=== PATIENT | female | born 1965 | race Caucasian/White ===

== ENCOUNTER 2017-11-29 07:30 | Outpatient (RCR) | payer OTHER, SELFPAY | END 2017-12-20 10:57 | disposition home or self-care (01) | LOC: OT 07:30 | PROVIDERS: Family Provider Family Medicine; Visit Provider Orthopaedic Surgery Adult Reconstructive Orthopaedic Surgery | DX: S43.421A Sprain of right rotator cuff capsule, initial encounter (principal) | CPT/HCPCS: 97110; 97140; 97165 ==

== ENCOUNTER → 2020-09-28 09:56 | Outpatient (POV) | payer OTHER, SELFPAY ==
[2020-09-28 10:31] VITALS: BP 124/64; PULSE 76; RESP 18; O2SAT 100; BMI 20.7
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
== END ==
PROVIDERS: PCP Nurse Practitioner Family; Visit Provider Clinical Nurse Specialist Family Health
DX: M25.551 Pain in right hip (principal); M54.5 Low back pain; M46.1 Sacroiliitis, not elsewhere classified
CPT/HCPCS: 99202; G0463

== ENCOUNTER 2020-10-09 09:59 | Day surgery (SDC) | payer OTHER, SELFPAY ==
[2020-10-09 10:02] VITALS: BP 154/75; PULSE 84; RESP 18; TEMP 36.4; O2SAT 98; BMI 21.0
[2020-10-09 10:24] VITALS: BP 138/54; PULSE 80; RESP 18; O2SAT 98
[2020-10-09 10:27] VITALS: BP 156/70; PULSE 84; RESP 18; O2SAT 100
--- NOTE | 2020-10-09 10:46 | HMH.PMPROC ---
- Procedure Date: 10/09/20 Time: 10:46 Anesthesiologist:: Val Jimenez MD Complications:: None Pre-procedure Diagnosis:: Right-sided sacroiliitis, right-sided greater trochanteric bursitis, right-sided low back pain, right-sided hip pain Post-procedure Diagnosis:: Same Indications for Procedure:: Is a very pleasant 55-year-old white female who presents today with chronic low back pain and chronic hip pain worse on the right related to the above diagnosis. He has tried and failed conservative treatment including oral pain medication and home stretching program. The plan for today is for the patient to undergo right-sided SI joint and right-sided greater trochanteric bursa injection. Procedure Details:: Informed consent was obtained and the risks and benefits of the procedure was going to the patient. Patient was taken to the procedure room. Patient was placed prone on the procedure table. The right hip was prepped using ChloraPrep. The skin and subcutaneous tissues were anesthetized using lidocaine. I placed a 22-gauge spinal needle into the inferior aspect of the right SI joint. Needle placement was confirmed with dye. After this we injected 5 mL bupivacaine 0.25% and Depo-Medrol 40 mg into the right SI joint. The patient tolerated the procedure well with no complications. Next, the skin and subcutaneous tissues overlying the right greater trochanteric bursa was anesthetized using lidocaine. I placed a 22-gauge spinal needle and advanced under fluoroscopic guidance until it contacted the right greater trochanter. Needle placement was confirmed with dye. After this I injected bupivacaine 0.25% 5 mL and Depo-Medrol 40 mg into the right trochanteric bursa. Patient tolerated the procedure well with no complications. Plan and Disposition:: We will follow-up with this patient in 2 weeks. Will reevaluate pain symptoms at that time.
[2020-10-09 10:50] VITALS: BP 135/79; PULSE 70; RESP 18; O2SAT 96
== END 2020-10-09 10:51 | disposition home or self-care (01) ==
LOC: SC.PAINP 10:01
PROVIDERS: PCP Nurse Practitioner Family; Visit Provider Anesthesiology Pain Medicine
DX: M46.1 Sacroiliitis, not elsewhere classified (principal); M70.61 Trochanteric bursitis, right hip; M54.5 Low back pain
CPT/HCPCS: 20610; 27096; 77002; G0260; J1030; Q9966

== ENCOUNTER → 2020-10-26 18:57 | Outpatient (CLI) | payer OTHER, SELFPAY | PROVIDERS: Visit Provider Internal Medicine Adolescent Medicine | DX: R39.15 Urgency of urination (principal) | CPT/HCPCS: 87086 ==

== ENCOUNTER → 2020-10-29 11:42 | Outpatient (POV) | payer OTHER, SELFPAY ==
[2020-10-29 11:55] VITALS: BP 119/75; PULSE 72; RESP 18; O2SAT 100; BMI 21.7
--- NOTE | 2020-10-29 15:32 | HMH.PAINSOAP ---
[facility] Pain Management SOAP Note Subjective:: Patient is a 55-year-old white female who presents today for follow-up after a right SI injection, right trochanteric bursa injection. She is being treated for sacroiliitis and trochanteric bursitis. She is having low back pain right side. And right hip pain. She rates her pain a 10 out of 10. Patient reports she got no relief after the injection. She rates her pain a 10 out of 10 today. She says the pain is primarily in the right low back area with radicular pain into the right lower extremity and into the right foot. The pain is severe. She says it is also going right great toe. She has tried gabapentin along with anti-inflammatories with no relief. She is also tried physical therapy for greater than 6 weeks with no relief. She continues with home stretching. She says she is no longer able to do home stretching due to the pain. She is also using heat which is given her about 20% relief Patient has not had any recent imaging of her lumbar spine. Review of Systems General: No recent weight changes, no fever, no sleep disturbances Respiratory: No cough, no shortness of air, no recurring pulmonary infections Cardiovascular/peripheral vascular: No chest pain, no palpitations, no edema, no shortness of breath Gastrointestinal: No new onset incontinence, normal bowel movements reported Genitourinary: No new onset incontinence Musculoskeletal: Right low back pain with radiation into right leg, right foot and right great toe Psychiatric: Normal mood/affect Neurological: [Denies weakness in extremities], [denies balance issues] Objective:: Physical exam General: Alert and oriented x3, no acute distress, pleasant and cooperative, [on room air] Lungs: Respirations even and unlabored, symmetrical chest expansion Eyes: PERRL Musculoskeletal: Flexion and extension of [] lumbar spine somewhat guarded secondary to pain, deep tendon reflexes normal, strength in upper and lower extremities [5/5], [abnormal gait noted] Neurological: Speech clear, account development representative equal, no gross sensory deficit Assessment:: Low back pain with lumbar radiculopathy symptoms Plan:: Not able to undergo an MRI due to pacemaker. We will order her Lyrica 75 mg 1 tablet p.o. twice daily for her radicular pain. She will also get Flexeril 5 mg 1 tablet p.o. 3 times daily to see if this helps with her pain at bedtime and as needed. Also order the patient prednisone 20 mg 1 tablet p.o. twice daily for 5 days. Patient plans to see Dr. Marie today to discuss her symptoms. I have advised the patient she will still need to undergo a CT scan before we can proceed with any further injective therapy. She is in agreement to this. We will see her back after the scan to reevaluate her symptoms. Patient and I did discuss tramadol, however, she has an allergy to tramadol as well as hydrocodone. We will not be able to prescribe the patient anything stronger than what we have prescribed today. Risks and benefits of the medication have been explained in detail to the patient. The patient has been advised to consult with his/her primary care provider and pharmacist regarding drug-drug interaction of medications currently prescribed. Patient has been instructed to contact the clinic with any concerns before the next appointment. Dr. Guerra has reviewed this note and agrees with this plan of care. This note was dictated using voice recognition software and make contain errors or omissions. [facility] History I have reviewed the patient's past medical history: Yes Medical History: Reports:: Hypertension, Internal Pacemaker Denies:: Cancer, Diabetes Mellitus Type 1, Diabetes Mellitus Type 2, MRSA, Seizures *Have you ever received a pneumonia vaccine?: No *Have you received a flu vaccine this season?: Yes Other Medical History: Denies: Blood Transfusion Reaction Laterality Cases: Right: Arthroscopy Hip Other Surgeries: Yes: Pacemaker Amputation: No
== END ==
PROVIDERS: PCP Nurse Practitioner Family; Visit Provider Clinical Nurse Specialist Family Health
DX: M54.5 Low back pain (principal); M54.16 Radiculopathy, lumbar region
CPT/HCPCS: 99212; G0463

== ENCOUNTER → 2020-11-06 13:15 | Outpatient (CLI) | payer OTHER, SELFPAY ==
--- NOTE | 2020-11-06 13:19 | CT_ITS ---
PROCEDURE: CT LUMBAR SPINE WO CON CLINICAL HISTORY: BACK PAIN Low back pain Rt hip pain COMPARISON: CR [id number] LUMBAR SPINE-2 TO 3 VIEWS from 11/15/2015 TECHNIQUE: Axial images obtained with sagittal and coronal reformats. All CT scans at the facility use one or more dose reduction, viz: automated exposure control, ma/kV adjustment per patient size (including targeted exams where dose is matched to indication, i.e. head), or iterative reconstruction technique. FINDINGS: There is normal alignment. No acute fracture or dislocation. No lytic or blastic change. There is minimal mid lumbar curvature convex right. T11-T12: T11 vertebral body has a corrugated appearance consistent with a hemangioma. T12-L1: Unremarkable. L1-L2: Small area of decreased attenuation is present in the left aspect of the L1 vertebral body with stippled sclerotic foci consistent with a small hemangioma at approximately 12 mm. Degenerative disc disease is present. L2-L3: Unremarkable. L3-L4: Minimal anterior lipping of vertebral bodies. L4-5: Minimal bulging disc with minimal anterior lipping of the vertebral bodies. There is a small left foraminal disc protrusion causing mild left-sided foraminal narrowing abutting the exiting L4 nerve root. L5-S1: Bulging disc which is eccentric toward the right along with endplate hypertrophic change and facet hypertrophy with resultant bilateral foraminal narrowing greater on the right with some impingement upon the exiting right L5 nerve root. A small osteophyte or area of ligamentous calcification noted posterior to the right facet joint. There is partial lumbarization of S1. There are bilateral large saturnino at the SI joints posteriorly. Lucency is noted within the ilium on both sides superior to the staple insertion. There is cortical disruption of the ileitis at the areas of lucency. The symmetric distribution leads 1 to suspect that this is iatrogenic in nature possibly from previous bone marrow biopsy. Please correlate with patient's surgical history. There is a moderate amount of retained colonic feces. Numerous surgical clips are present in the peritoneal area. Gallstones are noted. Nonobstructing punctate right renal calculi are present. There is a small area of fat density within the left kidney suggesting an angio myelolipoma or cortical scar with fat invagination. This measures approximately 6 mm. IMPRESSION: 1. Abnormal CT of the lumbar spine showing degenerative changes with bulging and protruding discs and facet and ligamentum hypertrophy. Please see above for detailed description at each level. 2. Postsurgical changes of the SI joint with lucencies of the ilium on both sides as described above possibly due to prior biopsy. Please correlate with clinical findings. 3. Constipation 4. Gallstones 5. Right nephrolithiasis Dictated by: Hector Christensen MD 11/07/2020 07:38 Hector Christensen MD in [place] 11/07/2020 07:38
== END ==
PROVIDERS: PCP Internal Medicine Adolescent Medicine; Visit Provider Clinical Nurse Specialist Family Health
DX: M54.5 Low back pain (principal)
CPT/HCPCS: 72131

== ENCOUNTER → 2021-02-04 13:51 | Outpatient (CLI) | payer OTHER, SELFPAY ==
[2021-02-04 14:18] LABS: Basophils # 0.1 K/mm3 (0-0.2); Basophils % 1.6 % (0.1-2.0); Eosinophils % 0.4 % (0.1-12.0); Hematocrit 47.2 % (37.0-47.0); Hemoglobin 14.6 g/dL (12.2-16.2); Lymphocytes # 1.4 K/mm3 (0.7-4.5); Lymphocytes % 23.7 % (10-50); Mean Corpuscular HGB Conc 30.8 g/dL (31.8-35.4); Mean Corpuscular Hemoglobin 30.5 pg (27.0-31.2); Mean Corpuscular Volume 98.9 fl (81-99); Mean Platelet Volume 7.6 fl (7.4-10.4); Monocytes # 0.3 K/mm3 (0.1-1.0); Monocytes % 5.2 % (1.7-9.3); Neutrophils % 69.2 % (37.0-80.0); Platelet Count 332 K/mm3 (142-424); Red Blood Count 4.77 M/mm3 (4.20-5.40); Red Cell Distribution Width 14.7 % (11.5-17.5); White Blood Count 5.8 K/mm3 (4.8-10.8)
[2021-02-04 15:01] LABS: Alanine Aminotransferase 15 U/L (12-78); Albumin Level 4.9 g/dl (3.5-5.0); Albumin/Globulin Ratio 1.7 (1.1-1.8); Alkaline Phosphatase 143 U/L (38-126); Anion Gap 16.4 mEq/L (5-15); Aspartate Amino Transferase 25 U/L (14-36); Bilirubin,Total 0.6 mg/dl (0.2-1.3); Blood Urea Nitrogen 20 mg/dl (7-17); Calcium 11.1 mg/dl (8.4-10.2); Carbon Dioxide 22 mmol/L (22.0-30.0); Chloride 108 mmol/L (98-107); Chol/HDL Ratio 1.9 (1-3.5); Cholesterol 205 mg/dl (140-200); Estimated Glomerular Filt Rate 74 ml/min (>60); GFR (African American) 90 ML/MIN (>60); Globulin 2.9 g/dL (1.3-3.2); Glucose 89 mg/dl (74-100); HDL Cholesterol 110 mg/dl (40-60); Potassium 4.4 mmoL/L (3.5-5.1); Sodium 142 mmol/L (136-145); Total Protein,Serum 7.8 g/dl (6.3-8.2); Triglycerides 104 mg/dl (30-150); VLDL Cholesterol 21 mg/dL (0-40)
[2021-02-04 15:12] LABS: Direct LDL Cholesterol 63.37 mg/dL (100-129)
== END ==
PROVIDERS: Visit Provider Internal Medicine Adolescent Medicine
DX: R30.0 Dysuria (principal); I95.0 Idiopathic hypotension
CPT/HCPCS: 36415; 80053; 80061; 85025; 87086; 87088; 87186

== ENCOUNTER → 2021-03-30 08:42 | Outpatient (CLI) | payer OTHER, SELFPAY ==
--- NOTE | 2021-03-30 08:45 | NM_ITS ---
PROCEDURE: NM BONE SCAN WHOLE BODY CLINICAL INDICATION: ABN FINDINGS ON LUMBER CT, EVAL FOR METASTIC DISEASE COMPARISON: CT CT LUMBAR SPINE WO CON from 11/06/2020 FINDINGS: Dose: 25.5 mCi technetium MDP Whole body images are obtained showing no abnormal increased activity. No evidence of increased activity within the ilium. There is slight decreased activity within the medial aspect of the right ilium as seen on the posterior views which may correspond to the defect noted on the CT scan. Has the patient had prior surgical procedure to this region? IMPRESSION: No evidence of increased activity that would indicate metastatic disease. Small area of decreased activity in the medial aspect of the right ilium corresponding to the defect noted on the CT scan. Has the patient had prior intervention at this region? Dictated by: Hector Christensen MD 03/31/2021 09:03 Hector Christensen MD in [place] 03/31/2021 09:03
--- NOTE | 2021-03-30 09:17 | HMH.ITSHM ---
Current Home Medications as stated by this patient Bre Gray or rental representative. []BUPROPION LYRICA MIDODRINE CYCLOBENAZAPRINE ASA
== END ==
PROVIDERS: PCP Internal Medicine Adolescent Medicine; Visit Provider Orthopaedic Surgery
DX: M54.50 Low back pain, unspecified (principal); R93.89 Abnormal findings on diagnostic imaging of other specified body structures
CPT/HCPCS: 78306; A9503

== ENCOUNTER → 2021-03-31 16:02 | Outpatient (CLI) | payer OTHER, SELFPAY | PROVIDERS: Visit Provider Nurse Practitioner Family | DX: N39.0 Urinary tract infection, site not specified (principal); B96.20 Unspecified Escherichia coli [E. coli] as the cause of diseases classified elsewhere | CPT/HCPCS: 87086; 87088; 87186 ==

== ENCOUNTER → 2021-06-28 09:24 | Outpatient (POV) | payer OTHER, SELFPAY ==
[2021-06-28 10:04] VITALS: BP 113/67; PULSE 68; RESP 18; TEMP 36.5; O2SAT 98; BMI 21.7
--- NOTE | 2021-06-28 11:07 | HMH.PAINSOAP ---
[facility] Pain Management SOAP Note Subjective:: Patient is a pleasant 56-year-old female who presents today for follow-up. Patient has a surgical history of bilateral SI fusion in 1996. She presents today with low back pain and right SI/Hip pain. We have previously done an SI injection with her last year but she was not able to follow-up. She says that she had minimal relief after the injection. Even with all the interventions on her right SI, she is still complaining of consistent right SI/hip pain. She is also complaining of low back pain that radiates to her right hip, leg, and foot. She denies any recent falls or traumas. She takes tylenol and ibuprofen for pain which provides minimal relief. She's also had two rounds of medial branch block at L3-L4, L4-L5 by Dr. Euceda/Dr. Peterson, ortho. She also had minimal relief from these injections. She rates her pain today as 8/10. Kana [id number], MEQ 0. ORT score is low risk. General: No recent weight changes, no fever, no sleep disturbances Respiratory: No cough, no shortness of air, no recurring pulmonary infections Cardiovascular/peripheral vascular: No chest pain, no palpitations, no edema, no shortness of breath Gastrointestinal: No new onset incontinence, normal bowel movements reported Genitourinary: No new onset incontinence Musculoskeletal: Low back pain, right hip pain Psychiatric: [Normal mood/affect] Neurological: [Denies weakness in extremities], [denies balance issues] Objective:: General: Alert and oriented x3, no acute distress, pleasant and cooperative, [on room air] Lungs: Respirations even and unlabored, symmetrical chest expansion Eyes: PERRL Musculoskeletal: Flexion and extension of lumbar [spine] somewhat guarded secondary to pain, [antalgic gait noted]; right hip is positive for LYNNE, Quentin's, compression, and distraction. Neurological: Speech clear, no gross sensory deficit Assessment:: Lumbar facet arthropathy Lumbar spondylosis Sacroiliitis Degenerative disease of the lumbar spine with lumbar radiculopathy symptoms Plan:: PROCEDURE: CT LUMBAR SPINE WO CON CLINICAL HISTORY: BACK PAIN Low back pain Rt hip pain COMPARISON: CR [id number] LUMBAR SPINE-2 TO 3 VIEWS from 11/15/2015 TECHNIQUE: Axial images obtained with sagittal and coronal reformats. All CT scans at the facility use one or more dose reduction, viz: automated exposure control, ma/kV adjustment per patient size (including targeted exams where dose is matched to indication, i.e. head), or iterative reconstruction technique. FINDINGS: There is normal alignment. No acute fracture or dislocation. No lytic or blastic change. There is minimal mid lumbar curvature convex right. T11-T12: T11 vertebral body has a corrugated appearance consistent with a hemangioma. T12-L1: Unremarkable. L1-L2: Small area of decreased attenuation is present in the left aspect of the L1 vertebral body with stippled sclerotic foci consistent with a small hemangioma at approximately 12 mm. Degenerative disc disease is present. L2-L3: Unremarkable. L3-L4: Minimal anterior lipping of vertebral bodies. L4-5: Minimal bulging disc with minimal anterior lipping of the vertebral bodies. There is a small left foraminal disc protrusion causing mild left-sided foraminal narrowing abutting the exiting L4 nerve root. L5-S1: Bulging disc which is eccentric toward the right along with endplate hypertrophic change and facet hypertrophy with resultant bilateral foraminal narrowing greater on the right with some impingement upon the exiting right L5 nerve root. A small osteophyte or area of ligamentous calcification noted posterior to the right facet joint. There is partial lumbarization of S1. There are bilateral large saturnino at the SI joints posteriorly. Lucency is noted within the ilium on both sides superior to the staple insertion. There is cortical disruption of the ileitis at the
== END ==
PROVIDERS: Visit Provider Student in an Organized Health Care Education/Training Program
DX: M54.06 Panniculitis affecting regions of neck and back, lumbar region (principal); M47.896 Other spondylosis, lumbar region; M46.1 Sacroiliitis, not elsewhere classified; M51.16 Intervertebral disc disorders with radiculopathy, lumbar region
CPT/HCPCS: 99212; G0463

== ENCOUNTER → 2021-07-08 07:01 | Outpatient (CLI) | payer OTHER, SELFPAY ==
[2021-07-08 14:36] LABS: Basophils # 0.1 K/mm3 (0-0.2); Basophils % 1.8 % (0.1-2.0); Eosinophils # 0.1 K/mm3 (0.0-0.4); Eosinophils % 2.7 % (0.1-12.0); Hematocrit 39.8 % (37.0-47.0); Hemoglobin 12.4 g/dL (12.2-16.2); Lymphocytes # 1.7 K/mm3 (0.7-4.5); Lymphocytes % 37.2 % (10-50); Mean Corpuscular HGB Conc 31.2 g/dL (31.8-35.4); Mean Corpuscular Hemoglobin 30.7 pg (27.0-31.2); Mean Corpuscular Volume 98.2 fl (81-99); Mean Platelet Volume 9.8 fl (7.4-10.4); Monocytes # 0.3 K/mm3 (0.1-1.0); Monocytes % 6.9 % (1.7-9.3); Neutrophils # 2.4 K/mm3 (1.8-7.8); Neutrophils % 51.4 % (37.0-80.0); Platelet Count 296 K/mm3 (142-424); Red Blood Count 4.05 M/mm3 (4.20-5.40); White Blood Count 4.6 K/mm3 (4.8-10.8)
[2021-07-08 14:40] LABS: Alanine Aminotransferase 22 U/L (12-78); Albumin Level 4.5 g/dl (3.5-5.0); Albumin/Globulin Ratio 1.9 (1.1-1.8); Alkaline Phosphatase 114 U/L (38-126); Anion Gap 14.3 mEq/L (5-15); Aspartate Amino Transferase 25 U/L (14-36); Bilirubin,Total 0.6 mg/dl (0.2-1.3); Blood Urea Nitrogen 35 mg/dl (7-17); Calcium 10.4 mg/dl (8.4-10.2); Carbon Dioxide 25 mmol/L (22.0-30.0); Chloride 105 mmol/L (98-107); Estimated Glomerular Filt Rate 51 ml/min (>60); GFR (African American) 62 ML/MIN (>60); Globulin 2.4 g/dL (1.3-3.2); Glucose 91 mg/dl (74-100); Potassium 4.3 mmoL/L (3.5-5.1); Sodium 140 mmol/L (136-145); Total Protein,Serum 6.9 g/dl (6.3-8.2)
== END ==
PROVIDERS: Visit Provider Nurse Practitioner Family
DX: N39.0 Urinary tract infection, site not specified (principal); E83.52 Hypercalcemia
CPT/HCPCS: 36415; 80053; 83970; 85025

== ENCOUNTER 2021-07-23 09:41 | Day surgery (SDC) | payer OTHER, SELFPAY ==
[2021-07-23 10:08] VITALS: BP 115/91; PULSE 86; RESP 16; TEMP 36.4; O2SAT 100; BMI 21.7
[2021-07-23 10:23] VITALS: BP 119/70; BP 139/76; PULSE 55; PULSE 67; RESP 18; RESP 20; O2SAT 100; O2SAT 97
[2021-07-23 10:25] VITALS: BP 119/72; PULSE 77; RESP 20; O2SAT 100
[2021-07-23 10:31] VITALS: BP 127/70; PULSE 63; RESP 20; O2SAT 90
--- NOTE | 2021-07-23 10:39 | HMH.PMPROC ---
- Procedure Date: 07/23/21 Time: 10:39 Anesthesiologist:: Daryn Eller CRNA Complications:: None Pre-procedure Diagnosis:: Generative disc disease lumbar spine multiple levels. Post-procedure Diagnosis:: Same Indications for Procedure:: Patient is a very pleasant 56-year-old white female who is responded well in the past in our clinic with bilateral SI joint injections. Trochanteric bursa injections. However, she is having this dull achy pain in the low back midline accompanied with some bilateral leg radicular symptoms. She presents today for lumbar epidural steroid injection at the L4-5 level. Procedure Details:: Procedure: Lumbar epidural steroid injection under fluoroscopy Informed consent was obtained and the risks and benefits of the procedure were explained to the patient. The patient was taken to the procedure room and noninvasive monitors placed, including noninvasive blood pressure cuff and pulse oximeter. The back was viewed using C-arm Fluoroscopy and prepped using Betadine as a cleansing solution and the L4-L5 interspace was palpated. Skin and subcutaneous tissues were anesthetized using lidocaine 1.5% and a 25-gauge needle. After this, an 18-gauge Touhy epidural needle was placed into the L4-L5 interspace and advanced using fluoroscopic guidance and loss of resistance to air until the epidural space was encountered. After confirmation of needle placement in the epidural space, with dye, a solution containing lidocaine 1.5%, 4 mL and Depo-Medrol 80 mg were incrementally injected into the lumbar epidural space. The patient tolerated the procedure well with no complications. The patient was observed in the Pain Clinic and then discharged home neurologically intact. Plan and Disposition:: Patient was discharged without incident. She will follow up in the clinic.
== END 2021-07-23 10:40 | disposition home or self-care (01) ==
LOC: SC.PAINP 09:42
PROVIDERS: PCP Internal Medicine Adolescent Medicine; Visit Provider Nurse Anesthetist, Certified Registered
DX: M46.1 Sacroiliitis, not elsewhere classified; M47.896 Other spondylosis, lumbar region; M51.16 Intervertebral disc disorders with radiculopathy, lumbar region; I10 Essential (primary) hypertension; Z95.0 Presence of cardiac pacemaker; J45.909 Unspecified asthma, uncomplicated; F41.9 Anxiety disorder, unspecified; F32.A Depression, unspecified
CPT/HCPCS: 62323; J1040

== ENCOUNTER → 2021-09-10 08:10 | Outpatient (CLI) | payer OTHER, SELFPAY ==
[2021-09-10 08:19] LABS: Microscopic, Urine URINE MICROSCOPIC (MICROSCOPIC)
[2021-09-10 08:38] LABS: Basophils # 0.1 K/mm3 (0-0.2); Basophils % 1.8 % (0.1-2.0); Eosinophils # 0.1 K/mm3 (0.0-0.4); Eosinophils % 1.5 % (0.1-12.0); Hematocrit 40.1 % (37.0-47.0); Hemoglobin 12.6 g/dL (12.2-16.2); Lymphocytes # 1.5 K/mm3 (0.7-4.5); Mean Corpuscular HGB Conc 31.4 g/dL (31.8-35.4); Mean Corpuscular Hemoglobin 30.6 pg (27.0-31.2); Mean Corpuscular Volume 97.4 fl (81-99); Mean Platelet Volume 7.3 fl (7.4-10.4); Monocytes # 0.3 K/mm3 (0.1-1.0); Monocytes % 6.2 % (1.7-9.3); Neutrophils # 3.3 K/mm3 (1.8-7.8); Neutrophils % 62.4 % (37.0-80.0); Platelet Count 355 K/mm3 (142-424); Red Blood Count 4.11 M/mm3 (4.20-5.40); Red Cell Distribution Width 14.6 % (11.5-17.5); White Blood Count 5.2 K/mm3 (4.8-10.8)
[2021-09-10 08:44] LABS: Bilirubin,Urine Negative (Negative); Blood, Urine 2+ (Negative); Color,Urine YELLOW (Yellow); Glucose,Urine (UA) Negative (Negative); Ketones,Urine Negative (Negative); Leukocyte Esterase,Urine 1+ (Negative); Nitrate,Urine Negative (Negative); Protein,Urine 2+ (Negative); Specific Gravity, Urine 1.025 (1.005-1.030); Urobilinogen,Urine 0.2 EU/dl (0.2)
[2021-09-10 09:17] LABS: Albumin Level 4.7 g/dl (3.5-5.0); Anion Gap 13.1 mEq/L (5-15); Blood Urea Nitrogen 22 mg/dl (7-17); Calcium 10.9 mg/dl (8.4-10.2); Carbon Dioxide 23 mmol/L (22.0-30.0); Chloride 107 mmol/L (98-107); Estimated Glomerular Filt Rate 65 ml/min (>60); GFR (African American) 78 ML/MIN (>60); Glucose 96 mg/dl (74-100); Intact Parathyroid Hormone 103.1 pg/mL (7.5-53.5); Phosphorous 3.3 mg/dl (2.5-4.5); Potassium 4.1 mmoL/L (3.5-5.1); Sodium 139 mmol/L (136-145)
[2021-09-10 09:18] LABS: Appearance,Urine Turbid (Clear)
[2021-09-10 09:19] LABS: Bacteria,Urine 1+ /lpf; Creatinine,Urine Random 54 mg/dL (Not Estab.); RBC,Urine Occasional #/hpf (0-3); Squamous Epithelial Cell,Urine Occasional #/hpf (0-5)
== END ==
PROVIDERS: PCP Internal Medicine Adolescent Medicine; Visit Provider Internal Medicine Nephrology
DX: N28.9 Disorder of kidney and ureter, unspecified (principal); E21.3 Hyperparathyroidism, unspecified; E55.9 Vitamin D deficiency, unspecified
CPT/HCPCS: 36415; 80069; 81001; 82306; 82570; 83970; 84155; 85025; 87086; 87088; 87186

== ENCOUNTER → 2021-09-13 13:18 | Outpatient (POV) | payer OTHER, SELFPAY | PROVIDERS: Visit Provider Internal Medicine Nephrology | DX: Z00.00 Encounter for general adult medical examination without abnormal findings (principal) ==

== ENCOUNTER → 2021-10-20 08:24 | Outpatient (CLI) | payer OTHER, SELFPAY ==
--- NOTE | 2021-10-20 08:29 | US_ITS ---
FINAL REPORT CLINICAL HISTORY: ELEVATED SERUM CALCIUM,ELEVATED PARATHYROID HORMONE,HYPERTHY FINDINGS: Limited sonographic images of the neck soft tissue were obtained. There is no evidence of adenopathy. Small bilateral thyroid nodules are seen. Individual nodules measure up to 7 mm. IMPRESSION: Small bilateral thyroid nodules. Dedicated thyroid ultrasound could better evaluate. Reviewed, Interpreted and Dictated by Wander Watts MD Transcribed by Telma Reed Authenticated and [facility]
--- NOTE | 2021-10-20 08:31 | NM_ITS ---
FINAL REPORT CLINICAL HISTORY: HYPERTHYROIDISM,ELEVATED SERUM CALCIUM,ELEVATED PARATHYROID HORMONE COMPARISON: 19.0 mCi technetium 99 M sestamibi was injected into the right hand. FINDINGS: On the immediate images, there is diffuse activity throughout both lobes of the thyroid. On the delayed 2 hour images, there is no discrete focus of residual activity. There is no definite evidence of parathyroid adenoma. IMPRESSION: No definite evidence of parathyroid adenoma. Reviewed, Interpreted and Dictated by Wander Watts MD Transcribed by Telma Reed Authenticated and . [facility]
== END ==
PROVIDERS: PCP Internal Medicine Adolescent Medicine; Visit Provider Internal Medicine Nephrology
DX: E83.52 Hypercalcemia (principal); E34.9 Endocrine disorder, unspecified
CPT/HCPCS: 76536; 78071; A9500

== ENCOUNTER → 2021-11-29 13:02 | Outpatient (CLI) | payer OTHER, SELFPAY ==
[2021-11-29 17:23] LABS: Basophils # 0.1 K/mm3 (0-0.2); Basophils % 1.5 % (0.1-2.0); Eosinophils # 0.1 K/mm3 (0.0-0.4); Eosinophils % 2.5 % (0.1-12.0); Hematocrit 38.5 % (37.0-47.0); Hemoglobin 11.4 g/dL (12.2-16.2); Lymphocytes # 1.5 K/mm3 (0.7-4.5); Lymphocytes % 31.8 % (10-50); Mean Corpuscular HGB Conc 29.6 g/dL (31.8-35.4); Mean Corpuscular Hemoglobin 29.7 pg (27.0-31.2); Mean Corpuscular Volume 100.4 fl (81-99); Mean Platelet Volume 9.8 fl (7.4-10.4); Monocytes # 0.4 K/mm3 (0.1-1.0); Monocytes % 7.6 % (1.7-9.3); Neutrophils # 2.8 K/mm3 (1.8-7.8); Neutrophils % 56.6 % (37.0-80.0); Platelet Count 309 K/mm3 (142-424); Red Blood Count 3.84 M/mm3 (4.20-5.40); White Blood Count 4.9 K/mm3 (4.8-10.8)
[2021-11-29 19:00] LABS: Alanine Aminotransferase 12 U/L (12-78); Albumin Level 3.8 g/dl (3.5-5.0); Albumin/Globulin Ratio 1.7 (1.1-1.8); Alkaline Phosphatase 117 U/L (38-126); Anion Gap 10.5 mEq/L (5-15); Aspartate Amino Transferase 19 U/L (14-36); Blood Urea Nitrogen 22 mg/dl (7-17); Calcium 9.4 mg/dl (8.4-10.2); Carbon Dioxide 25 mmol/L (22.0-30.0); Chloride 110 mmol/L (98-107); Chol/HDL Ratio 2.3 (1-3.5); Cholesterol 160 mg/dl (140-200); Estimated Glomerular Filt Rate 57 ml/min (>60); GFR (African American) 69 ML/MIN (>60); Globulin 2.2 g/dL (1.3-3.2); HDL Cholesterol 71 mg/dl (40-60); Potassium 4.5 mmoL/L (3.5-5.1); Sodium 141 mmol/L (136-145); Triglycerides 188 mg/dl (30-150); VLDL Cholesterol 38 mg/dL (0-40)
[2021-11-29 19:11] LABS: Intact Parathyroid Hormone 91.2 pg/mL (7.5-53.5)
[2021-11-29 19:15] LABS: Bilirubin,Total < 0.1 mg/dl (0.2-1.3)
[2021-11-29 19:20] LABS: Glucose 44 mg/dl (74-100)
[2021-12-01 13:47] LABS: Direct LDL Cholesterol 52 mg/dL (100-129)
[2021-12-04 21:07] LABS: C-Telopeptide Serum 836 pg/mL (.)
== END ==
PROVIDERS: PCP Internal Medicine; Visit Provider Internal Medicine
DX: I95.9 Hypotension, unspecified (principal); E78.5 Hyperlipidemia, unspecified; E21.3 Hyperparathyroidism, unspecified; E83.52 Hypercalcemia; N19 Unspecified kidney failure; N39.0 Urinary tract infection, site not specified; B96.89 Other specified bacterial agents as the cause of diseases classified elsewhere; Z87.442 Personal history of urinary calculi
CPT/HCPCS: 80053; 80061; 82523; 83970; 85025; 87086; 87088; 87186

== ENCOUNTER → 2022-01-10 12:48 | Outpatient (CLI) | payer OTHER, SELFPAY | PROVIDERS: PCP Internal Medicine; Visit Provider Internal Medicine | DX: N39.0 Urinary tract infection, site not specified (principal); B96.29 Other Escherichia coli [E. coli] as the cause of diseases classified elsewhere | CPT/HCPCS: 87086; 87088; 87186 ==

== ENCOUNTER → 2022-02-21 15:00 | Outpatient (CLI) | payer OTHER, SELFPAY ==
[2022-02-21 16:16] LABS: Basophils # 0.1 K/mm3 (0-0.2); Basophils % 1.6 % (0.1-2.0); Eosinophils # 0.2 K/mm3 (0.0-0.4); Eosinophils % 2.7 % (0.1-12.0); Hematocrit 39.3 % (37.0-47.0); Hemoglobin 12.5 g/dL (12.2-16.2); Lymphocytes # 1.9 K/mm3 (0.7-4.5); Lymphocytes % 33.5 % (10-50); Mean Corpuscular HGB Conc 31.9 g/dL (31.8-35.4); Mean Corpuscular Hemoglobin 29.8 pg (27.0-31.2); Mean Corpuscular Volume 93.5 fl (81-99); Mean Platelet Volume 8.8 fl (7.4-10.4); Monocytes # 0.4 K/mm3 (0.1-1.0); Monocytes % 6.7 % (1.7-9.3); Neutrophils # 3.2 K/mm3 (1.8-7.8); Neutrophils % 55.4 % (37.0-80.0); Platelet Count 364 K/mm3 (142-424); Red Blood Count 4.21 M/mm3 (4.20-5.40); Red Cell Distribution Width 14.4 % (11.5-17.5); Total Iron Binding Capacity 494 ug/dL (265-497); White Blood Count 5.7 K/mm3 (4.8-10.8)
[2022-02-21 17:14] LABS: Vitamin B12 216 pg/mL (239-931)
[2022-02-21 17:46] LABS: Iron 57 ug/dL (37-170)
== END ==
PROVIDERS: PCP Internal Medicine; Visit Provider Internal Medicine
DX: I95.9 Hypotension, unspecified (principal); E83.52 Hypercalcemia; D64.9 Anemia, unspecified
CPT/HCPCS: 36415; 82607; 82746; 83540; 83550; 85025

== ENCOUNTER → 2022-04-15 16:49 | Outpatient (CLI) | payer OTHER, SELFPAY | PROVIDERS: PCP Internal Medicine; Visit Provider Internal Medicine | DX: N39.0 Urinary tract infection, site not specified (principal); B96.89 Other specified bacterial agents as the cause of diseases classified elsewhere | CPT/HCPCS: 87086; 87088; 87186 ==

== ENCOUNTER → 2022-05-06 16:43 | Outpatient (CLI) | payer OTHER, SELFPAY | PROVIDERS: PCP Internal Medicine; Visit Provider Internal Medicine | DX: N39.0 Urinary tract infection, site not specified (principal); B96.29 Other Escherichia coli [E. coli] as the cause of diseases classified elsewhere | CPT/HCPCS: 87086; 87088; 87186 ==

== ENCOUNTER 2022-05-08 04:19 | Emergency (ER) | payer OTHER, SELFPAY ==
[2022-05-08 04:36] LABS: Microscopic, Urine URINE MICROSCOPIC (MICROSCOPIC)
[2022-05-08 04:39] VITALS: BP 126/66; PULSE 69; RESP 18; TEMP 36.7; O2SAT 97; BMI 22.6
[2022-05-08 04:42] LABS: Appearance,Urine CLEAR (Clear); Blood, Urine TRACE-I (Negative); Color,Urine YELLOW (Yellow); Glucose,Urine (UA) TRACE (Negative); Ketones,Urine 1+ (Negative); Leukocyte Esterase,Urine 1+ (Negative); Nitrate,Urine POSITIVE (Negative); PH,Urine 6.5 (5.0-8.5); Protein,Urine 1+ (Negative); Specific Gravity, Urine 1.025 (1.005-1.030)
--- NOTE | 2022-05-08 04:46 | CT_ITS ---
PROCEDURE INFORMATION: Exam: CT Abdomen And Pelvis Without Contrast Exam date and time: 05/08/2022 5:01 AM Age: 57 years old Clinical indication: Abdominal pain; Additional info: Right flank pain TECHNIQUE: Imaging protocol: Computed tomography of the abdomen and pelvis without contrast. Radiation optimization: All CT scans at this facility use at least one of these dose optimization techniques: automated exposure control; mA and/or kV adjustment per patient size (includes targeted exams where dose is matched to clinical indication); or iterative reconstruction. Other protocol: This patient has received 0 known CTs and 0 known cardiac nuclear medicine studies in the 12 months prior to the current study. COMPARISON: NM BONE SCAN WHOLE BODY 03/30/2021 1:28 PM FINDINGS: Liver: Normal. No mass. Gallbladder and bile ducts: Multiple gallstones. No evidence of acute cholecystitis. Pancreas: Normal. No ductal dilation. Spleen: Benign calcifications of the spleen. Adrenal glands: Normal. No mass. Kidneys and ureters: No hydronephrosis, hydroureter, nephrolithiasis, or urolithiasis is present. Stomach and bowel: Prior small bowel resection. Right lower quadrant ostomy. Appendix: No evidence of appendicitis. Intraperitoneal space: Unremarkable. No free air. No significant fluid collection. Vasculature: Unremarkable. No abdominal aortic aneurysm. Lymph nodes: Unremarkable. No enlarged lymph nodes. Urinary bladder: Unremarkable as visualized. Reproductive: Prior hysterectomy. 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 Soft tissues: Unremarkable. IMPRESSION: 1. No acute process to explain the patient's abdominal pain. 2. Cholelithiasis without acute cholecystitis. 3. No evidence of renal stone or obstruction. 4. Prior small bowel resections. COMMENTS: Consistent with the [employer]'s Incidental Findings Committee white paper (J Am Ken Radiol 2018): Any incidental renal lesion less than 1 cm or classified as too small to characterize, or any incidental cystic renal lesion characterized as simple-appearing, is likely benign. No follow-up imaging is recommended for these lesions per consensus recommendations based on imaging criteria.
--- NOTE | 2022-05-08 04:47 | HMH.EDGENADL ---
Discharge Plan Disposition Patient Disposition: Home, Self-Care Condition: Good Chief Complaint: Urogenital-Female Prescriptions Prescriptions: New cephalexin 500 mg capsule 500 mg PO BID 7 Days Qty: 14 0RF No Action midodrine 5 MG tablet 5 mg PO DAILY aspirin 81 MG tablet,chewable 81 mg PO DAILY bupropion HCl 100 MG tablet sustained-release 12 hr 100 mg PO BID cetirizine 10 MG tablet 10 mg PO DAILY omeprazole 20 MG capsule,delayed release(DR/EC) 20 mg PO DAILY meloxicam 7.5 MG tablet 7.5 mg PO DAILY Referrals Follow up/Referrals: Honorio Mackey MD [Primary Care Provider] - See instructions Clinical Impressions Clinical Impression: Urinary tract infection Instructions Patient Instructions: DI for Urinary Tract Infection (UTI), Cephalexin Discharge ED Provider: Hoang Diaz Adult HPI General Chief complaint: Urogenital-Female Stated complaint: Hurts with voiding Time Seen by Provider: 05/08/22 04:29 Mode of Arrival: Ambulatory Source of Information: Patient Limitations: No Limitations Description of Symptoms (Recalled from ER Triage Doc. by RN): Pt arrives to er private vehicle. 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 States that she cath's herself 10x a day. Was seen by pcp on Monday and diagnosed with a uti and prescribed macrobid and pyridium. States that she was seen a few weeks ago for the same issue and was prescribed the same medication. States that there was a urine culture completed at that time to diagnose cause of uti. Pt states that she continues to have lower back and groin pain that continues to get worse. History of Present Illness HPI narrative: 57-year-old female with history of low back pain, arrives via private vehicle, states she frequently self catheterizes since 2016 urinary diversion, approximately 10 times a day. She was seen by PCP on 04/15, for dysuria and burning and hematuria and was diagnosed with UTI, placed on Macrobid and Pyridium. She states over the last week she had noticed recurrence of symptoms again, has not been on any other subsequently antibiotics. She presents tonight with complaint of persistent dysuria, groin pain, lower back pain. She states she has had bladder stones in the past, denies any nephrolithiasis. She denies fevers, nausea or vomiting. Related Data Home Medications Medication Instructions Recorded Confirmed aspirin 81 mg chewable tablet 81 mg PO DAILY preventative 09/28/20 07/23/21 bupropion HCl 100 mg tablet,12 hr 100 mg PO BID mood 09/28/20 07/23/21 sustained-release midodrine 5 mg tablet 5 mg PO DAILY BP 09/28/20 07/23/21 cetirizine 10 mg tablet 10 mg PO DAILY Allergy symptoms 06/28/21 07/23/21 omeprazole 20 mg capsule,delayed 20 mg PO DAILY GERD 06/28/21 07/23/21 release meloxicam 7.5 mg tablet 7.5 mg PO DAILY Pain 07/23/21 07/23/21 Previous Rx's Medication Instructions Recorded cephalexin 500 mg capsule 500 mg PO BID 7 days #14 caps 05/08/22 Allergies Allergy/AdvReac Type Severity Reaction Status Date / Time amitriptyline [From Elavil] Allergy Intermediate PASS OUT Verified 07/23/21 10:09 acetaminophen [From Percocet] Allergy Mild I-ITCHING Verified 07/23/21 10:09 hydrocodone [From Lortab] Allergy Mild I-ITCHING Verified 07/23/21 10:09 ketorolac [From Toradol] Allergy Mild I-ITCHING Verified 07/23/21 10:09 sulfamethoxazole Allergy Mild I-ITCHING Verified 07/23/21 10:09 [From Bactrim] trimethoprim [From Bactrim] Allergy Mild I-ITCHING Verified 07/23/21 10:09 butorphanol [From STADOL] Allergy Unknown Verified 07/23/21 10:09 ciprofloxacin [CIPROFLOXACIN] Allergy Unknown Verified 07/23/21 10:09 methadone [METHADONE] Allergy Unknown Verified 07/23/21 10:09 morphine [MORPHINE] Allergy Unknown Verified 07/23/21 10:09 oxycodone [OXYCODONE] Allergy Unknown BLISTERS Verified 07/23/21 10:09 IN MOUTH sumatriptan [From IMITREX] Allergy Unknow
[2022-05-08 04:58] LABS: Bacteria,Urine 1+ /lpf; Bilirubin,Urine 1+ (Negative); RBC,Urine Occasional #/hpf (0-3); Squamous Epithelial Cell,Urine Occasional #/hpf (0-5); WBC,Urine 20-50 #/hpf (0-3)
[2022-05-08 07:15] LABS: Alanine Aminotransferase 13 U/L (12-78); Albumin Level 4.6 g/dl (3.5-5.0); Albumin/Globulin Ratio 1.9 (1.1-1.8); Alkaline Phosphatase 128 U/L (38-126); Aspartate Amino Transferase 19 U/L (14-36); Bilirubin,Total 0.6 mg/dl (0.2-1.3); Blood Urea Nitrogen 21 mg/dl (7-17); Carbon Dioxide 23 mmol/L (22.0-30.0); Chloride 111 mmol/L (98-107); Creatinine Clearance Estimated 53 mL/min (50-200); Estimated Glomerular Filt Rate 57 ml/min (>60); GFR (African American) 69 ML/MIN (>60); Globulin 2.4 g/dL (1.3-3.2); Glucose 105 mg/dl (74-100); Sodium 141 mmol/L (136-145)
[2022-05-08 07:33] LABS: Basophils # 0.1 K/mm3 (0-0.2); Basophils % 1.5 % (0.1-2.0); Eosinophils # 0.1 K/mm3 (0.0-0.4); Hematocrit 35.1 % (37.0-47.0); Hemoglobin 11.2 g/dL (12.2-16.2); Lymphocytes # 1.6 K/mm3 (0.7-4.5); Lymphocytes % 27.4 % (10-50); Mean Corpuscular HGB Conc 31.9 g/dL (31.8-35.4); Mean Corpuscular Hemoglobin 30.4 pg (27.0-31.2); Mean Corpuscular Volume 95.2 fl (81-99); Mean Platelet Volume 8.4 fl (7.4-10.4); Monocytes # 0.3 K/mm3 (0.1-1.0); Monocytes % 5.8 % (1.7-9.3); Neutrophils # 3.8 K/mm3 (1.8-7.8); Neutrophils % 64.3 % (37.0-80.0); Platelet Count 308 K/mm3 (142-424); Red Blood Count 3.69 M/mm3 (4.20-5.40); Red Cell Distribution Width 14.9 % (11.5-17.5); White Blood Count 5.9 K/mm3 (4.8-10.8)
[2022-05-08 08:00] VITALS: BP 123/73; PULSE 71; RESP 18; TEMP 36.7; O2SAT 98
== END 2022-05-08 08:00 | disposition home or self-care (01) ==
PROVIDERS: Emergency Provider Emergency Medicine; PCP Internal Medicine
DX: N39.0 Urinary tract infection, site not specified (principal)
CPT/HCPCS: 74176; 80053; 81001; 85025; 87086; 99285

== ENCOUNTER → 2022-08-15 12:36 | Outpatient (CLI) | payer OTHER, SELFPAY ==
[2022-08-15 15:14] LABS: Basophils % 0.4 % (0.1-2.0); Eosinophils # 0.1 K/mm3 (0.0-0.4); Eosinophils % 1.9 % (0.1-12.0); Hematocrit 39.6 % (37.0-47.0); Hemoglobin 12.5 g/dL (12.2-16.2); Lymphocytes # 1.9 K/mm3 (0.7-4.5); Lymphocytes % 28.5 % (10-50); Mean Corpuscular HGB Conc 31.6 g/dL (31.8-35.4); Mean Corpuscular Hemoglobin 28.7 pg (27.0-31.2); Mean Corpuscular Volume 90.7 fl (81-99); Mean Platelet Volume 9.4 fl (7.4-10.4); Monocytes # 0.4 K/mm3 (0.1-1.0); Monocytes % 6.3 % (1.7-9.3); Neutrophils # 4.1 K/mm3 (1.8-7.8); Neutrophils % 62.9 % (37.0-80.0); Platelet Count 310 K/mm3 (142-424); Red Blood Count 4.36 M/mm3 (4.20-5.40); Red Cell Distribution Width 13.8 % (11.5-17.5); White Blood Count 6.5 K/mm3 (4.8-10.8)
[2022-08-15 15:49] LABS: Alanine Aminotransferase 17 U/L (12-78); Albumin Level 4.8 g/dl (3.5-5.0); Albumin/Globulin Ratio 1.9 (1.1-1.8); Alkaline Phosphatase 138 U/L (38-126); Anion Gap 18.8 mEq/L (5-15); Aspartate Amino Transferase 25 U/L (14-36); Bilirubin,Total 0.6 mg/dl (0.2-1.3); Blood Urea Nitrogen 25 mg/dl (7-17); Calcium 10.5 mg/dl (8.4-10.2); Carbon Dioxide 22 mmol/L (22.0-30.0); Chloride 103 mmol/L (98-107); Cholesterol 196 mg/dl (140-200); Estimated Glomerular Filt Rate 57 ml/min (>60); GFR (African American) 69 ML/MIN (>60); Globulin 2.5 g/dL (1.3-3.2); Glucose 73 mg/dl (74-100); Phosphorous 2.8 mg/dl (2.5-4.5); Potassium 4.8 mmoL/L (3.5-5.1); Sodium 139 mmol/L (136-145); Total Protein,Serum 7.3 g/dl (6.3-8.2); Triglycerides 168 mg/dl (30-150); VLDL Cholesterol 34 mg/dL (0-40)
[2022-08-15 15:58] LABS: Intact Parathyroid Hormone 106.3 pg/mL (7.5-53.5)
[2022-08-15 15:59] LABS: Direct LDL Cholesterol 56.47 mg/dL (100-129)
[2022-08-15 16:00] LABS: Chol/HDL Ratio 1.8 (1-3.5); HDL Cholesterol 112 mg/dl (40-60)
== END ==
PROVIDERS: PCP Internal Medicine; Visit Provider Internal Medicine
DX: I95.9 Hypotension, unspecified (principal); D64.9 Anemia, unspecified; E21.0 Primary hyperparathyroidism; E78.5 Hyperlipidemia, unspecified; N39.0 Urinary tract infection, site not specified; Z87.442 Personal history of urinary calculi
CPT/HCPCS: 80053; 80061; 83970; 84100; 85025

== ENCOUNTER → 2022-09-08 09:27 | Outpatient (CLI) | payer OTHER, SELFPAY ==
--- NOTE | 2022-09-08 09:31 | XR_ITS ---
FINAL REPORT CLINICAL HISTORY: shoulder pain per patient fluid on top of shoulder going into neck feels a pop sometimes when moving shoulder FINDINGS: RIGHT SHOULDER Three views demonstrate no acute fracture or dislocation. The visualized joint spaces are normally aligned. The soft tissues are unremarkable. IMPRESSION: No acute process. Reviewed, Interpreted and Dictated by Wander Watts MD Transcribed by Marisol Mota Authenticated and . [facility]
== END ==
PROVIDERS: PCP Internal Medicine; Visit Provider Orthopaedic Surgery
DX: M25.511 Pain in right shoulder (principal)
CPT/HCPCS: 73030

== ENCOUNTER 2022-12-26 10:00 | Outpatient (RCR) | payer OTHER, SELFPAY | END 2023-01-26 16:50 | disposition home or self-care (01) | LOC: PT 10:00 | PROVIDERS: Visit Provider Orthopaedic Surgery Adult Reconstructive Orthopaedic Surgery | DX: M25.511 Pain in right shoulder (principal) | CPT/HCPCS: 97110; 97163 ==

== ENCOUNTER → 2023-02-08 13:25 | Outpatient (CLI) | payer OTHER, SELFPAY ==
[2023-02-08 15:52] LABS: Alanine Aminotransferase 20 U/L (12-78); Albumin Level 4.7 g/dl (3.5-5.0); Albumin/Globulin Ratio 1.8 (1.1-1.8); Alkaline Phosphatase 92 U/L (38-126); Anion Gap 17.2 mEq/L (5-15); Aspartate Amino Transferase 26 U/L (14-36); Bilirubin,Total 0.3 mg/dl (0.2-1.3); Blood Urea Nitrogen 21 mg/dl (7-17); Calcium 10.6 mg/dl (8.4-10.2); Carbon Dioxide 21 mmol/L (22.0-30.0); Chloride 106 mmol/L (98-107); Cholesterol 200 mg/dl (140-200); Estimated Glomerular Filt Rate 64 ml/min (>60); GFR (African American) 78 ML/MIN (>60); Globulin 2.6 g/dL (1.3-3.2); Glucose 80 mg/dl (74-100); Potassium 4.2 mmoL/L (3.5-5.1); Sodium 140 mmol/L (136-145); Total Protein,Serum 7.3 g/dl (6.3-8.2); Triglycerides 148 mg/dl (30-150); VLDL Cholesterol 30 mg/dL (0-40)
[2023-02-08 16:01] LABS: HDL Cholesterol 94 mg/dl (40-60)
[2023-02-08 16:03] LABS: Direct LDL Cholesterol 72.52 mg/dL (100-129); Intact Parathyroid Hormone 103.7 pg/mL (7.5-53.5)
== END ==
PROVIDERS: PCP Internal Medicine; Visit Provider Internal Medicine
DX: E21.3 Hyperparathyroidism, unspecified (principal); E78.5 Hyperlipidemia, unspecified; E16.2 Hypoglycemia, unspecified; E53.8 Deficiency of other specified B group vitamins; N19 Unspecified kidney failure
CPT/HCPCS: 80053; 80061; 83970

== ENCOUNTER → 2023-03-15 15:16 | Outpatient (CLI) | payer OTHER, SELFPAY ==
--- NOTE | 2023-03-15 15:24 | MM_ITS ---
PROCEDURE INFORMATION: Exam: MG Bilateral Screening 3D Mammography Exam date and time: 03/15/2023 3:20 PM Age: 58 years old Clinical indication: Screening examination TECHNIQUE: Imaging protocol: Bilateral Screening tomosynthesis and 2D mammography including computer-aided detection (CAD) when performed. COMPARISON: None FINDINGS: MAMMOGRAPHY: Breast composition: There are scattered areas of fibroglandular density. Mass: None. Architectural distortion: None. Calcifications: No suspicious calcifications. Asymmetric density: None. Skin thickening: None. Axillary adenopathy: None. IMPRESSION: No mammographic evidence of malignancy. Annual screening is recommended unless otherwise clinically indicated. ASSESSMENT: BI-RADS Category 1: Negative
== END ==
PROVIDERS: PCP Internal Medicine; Visit Provider Internal Medicine
DX: Z12.31 Encounter for screening mammogram for malignant neoplasm of breast (principal)
CPT/HCPCS: 77063; 77067

== ENCOUNTER → 2023-03-20 19:24 | Outpatient (CLI) | payer OTHER, SELFPAY ==
[2023-03-20 20:06] LABS: Microscopic, Urine URINE MICROSCOPIC (MICROSCOPIC)
[2023-03-20 22:09] LABS: Appearance,Urine CLEAR (Clear); Bilirubin,Urine Negative (Negative); Blood, Urine Negative (Negative); Color,Urine YELLOW (Yellow); Glucose,Urine (UA) Negative (Negative); Ketones,Urine Negative (Negative); Leukocyte Esterase,Urine 2+ (Negative); Nitrate,Urine Negative (Negative); PH,Urine 6.5 (5.0-8.5); Protein,Urine Negative (Negative); Specific Gravity, Urine 1.015 (1.005-1.030); Urobilinogen,Urine 0.2 EU/dl (0.2)
[2023-03-20 22:36] LABS: Squamous Epithelial Cell,Urine Occasional #/hpf (0-5)
== END ==
PROVIDERS: PCP Internal Medicine; Visit Provider Internal Medicine
DX: N39.0 Urinary tract infection, site not specified (principal); B96.29 Other Escherichia coli [E. coli] as the cause of diseases classified elsewhere
CPT/HCPCS: 81001; 87086

== ENCOUNTER 2023-04-26 16:33 | Outpatient (CLI) | payer OTHER, SELFPAY | END 2023-04-26 23:59 | LOC: LAB.DROPOF 16:33 | PROVIDERS: PCP Internal Medicine; Visit Provider Internal Medicine | DX: N39.0 Urinary tract infection, site not specified (principal); B96.29 Other Escherichia coli [E. coli] as the cause of diseases classified elsewhere | CPT/HCPCS: 87086 ==

== ENCOUNTER 2023-07-10 15:33 | Outpatient (CLI) | payer OTHER, SELFPAY ==
[2023-07-19 16:14] LABS: Candida glabrata Negative (Negative); HSV 1 NAA Negative (Negative); HSV 2 NAA Negative (Negative)
== END 2023-07-10 23:59 ==
LOC: LAB.DROPOF 15:33
PROVIDERS: PCP Urology; Visit Provider Urology
DX: N12 Tubulo-interstitial nephritis, not specified as acute or chronic (principal)
CPT/HCPCS: 87491; 87529; 87563; 87591; 87661; 87798; 87801

== ENCOUNTER 2023-08-11 14:00 | Outpatient (RCR) | payer OTHER, SELFPAY | END 2023-08-11 15:30 | disposition home or self-care (01) | LOC: PT 14:00 | PROVIDERS: Visit Provider Orthopaedic Surgery | DX: M54.2 Cervicalgia (principal) | CPT/HCPCS: 97010; 97014; 97035; 97110; 97140; 97163; 97530; G0283 ==

== ENCOUNTER 2023-08-21 17:47 | Outpatient (CLI) | payer OTHER, SELFPAY ==
[2023-08-21 19:05] LABS: Basophils # 0.1 K/mm3 (0-0.2); Basophils % 1.8 % (0.1-2.0); Eosinophils # 0.1 K/mm3 (0.0-0.4); Eosinophils % 1.8 % (0.1-12.0); Hematocrit 43.2 % (37.0-47.0); Hemoglobin 13.6 g/dL (12.2-16.2); Lymphocytes % 35.8 % (10-50); Mean Corpuscular HGB Conc 31.5 g/dL (31.8-35.4); Mean Corpuscular Hemoglobin 30.1 pg (27.0-31.2); Mean Corpuscular Volume 95.7 fl (81-99); Mean Platelet Volume 8.9 fl (7.4-10.4); Monocytes # 0.4 K/mm3 (0.1-1.0); Monocytes % 6.8 % (1.7-9.3); Neutrophils % 53.8 % (37.0-80.0); Platelet Count 331 K/mm3 (142-424); Red Blood Count 4.51 M/mm3 (4.20-5.40); Red Cell Distribution Width 14.9 % (11.5-17.5); White Blood Count 5.6 K/mm3 (4.8-10.8)
[2023-08-21 19:41] LABS: Alanine Aminotransferase 12 U/L (12-78); Albumin Level 4.5 g/dl (3.5-5.0); Albumin/Globulin Ratio 1.8 (1.1-1.8); Alkaline Phosphatase 119 U/L (38-126); Anion Gap 13.9 mEq/L (5-15); Aspartate Amino Transferase 22 U/L (14-36); Bilirubin,Total 0.5 mg/dl (0.2-1.3); Blood Urea Nitrogen 22 mg/dl (7-17); Calcium 10.9 mg/dl (8.4-10.2); Carbon Dioxide 25 mmol/L (22.0-30.0); Chloride 105 mmol/L (98-107); Chol/HDL Ratio 1.9 (1-3.5); Cholesterol 198 mg/dl (140-200); Estimated Glomerular Filt Rate 64 ml/min (>60); GFR (African American) 78 ML/MIN (>60); Globulin 2.5 g/dL (1.3-3.2); Glucose 73 mg/dl (74-100); HDL Cholesterol 103 mg/dl (40-60); Potassium 4.9 mmoL/L (3.5-5.1); Sodium 139 mmol/L (136-145); Triglycerides 109 mg/dl (30-150); VLDL Cholesterol 22 mg/dL (0-40)
[2023-08-21 19:52] LABS: Direct LDL Cholesterol 75.62 mg/dL (100-129); Intact Parathyroid Hormone 70.2 pg/mL (7.5-53.5)
== END 2023-08-21 23:59 | disposition home or self-care (01) ==
PROVIDERS: PCP Internal Medicine; Visit Provider Internal Medicine
DX: I95.9 Hypotension, unspecified (principal); E78.5 Hyperlipidemia, unspecified; E53.8 Deficiency of other specified B group vitamins; E21.3 Hyperparathyroidism, unspecified; N39.0 Urinary tract infection, site not specified; Z87.442 Personal history of urinary calculi
CPT/HCPCS: 80053; 80061; 83970; 85025

== ENCOUNTER 2023-09-18 16:44 | Outpatient (CLI) | payer OTHER, SELFPAY ==
[2023-09-18 13:33] LABS: Basophils # 0.1 K/mm3 (0-0.2); Basophils % 1.3 % (0.1-2.0); Eosinophils # 0.1 K/mm3 (0.0-0.4); Eosinophils % 1.7 % (0.1-12.0); Hematocrit 44.1 % (37.0-47.0); Lymphocytes # 1.8 K/mm3 (0.7-4.5); Lymphocytes % 33.4 % (10-50); Mean Corpuscular HGB Conc 31.7 g/dL (31.8-35.4); Mean Corpuscular Hemoglobin 30.4 pg (27.0-31.2); Mean Corpuscular Volume 95.8 fl (81-99); Mean Platelet Volume 8.2 fl (7.4-10.4); Monocytes # 0.4 K/mm3 (0.1-1.0); Monocytes % 7.5 % (1.7-9.3); Neutrophils % 56.1 % (37.0-80.0); Platelet Count 327 K/mm3 (142-424); Red Blood Count 4.61 M/mm3 (4.20-5.40); Red Cell Distribution Width 14.7 % (11.5-17.5); White Blood Count 5.3 K/mm3 (4.8-10.8)
[2023-09-18 13:53] LABS: Alanine Aminotransferase 16 U/L (12-78); Albumin Level 4.8 g/dl (3.5-5.0); Albumin/Globulin Ratio 1.8 (1.1-1.8); Alkaline Phosphatase 119 U/L (38-126); Anion Gap 15.4 mEq/L (5-15); Aspartate Amino Transferase 26 U/L (14-36); Bilirubin,Total 0.6 mg/dl (0.2-1.3); Blood Urea Nitrogen 24 mg/dl (7-17); Calcium 11.3 mg/dl (8.4-10.2); Carbon Dioxide 25 mmol/L (22.0-30.0); Chloride 105 mmol/L (98-107); Estimated Glomerular Filt Rate 64 ml/min (>60); GFR (African American) 78 ML/MIN (>60); Globulin 2.7 g/dL (1.3-3.2); Glucose 77 mg/dl (74-100); Potassium 4.4 mmoL/L (3.5-5.1); Sodium 141 mmol/L (136-145); Total Protein,Serum 7.5 g/dl (6.3-8.2)
[2023-09-18 14:11] LABS: Free T4 (Free Thyroxine) 1.31 ng/dl (0.78-2.19)
[2023-09-18 14:24] LABS: Thyroid Stimulating Hormone 0.48 uIU/mL (0.465-4.68)
== END 2023-09-18 23:59 | disposition home or self-care (01) ==
LOC: LAB.DROPOF 16:44
PROVIDERS: PCP Internal Medicine; Visit Provider Internal Medicine
DX: R55 Syncope and collapse (principal)
CPT/HCPCS: 36415; 80050; 80053; 84439; 84443; 85025

== ENCOUNTER 2023-10-11 14:46 | Outpatient (CLI) | payer OTHER, SELFPAY ==
[2023-10-11 14:49] LABS: Adenovirus F 40/41, stool Not Detected (NotDetected); Astrovirus Not Detected (NotDetected); Campylobacter Not Detected (NotDetected); Cryptosporidium Not Detected (NotDetected); Cyclospora Cayetanesis Not Detected (NotDetected); Entamoeba histolytica Not Detected (NotDetected); Enteroaggregative E coli Not Detected (NotDetected); Enteropathogenic E coli Not Detected (NotDetected); Enterotoxigenic E coli Not Detected (NotDetected); Giardia lamblia Not Detected (NotDetected); Norovirus Not Detected (NotDetected); Plesimonas Shigalloides, PCR Not Detected (NotDetected); Rotavirus A Not Detected (NotDetected); Salmonella, PCR Not Detected (NotDetected); Sapovirus Not Detected (NotDetected); Shiga-like toxin E coli Not Detected (NotDetected); Shigella Enterovasive E coli Not Detected (NotDetected); Vibrio Cholerae Not Detected (NotDetected); Vibrio, PCR Not Detected (NotDetected); Yersinia Entercolitica, PCR Not Detected (NotDetected)
[2023-10-11 19:46] LABS: Anion Gap 17.4 mEq/L (5-15); Blood Urea Nitrogen 20 mg/dl (7-17); Calcium 10.4 mg/dl (8.4-10.2); Carbon Dioxide 20 mmol/L (22.0-30.0); Chloride 108 mmol/L (98-107); Estimated Glomerular Filt Rate 64 ml/min (>60); GFR (African American) 78 ML/MIN (>60); Glucose 74 mg/dl (74-100); Potassium 4.4 mmoL/L (3.5-5.1); Sodium 141 mmol/L (136-145)
[2023-10-13 18:01] LABS: Clostridium Difficile A/B, PCR Detected (NotDetected)
== END 2023-10-11 23:59 | disposition home or self-care (01) ==
LOC: LAB.DROPOF 14:47
PROVIDERS: PCP Internal Medicine; Visit Provider Internal Medicine
DX: K52.9 Noninfective gastroenteritis and colitis, unspecified (principal); E83.52 Hypercalcemia; E86.0 Dehydration
CPT/HCPCS: 80048; 87506

== ENCOUNTER 2024-01-01 15:54 | Outpatient (CLI) | payer OTHER, SELFPAY | END 2024-01-01 23:59 | disposition home or self-care (01) | LOC: LAB.DROPOF 15:54 | PROVIDERS: PCP Internal Medicine; Visit Provider Internal Medicine | DX: N39.0 Urinary tract infection, site not specified (principal) | CPT/HCPCS: 87086; 87088; 87186 ==

== ENCOUNTER 2024-01-09 11:25 | Outpatient (CLI) | payer OTHER, SELFPAY ==
[2024-01-09 17:23] LABS: Alanine Aminotransferase 17 U/L (12-78); Albumin Level 4.6 g/dl (3.5-5.0); Albumin/Globulin Ratio 1.9 (1.1-1.8); Alkaline Phosphatase 105 U/L (38-126); Anion Gap 10.5 mEq/L (5-15); Aspartate Amino Transferase 23 U/L (14-36); Bilirubin,Total 0.5 mg/dl (0.2-1.3); Blood Urea Nitrogen 24 mg/dl (7-17); Calcium 10.8 mg/dl (8.4-10.2); Carbon Dioxide 24 mmol/L (22.0-30.0); Chloride 110 mmol/L (98-107); Estimated Glomerular Filt Rate 64 ml/min (>60); GFR (African American) 78 ML/MIN (>60); Globulin 2.4 g/dL (1.3-3.2); Glucose 61 mg/dl (74-100); Potassium 4.5 mmoL/L (3.5-5.1); Sodium 140 mmol/L (136-145)
[2024-01-09 17:34] LABS: Intact Parathyroid Hormone 103.8 pg/mL (7.5-53.5)
[2024-01-29 02:09] LABS: 1,25 Dihydroxy Vitamin D 61 pg/mL (.); 1,25-Dihydroxy, Vitamin D-2 <10 pg/mL (.); 1,25-Dihydroxy, Vitamin D-3 61 pg/mL (.)
== END 2024-01-09 23:59 | disposition home or self-care (01) ==
LOC: LAB.DROPOF 01-10 10:14
PROVIDERS: PCP Internal Medicine; Visit Provider Internal Medicine
DX: E83.52 Hypercalcemia (principal); E86.0 Dehydration; N39.0 Urinary tract infection, site not specified
CPT/HCPCS: 80053; 82652; 83970; 87086; 87088; 87186

== ENCOUNTER 2024-01-17 09:00 | Outpatient (RCR) | payer OTHER, SELFPAY | END 2024-01-23 16:54 | disposition home or self-care (01) | LOC: PT 09:00 | PROVIDERS: Visit Provider Orthopaedic Surgery | DX: M50.30 Other cervical disc degeneration, unspecified cervical region (principal) | CPT/HCPCS: 20560; 97110; 97140; 97163; 97530 ==

== ENCOUNTER 2024-03-11 11:20 | Outpatient (CLI) | payer OTHER, SELFPAY ==
[2024-03-11 18:13] LABS: Albumin Level 4.1 g/dl (3.5-5.0); Chloride 112 mmol/L (98-107); Potassium 4.3 mmoL/L (3.5-5.1); Sodium 140 mmol/L (136-145)
[2024-03-11 18:16] LABS: Alanine Aminotransferase 15 U/L (12-78); Alkaline Phosphatase 108 U/L (38-126); Anion Gap 14.3 mEq/L (5-15); Aspartate Amino Transferase 24 U/L (14-36); Bilirubin,Total 0.5 mg/dl (0.2-1.3); Blood Urea Nitrogen 21 mg/dl (7-17); Calcium 9.8 mg/dl (8.4-10.2); Carbon Dioxide 18 mmol/L (22.0-30.0); Estimated Glomerular Filt Rate 64 ml/min (>60); GFR (African American) 77 ML/MIN (>60); Globulin 2.1 g/dL (1.3-3.2); Glucose 77 mg/dl (74-100); Total Protein,Serum 6.2 g/dl (6.3-8.2)
[2024-03-11 19:26] LABS: Intact Parathyroid Hormone 183.3 pg/mL (7.5-53.5)
== END 2024-03-11 23:59 | disposition home or self-care (01) ==
LOC: LAB.DROPOF 03-12 11:54
PROVIDERS: PCP Internal Medicine; Visit Provider Internal Medicine
DX: G90.01 Carotid sinus syncope (principal); E83.52 Hypercalcemia; M81.0 Age-related osteoporosis without current pathological fracture
CPT/HCPCS: 80053; 83970

== ENCOUNTER 2024-03-22 07:25 | Outpatient (CLI) | payer OTHER, SELFPAY ==
--- NOTE | 2024-03-22 07:26 | MM_ITS ---
PROCEDURE INFORMATION: Exam: MG Bilateral Screening 3D Mammography Exam date and time: 03/22/2024 7:54 AM Age: 59 years old Clinical indication: Screening examination TECHNIQUE: Imaging protocol: Bilateral Screening tomosynthesis and 2D mammography including computer-aided detection (CAD) when performed. COMPARISON: 1. MG MM DIG SCREENING MAMM BI W/CAD 03/15/2023 3:20 PM 2. MG SCREEN MAMMO W CAD BILAT 07/08/2021 6:41 AM FINDINGS: MAMMOGRAPHY: Breast composition: There are scattered areas of fibroglandular density. Mass: 0.6 cm questioned mass left breast roughly 12 o'clock 2 cm from nipple anterior depth. Architectural distortion: None. Calcifications: No suspicious calcifications. Asymmetric density: None. Skin thickening: None. Axillary adenopathy: None. IMPRESSION: Questioned left breast mass.Recommend left breast diagnostic mammogram including spot compression views of the left breast in the CC and MLO projections, a full 90 degree lateral view, and left breast ultrasound for further evaluation. ASSESSMENT: BI-RADS Category 0: Incomplete- Need Additional Imaging Evaluation.
--- NOTE | 2024-03-22 07:28 | CT_ITS ---
FINAL REPORT CLINICAL HISTORY: RADICULOPATHY COMPARISON: None FINDINGS: Axial CT images of the cervical spine were obtained without contrast. Sagittal and coronal reformatted images were also obtained. This study was performed with techniques to keep radiation doses as low as reasonably achievable (ALARA). Individualized dose reduction techniques using automated exposure control or adjustment of mA and/or kV according to the patient's size were employed. There is no evidence of fracture or dislocation. The bony alignment is normal. Mild and moderate degenerative change is present. No paraspinous soft tissue abnormality is seen. Limited images of the upper thorax are unremarkable. C 2-3: Facet osteoarthropathy is present without evidence of canal stenosis or significant neural foraminal narrowing. C3-4: Disc osteophyte complexes present with mild right neural foraminal narrowing. C4-5: Disc osteophyte complexes present with mild right neural foraminal narrowing and mild canal stenosis, with an AP canal diameter of 9 mm. C5-6: Disc osteophyte complexes present with mild bilateral neural foraminal narrowing and mild canal stenosis with an AP canal diameter of 9 mm. C6-7: Mild right and moderate left neural foraminal narrowing. C7-T1: No evidence of significant canal stenosis or neural foraminal narrowing. IMPRESSION: Multilevel degenerative change as described above, without acute bony abnormality. Reviewed, Interpreted and Dictated by Marcelino Self III, MD Transcribed by Vaishali Pizano Authenticated and [facility]
== END 2024-03-22 23:59 | disposition home or self-care (01) ==
LOC: RAD 07:26
PROVIDERS: PCP Internal Medicine; Visit Provider Orthopaedic Surgery
DX: Z12.31 Encounter for screening mammogram for malignant neoplasm of breast (principal); M54.12 Radiculopathy, cervical region
CPT/HCPCS: 72125; 77063; 77067

== ENCOUNTER 2024-05-14 09:48 | Outpatient (CLI) | payer OTHER, SELFPAY ==
--- NOTE | 2024-05-14 09:48 | MM_ITS ---
PROCEDURE INFORMATION: Exam: US Left Breast, Complete MG Left Diagnostic Breast Tomosynthesis Exam date and time: 05/14/2024 10:23 AM Age: 59 years old Clinical indication: Recall on the basis of screening mammogram 03/22/2024 for further evaluation of 0.6 cm questioned mass left breast roughly 12 o'clock 2 cm from nipple anterior depth. TECHNIQUE: Imaging protocol: Complete ultrasound of all four quadrants of the left breast and the retroareolar regions, including ultrasound of the axilla when performed. Left Diagnostic tomosynthesis and 2D mammography including computer-aided detection (CAD) when performed. Unilateral or bilateral exam. COMPARISON: MG MM DIG MAMM DX UNILAT LT CAD 05/14/2024 9:56 AM FINDINGS: MAMMOGRAPHY: Breast composition: There are scattered areas of fibroglandular density based on the most recent screening mammogram report. Breast mammogram findings: Persistent oval 0.6 cm mass in the right breast at about 12 o'clock 2 cm from the nipple anterior depth. ULTRASOUND: Breast ultrasound findings: Left sonography, all 4 quadrants, retroareolar and the axilla demonstrates at 12 o'clock 2 cm from the nipple a lobulated almost anechoic mass with thin avascular septations, measuring 0.6 x 0.3 x 0.6 cm, likely a complicated cluster of cysts, corresponding with mammographic mass. There is a minimal adjacent dilated duct with no related debris. Sonographically unremarkable axillary lymph node. IMPRESSION: Screening detected mass corresponds to a probably benign avascular complicated cluster of cysts at 12 o'clock, suggest six-month follow-up right diagnostic mammogram and ultrasound unless otherwise clinically indicated. ASSESSMENT: BI-RADS Category 3: Probably benign.
== END 2024-05-14 23:59 | disposition home or self-care (01) ==
LOC: RAD 09:48
PROVIDERS: PCP Internal Medicine; Visit Provider Internal Medicine
DX: R92.8 Other abnormal and inconclusive findings on diagnostic imaging of breast (principal); N39.0 Urinary tract infection, site not specified; B96.20 Unspecified Escherichia coli [E. coli] as the cause of diseases classified elsewhere
CPT/HCPCS: 76641; 77061; 77065; 87086; 87088; 87186; G0279

== ENCOUNTER 2024-06-19 12:44 | Emergency (ER) | payer OTHER, SELFPAY ==
[2024-06-19 12:49] VITALS: BP 123/80; PULSE 68; RESP 18; TEMP 36.7; O2SAT 100; BMI 21.0
--- NOTE | 2024-06-19 12:53 | XR_ITS ---
FINAL REPORT CLINICAL HISTORY: FALL FINDINGS: LEFT HAND Two views were obtained. There is no fracture or dislocation. The joint spaces appear normal. No soft tissue abnormality is identified. IMPRESSION: No acute process. Reviewed, Interpreted and Dictated by Wander Watts MD Transcribed by Telma Reed Authenticated and [facility]
--- NOTE | 2024-06-19 12:53 | XR_ITS ---
FINAL REPORT CLINICAL HISTORY: FALL FINDINGS: LEFT FOREARM Two views were obtained. There is no fracture or dislocation. The joint spaces appear normal. No soft tissue abnormality is identified. IMPRESSION: No acute process. Reviewed, Interpreted and Dictated by Wander Watts MD Transcribed by Telma Reed Authenticated and . [facility]
--- NOTE | 2024-06-19 12:53 | XR_ITS ---
FINAL REPORT CLINICAL HISTORY: FALL FINDINGS: LEFT HUMERUS Two views were obtained. There is no fracture or dislocation. The joint spaces appear normal. No soft tissue abnormality is identified. IMPRESSION: No acute process. Reviewed, Interpreted and Dictated by Wander Watts MD Transcribed by Telma Reed Authenticated and [facility]
--- NOTE | 2024-06-19 12:53 | XR_ITS ---
FINAL REPORT CLINICAL HISTORY: FALL FINDINGS: LEFT SHOULDER Three views were obtained. There is no fracture or dislocation. The joint spaces appear normal. No soft tissue abnormality is identified. Left-sided pacemaker is identified. IMPRESSION: No acute process. Reviewed, Interpreted and Dictated by Wander Watts MD Transcribed by Telma Reed Authenticated and [facility]
--- NOTE | 2024-06-19 12:53 | XR_ITS ---
FINAL REPORT CLINICAL HISTORY: FALL FINDINGS: LEFT ELBOW Three views were obtained. No true lateral view was obtained. There is no fracture or dislocation. The joint spaces appear normal. No soft tissue abnormality is identified. IMPRESSION: No acute process. Reviewed, Interpreted and Dictated by Wander Watts MD Transcribed by Telma Reed Authenticated and [facility]
--- NOTE | 2024-06-19 13:01 | PC.NURSE ---
xray at bedside
--- NOTE | 2024-06-19 13:32 | ED_ITS ---
Discharge Plan Disposition Patient Disposition: Home, Self-Care Condition: Good Prescriptions Prescriptions: No Action nitrofurantoin monohyd/m-cryst [Macrobid] 100 mg capsule 100 mg PO BID Qty: 20 0RF Rx Instructions: must administer with a meal/food ondansetron 4 mg tablet,disintegrating 4 mg PO Q8H PRN (Reason: nausea and vomiting) Qty: 30 0RF midodrine 5 mg tablet 5 mg PO .Every 4 to 6 hours PRN (Reason: BP) Qty: 100 1RF albuterol sulfate 90 mcg/actuation HFA aerosol inhaler 1 inh inhalation Q6H Qty: 8.5 3RF alendronate 70 mg tablet 70 mg PO WEEKLY Qty: 12 1RF aspirin 81 mg tablet,chewable 81 mg PO DAILY Qty: 90 1RF azelastine 137 mcg (0.1 %) spray,non-aerosol 1 spray intranasal BID PRN (Reason: nasal congestion) Qty: 30 5RF bupropion HCl 100 mg tablet sustained-release 12 hr 100 mg PO BID Qty: 180 1RF cetirizine 10 mg tablet 10 mg PO DAILY Qty: 90 1RF omeprazole 40 mg capsule,delayed release(DR/EC) 40 mg PO DAILY Qty: 90 1RF meloxicam 7.5 mg tablet 7.5 mg PO DAILY PRN (Reason: Pain/arthritis) Qty: 90 1RF loperamide 2 mg capsule See Rx Instructions .ROUTE .COMPLEX Qty: 30 1RF Dose Instruction: TAKE 1 CAPSULE BY MOUTH EVERY 4 HOURS NEEDED FOR LOOSE STOOL. ADMINISTER AFTER EACH LOOSE STOOL UNTIL SYMPTOMS CONTROLLED; DO NOT EXCEED 4 CAPS PER 24 HOURS Rx Instructions: TAKE 1 CAPSULE BY MOUTH EVERY 4 HOURS NEEDED FOR LOOSE STOOL. ADMINISTER AFTER EACH LOOSE STOOL UNTIL SYMPTOMS CONTROLLED; DO NOT EXCEED 4 CAPS PER 24 HOURS Referrals Follow up/Referrals: Honorio Mackey MD [Primary Care Provider] - See instructions Jay Roth DO [Staff Physician] - See instructions Activity Restrictions/Add. Instructions Additional Instructions/Restrictions: Follow-up with orthopedic provider and family doctor in the upcoming days. Return to the emergency department with any worsening signs or symptoms, utilize ice ibuprofen Tylenol and other anti-inflammatory medications for pain. Utilize splint/brace as needed. Clinical Impressions Clinical Impression: Left wrist sprain Instructions Patient Instructions: DI for Wrist Strain Print Language Print Language: Ukrainian Discharge ED Provider: Bryant Correa General Adult HPI <NELE Swain - Last Filed: 06/19/24 14:43> General Chief complaint: Extremity Injury, Upper Stated complaint: AO-06/19/24 1200- Pain in L Arm Time Seen by Provider: 06/19/24 12:56 Mode of Arrival: Ambulatory Source of Information: Patient Description of Symptoms (Recalled from ER Triage Doc. by RN): FALL ON TO LEFT SIDE FROM LAST STEP, REPORTS LEFT ARM PAIN FROM ELBOW TO HAND. History of Present Illness HPI narrative: 59-year-old female presents to the emergency department accompanied by her spouse for what sounds like a mechanical fall, and a fall on an outstretched hand complaining of left upper extremity/arm pain. Patient states this morning approximately 11:30 AM she was going outside to take out the trash . When she describes a slip and fall at the bottom step . She fell on outstretched arm injuring her left wrist/arm, complains of maximal pain around the left wrist/hand, she denies any fever chills chest pain shortness of breath denies any LOC, denies striking the head, she not on any anticoagulation therapy. Denies any presyncopal or syncopal event, no lightheadedness no dizziness no chest pain no shortness of breath, no abdominal pain nausea vomiting constipation diarrhea no urinary type symptomatology's, no lower extremity or right upper extremity pain, denies any neck pain mid thoracic back pain or lower back pain, denies any real upper or lower extremity weakness, denies any numbness or tingling, does have some pain limiting range of motion of the left upper extremity most localized to the wrist/hand. Other past medical history consistent with prior bilateral hip surgeries, right rotator cuff repair, current cardiac pacemaker implantation, osteoporosis, hyperparathyroidism, B12 deficiency. Denies any history of substance use/abuse, initial triage vitals grossly unremarkable. Onset (ago): hour(s) Related Data Previous Rx's ?Medication ?Instructions ?Recorded midodrine 5 mg tablet 5 mg PO .Every 4 to 6 hours PRN BP 01/09/24 #100 tabs albuterol sulfate 90 mcg/actuation 1 inh inhalation Q6H #8.5 grams 04/24/24 aerosol inhaler alendronate 70 mg tablet 70 mg PO WEEKLY For bones #12 tabs 04/24/24 aspirin 81 mg chewable tablet 81 mg PO DAILY preventative #90 04/24/24 tabs azelastine 137 mcg (0.1 %) nasal 1 spray intranasal BID PRN nasal 04/24/24 spray congestion #30 mL bupropion HCl 100 mg tablet,12 hr 100 mg PO BID mood #180 ea 04/24/24 sustained-release cetirizine 10 mg tablet 10 mg PO DAILY Allergy symptoms 04/24/24 #90 tabs loperamide 2 mg capsule See Rx Instructions .Route 04/24/24 .COMPLEX #30 caps meloxicam 7.5 mg tablet 7.5 mg PO DAILY PRN Pain/arthritis 04/24/24 #90 tabs omeprazole 40 mg capsule,delayed 40 mg PO DAILY #90 caps 04/24/24 release nitrofurantoin 100 mg PO BID #20 caps 05/14/24 monohydrate/macrocrystals 100 mg capsule (Macrobid) ondansetron 4 mg disintegrating 4 mg PO Q8H PRN nausea and 05/22/24 tablet vomiting #30 tabs Allergies Allergy/AdvReac Type Severity Reaction Status Date / Time amitriptyline (From Elavil) Allergy Intermediate PASS OUT Verified 05/14/24 11:14 acetaminophen (From Percocet) Allergy Mild I-ITCHING Verified 05/14/24 11:14 hydrocodone (From Lortab) Allergy Mild I-ITCHING Verified 05/14/24 11:14 ketorolac (From Toradol) Allergy Mild I-ITCHING Verified 05/14/24 11:14 sulfamethoxazole (From Allergy Mild I-ITCHING Verified 05/14/24 11:14 Bactrim) trimethoprim (From Bactrim) Allergy Mild I-ITCHING Verified 05/14/24 11:14 butorphanol (From STADOL) Allergy Unknown Verified 05/14/24 11:14 ciprofloxacin (CIPROFLOXACIN) Allergy Unknown Verified 05/14/24 11:14 methadone (METHADONE) Allergy Unknown Verified 05/14/24 11:14 morphine (MORPHINE) Allergy Unknown Verified 05/14/24 11:14 oxycodone (OXYCODONE) Allergy Unknown BLISTERS Verified 05/14/24 11:14 IN MOUTH sumatriptan (From IMITREX) Allergy Unknown MAKES ME Verified 05/14/24 11:14 PASS OUT tramadol (From ULTRAM) Allergy Unknown Verified 05/14/24 11:14 Amitriptyline Allergy Unknown Other Uncoded 03/11/24 11:50 AMPICILLIN Allergy Unknown BLISTERS Uncoded 03/11/24 11:50 ON TONGUE TAKES KEFLEX OK SULFA (SULFONAMIDE) Allergy Unknown BLISTERS Uncoded 03/11/24 11:50 ON TONGUE PFSH <NEEL Swain - Last Filed: 06/19/24 14:43> PFS Disclaimer: The information contained in this section may have been updated after the patient was seen, as this information can be updated by other users. Medical History Hyperparathyroidism Social History Smoking Status: Never smoker alcohol intake: never current occupational status: unemployed Travel in the last 8 weeks: None housing: house current occupational exposures/hazards: No caffeine: Yes Have you lived/traveled outside [place] in past 30 days?: No Contact w/someone who lives/traveled outside US past 30 days?: No Exposure to someone with infectious disease in past 14 days?: No Do you have a fever (greater than 100.4 F or 38 C)?: No Have you tested positive for COVID-19: No Exposed to someone with COVID-19 in past 14 days?: No Do you have a sore throat?: No Do you have a cough?: No Do you have any weakness?: No Do you have any diarrhea?: No Are you experiencing any unusual bleeding?: No Do you have any muscle aches/pain?: No Do you have any abdominal pain?: No Are you experiencing loss of taste or smell?: No Other Medical History Have you received the Flu Vaccine for this season: No Have you received the Pneumonia Vaccine: Yes <NEEL Swain - Last Filed: 06/19/24 14:43> ROS Obtained: Yes All systems reviewed & no additional complaints except as documented Physical Exam <NEEL Swain - Last Filed: 06/19/24 14:43> General General appearance: alert and in no apparent distress Head Head exam: atraumatic and normocephalic Eye Eye exam: Present PERRL and EOMI ENT ENT exam: Present mucous membranes moist Neck Neck exam: Present normal inspection Chest Chest inspection: Present normal inspection and symmetric chest wall rise Respiratory Respiratory exam: Present normal lung sounds bilaterally; Absent respiratory distress Cardiovascular Cardiovascular exam: Present regular rate and normal rhythm Abdominal Exam Abdominal exam: Present soft; Absent tenderness Extremities Exam Extremities exam: Present normal inspection, tenderness, normal capillary refill and other (Some pain to palpation to the left dorsal wrist, patient has good finger opposition, some decreased range of motion in the left upper extremity, otherwise neurovascular intact, some mild pain to the forearm, negative pain to palpation to the elbow, or shoulder joint on the left.); Absent full ROM, edema or joint swelling Back Exam Back exam: Present normal inspection and full ROM; Absent tenderness, paraspinal tenderness or vertebral tenderness Neurological Exam Neurological exam: Present alert and oriented X3 Psychiatric Psychiatric exam: Present normal affect Skin Skin exam: Present warm and dry Medical Decision Making <NEEL Swain - Last Filed: 06/19/24 14:43> Medical Records Medical records reviewed: Yes I reviewed the patient's medical records. Screening: Per USPSTF and CDC recommendations, given the prevalence of disease in our region, it is our hospital?s policy to screen for HIV and viral Hepatitis for all patients aged 18 and over and those with ongoing risk factors. Kana Inquiry Pt receiving controlled substance: No Kana was queried for this patient: No Vital Signs: 06/19/24 12:49 06/19/24 15:00 Temperature 98.0 F 98.2 F Temperature Source Oral Pulse Rate 66 Pulse Rate [Radial] 68 Respiratory Rate 18 20 Blood Pressure 137/73 Blood Pressure [Right Arm] 123/80 Blood Pressure Mean [Right Arm] 94 Blood Pressure Source [Right Arm] Automatic Cuff Blood Pressure Position [Right Arm] Sitting 02 Sat by Pulse Oximetry 100 Oxygen Delivery Method Room Air Room Air Orders (Tests/Meds): ED MEDICATIONS Discontinued Medications Generic Name Dose Route Start Last Admin Trade Name Freq PRN Reason Stop Dose Admin Ibuprofen 400 mg 06/19/24 13:50 06/19/24 13:55 Ibuprofen 400 Mg Tablet PO 06/19/24 13:51 400 mg ONCE ONE Administration ORDERS Category Date Time Status XR elbow LT min 3V Stat Exams 06/19/24 12:53 Completed XR forearm LT 2V Stat Exams 06/19/24 12:53 Completed XR hand LT 2V Stat Exams 06/19/24 12:53 Completed XR humerus LT Stat Exams 06/19/24 12:53 Completed XR shoulder LT min 2V Stat Exams 06/19/24 12:53 Completed Medical Decision Narrative: 59-year-old female presents to the emergency department with a mechanical fall and left upper extremity pain, differential diagnose include but not limited to left wrist sprain/strain, left wrist fracture, metacarpal fracture, hand sprain/strain, acute shoulder impingement, shoulder fracture, shoulder sprain/strain, shoulder ligamentous injury, humeral head fracture, humeral shaft fracture. Discussed patient case with attending physician Dr. Correa Will obtain x-rays of the hand, forearm, elbow region, shoulder, and forearm region for further evaluation/characterization, will give 400 mg ibuprofen p.o. for pain I reviewed the patient's left forearm x-ray along the corresponding radiologic report no acute process. Reviewed the patient's left shoulder x-ray along the corresponding radiologic report, no acute process. I reviewed the patient's left elbow x-ray, along with corresponding radiologic report there is no acute process. I reviewed the patient's left hand, and left humerus x-rays along the corresponding radiologic report, no acute process. Examination of the patient at 2:30 PM, patient still having some pain palpation to the dorsal area of her wrist, x-rays were negative, for any acute osseous abnormality. I offered advanced imaging to include CT of the left upper extremity, denied at this time would like to pursue outpatient treatment with orthopedic provider shared decision making was utilized, patient would like to pursue bracing/splinting, will supply this for her and she will follow-up with Ortho provider in 7 to 10 days for repeat x-ray/evaluation. She will return emerged part any worsening signs or symptoms. Patient and family voiced understand agree with current treatment plan/discharge plan, offered her adequate p.o. analgesia here in the emergency department to include narcotic medication such as low-dose [place], patient denied at this time and tells me that she has medications at home for which she can take for pain. Once again strict ED return precaution were given. Patient and family voiced understanding will follow-up with providers as directed. <Bryant Correa MD - Last Filed: 06/19/24 17:01> Vital Signs: 06/19/24 12:49 06/19/24 15:00 Temperature 98.0 F 98.2 F Temperature Source Oral Pulse Rate 66 Pulse Rate [Radial] 68 Respiratory Rate 18 20 Blood Pressure 137/73 Blood Pressure [Right Arm] 123/80 Blood Pressure Mean [Right Arm] 94 Blood Pressure Source [Right Arm] Automatic Cuff Blood Pressure Position [Right Arm] Sitting 02 Sat by Pulse Oximetry 100 Oxygen Delivery Method Room Air Room Air Orders (Tests/Meds): ED MEDICATIONS Discontinued Medications Generic Name Dose Route Start Last Admin Trade Name Stanton PRN Reason Stop Dose Admin Ibuprofen 400 mg 06/19/24 13:50 06/19/24 13:55 Ibuprofen 400 Mg Tablet PO 06/19/24 13:51 400 mg ONCE ONE Administration ORDERS Category Date Time Status XR elbow LT min 3V Stat Exams 06/19/24 12:53 Completed XR forearm LT 2V Stat Exams 06/19/24 12:53 Completed XR hand LT 2V Stat Exams 06/19/24 12:53 Completed XR humerus LT Stat Exams 06/19/24 12:53 Completed XR shoulder LT min 2V Stat Exams 06/19/24 12:53 Completed Medical Decision Narrative: 59-year-old female presents to the emergency department with a mechanical fall and left upper extremity pain, differential diagnose include but not limited to left wrist sprain/strain, left wrist fracture, metacarpal fracture, hand sprai n/strain, acute shoulder impingement, shoulder fracture, shoulder sprain/strain, shoulder ligamentous injury, humeral head fracture, humeral shaft fracture. Discussed patient case with attending physician Dr. Correa Will obtain x-rays of the hand, forearm, elbow region, shoulder, and forearm region for further evaluation/characterization, will give 400 mg ibuprofen p.o. for pain I reviewed the patient's left forearm x-ray along the corresponding radiologic report no acute process. Reviewed the patient's left shoulder x-ray along the corresponding radiologic report, no acute process. I reviewed the patient's left elbow x-ray, along with corresponding radiologic report there is no acute process. I reviewed the patient's left hand, and left humerus x-rays along the corresponding radiologic report, no acute process. Examination of the patient at 2:30 PM, patient still having some pain palpation to the dorsal area of her wrist, x-rays were negative, for any acute osseous abnormality. I offered advanced imaging to include CT of the left upper extremity, denied at this time would like to pursue outpatient treatment with orthopedic provider shared decision making was utilized, patient would like to pursue bracing/splinting, will supply this for her and she will follow-up with Ortho provider in 7 to 10 days for repeat x-ray/evaluation. She will return emerged part any worsening signs or symptoms. Patient and family voiced understand agree with current treatment plan/discharge plan, offered her adequate p.o. analgesia here in the emergency department to include narcotic me dication such as low-dose [place], patient denied at this time and tells me that she has medications at home for which she can take for pain. Once again strict ED return precaution were given. Patient and family voiced understanding will follow-up with providers as directed. I was consulted by the KAELA, and we discussed the complexity of the problems being addressed. I approve the treatment and management plan for this patient's care in the emergency department, thus performing a substantive portion of the medical decision making. Bryant Correa MD Critical Care <NEEL Swain - Last Filed: 06/19/24 14:43> Critical Care Time Critical Care Time: No
[2024-06-19] MEDS: IBUPROFEN 400 MG TABLET PO (13:55)
--- NOTE | 2024-06-19 14:46 | PC.NURSE ---
Rounded on pt, no needs at this time.
[2024-06-19 15:00] VITALS: BP 137/73; PULSE 66; RESP 20; TEMP 36.8; O2SAT 98
--- NOTE | 2024-06-19 15:02 | PC.NURSE ---
left wrist velcro splint applied pms intact post application
== END 2024-06-19 15:02 | disposition home or self-care (01) ==
PROVIDERS: Emergency Provider Student in an Organized Health Care Education/Training Program; PCP Internal Medicine
DX: S63.502A Unspecified sprain of left wrist, initial encounter (principal); M79.602 Pain in left arm; W01.0XXA Fall on same level from slipping, tripping and stumbling without subsequent striking against object, initial encounter; Y93.89 Activity, other specified; Y92.008 Other place in unspecified non-institutional (private) residence as the place of occurrence of the external cause
CPT/HCPCS: 73030; 73060; 73080; 73090; 73120; 99283

== ENCOUNTER 2024-06-24 14:27 | Outpatient (CLI) | payer OTHER, SELFPAY ==
--- NOTE | 2024-06-24 14:33 | XR_ITS ---
FINAL REPORT CLINICAL HISTORY: Left Wrist Pain FINDINGS: LEFT WRIST THREE VIEW FINDINGS: Three views show no evidence of an acute, displaced fracture or dislocation of the visualized bony architecture. Bones are osteopenic. The joint spaces appear normal. IMPRESSION: Unremarkable exam. Reviewed, Interpreted and Dictated by Nitin Becerril MD Transcribed by Marisol Mota Authenticated and [facility]
== END 2024-06-24 23:59 | disposition home or self-care (01) ==
LOC: RAD 14:29
PROVIDERS: PCP Internal Medicine; Visit Provider Orthopaedic Surgery
DX: M25.532 Pain in left wrist (principal); S63.502A Unspecified sprain of left wrist, initial encounter
CPT/HCPCS: 73110

== ENCOUNTER 2024-07-01 10:50 | Outpatient (CLI) | payer OTHER, SELFPAY ==
--- NOTE | 2024-07-01 10:52 | XR_ITS ---
FINAL REPORT CLINICAL HISTORY: Left Elbow Pain COMPARISON: None FINDINGS: AP, oblique, and lateral views of the right elbow were obtained. There is no prior exam for comparison. There is no acute fracture or dislocation. Joint space is preserved. There is no joint effusion or other soft tissue abnormality. IMPRESSION: No acute osseous abnormality of the right elbow. Reviewed, Interpreted and Dictated by Christin Salas MD Transcribed by Vaishali Pizano Authenticated and [facility]
--- NOTE | 2024-07-01 11:02 | XR_ITS ---
FINAL REPORT CLINICAL HISTORY: Lt Wrist Pain COMPARISON: None FINDINGS: AP, oblique, and lateral views of the left wrist were obtained. There is no prior exam for comparison. There is no acute fracture or dislocation. The joint spaces are preserved. The soft tissues are normal. IMPRESSION: No acute osseous abnormality of the left wrist. If pain persists, MR is recommended. Reviewed, Interpreted and Dictated by Christin Salas MD Transcribed by Vaishali Pizano Authenticated and [facility]
== END 2024-07-01 23:59 | disposition home or self-care (01) ==
LOC: RAD 10:50
PROVIDERS: PCP Internal Medicine; Visit Provider Physician Assistant
DX: M25.522 Pain in left elbow (principal); S63.502A Unspecified sprain of left wrist, initial encounter
CPT/HCPCS: 73080; 73110

== ENCOUNTER 2024-07-13 11:09 | Outpatient (CLI) | payer OTHER, SELFPAY ==
[2024-07-13 13:18] LABS: Collection Time,Urine 24 hours
[2024-07-13 13:25] LABS: Creatinine,Urine Random 64 mg/dL (Not Estab.)
[2024-07-13 14:24] LABS: Creatinine 24 Hour,Urine 832 mg/24hr (630-2500); Total Volume,Urine 1300 mL (600-1600)
[2024-07-14 09:52] LABS: Calcium, Urine 4.4 mg/dL (Not Estab.); Calcium, Urine 24hr 57 mg/24 hr (0-320)
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
--- OUTSIDE RECORDS SUMMARY | 2024-07-18 19:46 | XMS_ITS | Clinical Summary ---
Author Organization [facility] , [facility] Address [address] [place] [address] Phone Care Team Providers Care Guitar Maker Name Role Phone Gonzalez HOWARD, Arturo Camargo Unavailable [phone] ABY HOWARD, ELODIA Ramirez Primary Care Provider [phone] Reason for Visit and Chief Complaint [Patient Encounter] Problems Includes: Problems addressed during this encounter and other active Problems All Visits Onset Date Resolved Date Provider Condition S tatus Neck Pain 08/14/2023 TAWANA SEGUNDO PA-C Activ e Last Documented On 4 2:51PM ; [facility] Joint Pain, Localized in the Right Shoulder 07/17/2023 Devyn Bedolla MD Active Last Documented On 4 1:31PM ; [facility] Plan of Treatment Pending Tests Order Diagnosis Results Due Ordering P rovider Procedure/Tests BGO EMG Cervicalgia 08/28/23 TAWANA SEGUNDO PA-C Last Documented On 4 11:20AM ; [facility] Radiology - CT Scan Cervical Cervicalgia 08/28/23 ARAM SEGUNDO PA-C Last Documented On 4 11:20AM ; [facility] Radiology - CT Scan Cervical Cervicalgia 08/28/23 ARAM SEGUNDO PA-C Last Documented On 4 11:19AM ; [facility] Procedure/Tests BGO EMG Cervicalgia 08/28/23 TAWANA SEGUNDO PA-C Last Documented On 4 11:20AM ; [facility] Radiology - CT Scan Cervical Cervicalgia 03/05/24 ARAM SEGUNDO PA-C Last Documented On 4 11:41AM ; [facility] Assessments Includes: Assessments from this encounter No Assessments Recorded Medical Equipment - Implanted Devices Includes: Current Devices No Medical Equipment Recorded Medications Includes: Medications discussed during this encounter and other current Medications Current Medications (continue as prescribed) Midodrine HCl 2.5 MG Oral Tablet 07/18/2023 Provider : Diagnosis: Last Documented On 4 11:16AM By Liz Zamora ; [facility] PriLOSEC 10 MG Oral Packet 07/18/2023 Provider: Diagnosis: Last Documented On 4 11:17AM By Liz Zamora ; [facility] Wellbutrin SR 150 MG Oral Tablet Extended Release 12 H our 07/18/2023 Provider: Diagnosis: Last Documented On 4 11:17AM By Liz Zamora ; [facility] Felrdlyo-Bdannuujf-EM 1% Otic Solution 07/10/2023 Pr ovider: ELODIA BADILLO MD Diagnosis: Last Documented On 4 11:16AM By Liz Zamora ; [facility] tiZANidine HCl 4 MG Oral Tablet 07/10/2023 Provider: ELODIA BADILLO MD Diagnosis: Last Documented On 4 11:16AM By Liz Zamora ; [facility] HM Aspirin EC Low Dose 81 MG Oral Tablet Delayed Release 06/07/2023 Provider: ELODIA BADILLO MD Diagnosis: Last Documented On 4 11:16AM By Liz Zamora ; [facility] Gentamicin Sulfate 40 MG/ML Injection Solution 024 Provider: Diagnosis: Last Documented On 4 11:16AM By Liz Zamora ; [facility] Fluconazole 150 MG Oral Tablet 05/12/2023 Provider: ELODIA BADILLO MD Diagnosis: Last Documented On 4 11:16AM By Liz Zamora ; [facility] Nitrofurantoin Monohyd Macro 100 MG Oral Capsule 05/12/2023 Provider: ELODIA BADILLO MD Diagnosis: Last Documented On 4 11:16AM By Liz Zamora ; [facility], [facility] Medications Administered Includes: Administered Medications from this encounter No Administered Medications Recorded Results Includes: Results discussed during this encounter No Results Recorded For Specified Dates History of Present Illness Includes: History of Present Illness from this encounter No History of Present Illness Recorded Social History No Social History Recorded - Smoking Status Unknown Medical History Includes: Medical History addressed during this encounter No Medical History Recorded Family History Includes: Family History addressed during this encounter No Family History Recorded Review of Systems Includes: Review of Systems from this encounter No Review of Systems Recorded Mental Status Includes: Mental Status from this encounter No Mental Status Recorded Functional Status Includes: Functional Status from this encounter No Functional Status Recorded Physical Exam Includes: Physical Exam from this encounter No Physical Exam Recorded Allergies Includes: Active Allergies No Known Allergies Encounters Encounter Provider Location Date Check-In Time Check-Out Time Diagnosis [Patient Encounter] TAWANA SEGUNDO PA-C 11/27/2023 12:46PM 11:59PM Insurance Includes: Active Insurance Policies Plan Name Member ID Group # Subscriber Relationship Effect yvette Dates 1 - [employer]etna [facility] [id number] Bre Gray Self 3 - Unknown Clinical Notes Includes: Clinical Notes from this encounter No Clinical Notes Recorded
--- OUTSIDE RECORDS SUMMARY | 2024-07-18 19:47 | XMS_ITS | Clinical Summary ---
Author Organization [facility] , [facility] Address [address] [place] [address] Phone Care Team Providers Care Post Framer Name Role Phone Gonzalez HOWARD, Arturo Camargo Unavailable [phone] ABY HOWARD, ELODIA Ramirez Primary Care Provider [phone] Reason for Visit and Chief Complaint [Patient Encounter] Problems Includes: Problems addressed during this encounter and other active Problems All Visits Onset Date Resolved Date Provider Condition S tatus Neck Pain 08/14/2023 TAWANA SEGUNDO PA-C Activ e Last Documented On 4 2:51PM ; [facility], [facility] Joint Pain, Localized in the Right Shoulder 07/17/2023 Devyn Bedolla MD Active Last Documented On 4 1:31PM ; [facility], [facility] Plan of Treatment Pending Tests Order Diagnosis Results Due Ordering P rovider Procedure/Tests BGO EMG Cervicalgia 08/28/23 TAWANA SEGUNDO PA-C Last Documented On 4 11:20AM ; [facility] Radiology - CT Scan Cervical Cervicalgia 08/28/23 ARAM SEGUNDO PA-C Last Documented On 4 11:20AM ; [facility] Radiology - CT Scan Cervical Cervicalgia 08/28/23 ARAM SEGUNDO PA-C Last Documented On 4 11:19AM ; [facility] Procedure/Tests BGO EMG Cervicalgia 08/28/23 TAWANA SEGUNDO PA-C Last Documented On 4 11:20AM ; [facility] Radiology - CT Scan Cervical Cervicalgia 03/05/24 ARAM SEGUNDO PA-C Last Documented On 4 11:41AM ; [facility] Assessments Includes: Assessments from this encounter No Assessments Recorded Medical Equipment - Implanted Devices Includes: Current Devices No Medical Equipment Recorded Medications Includes: Medications discussed during this encounter and other current Medications Current Medications (continue as prescribed) Midodrine HCl 2.5 MG Oral Tablet 07/18/2023 Provider : Diagnosis: Last Documented On 4 11:16AM By Liz Zamora ; [facility], [facility] PriLOSEC 10 MG Oral Packet 07/18/2023 Provider: Diagnosis: Last Documented On 4 11:17AM By Liz Zamora ; [facility], [facility] Wellbutrin SR 150 MG Oral Tablet Extended Release 12 H our 07/18/2023 Provider: Diagnosis: Last Documented On 4 11:17AM By Liz Zamora ; [facility], [facility] Ilwuayxt-Hpcaphbkj-EZ 1% Otic Solution 07/10/2023 Pr ovider: ELODIA BADILLO MD Diagnosis: Last Documented On 4 11:16AM By Liz Zamora ; [facility], [facility] tiZANidine HCl 4 MG Oral Tablet 07/10/2023 Provider: ELODIA BADILLO MD Diagnosis: Last Documented On 4 11:16AM By Liz Zamora ; [facility], [facility] HM Aspirin EC Low Dose 81 MG Oral Tablet Delayed Release 06/07/2023 Provider: ELODIA BADILLO MD Diagnosis: Last Documented On 4 11:16AM By Liz Zamora ; [facility], [facility] Gentamicin Sulfate 40 MG/ML Injection Solution 024 Provider: Diagnosis: Last Documented On 4 11:16AM By Liz Zamora ; [facility], [facility] Fluconazole 150 MG Oral Tablet 05/12/2023 Provider: ELODIA BADILLO MD Diagnosis: Last Documented On 4 11:16AM By Liz Zamora ; [facility], [facility] Nitrofurantoin Monohyd Macro 100 MG Oral Capsule 05/12/2023 Provider: ELODIA BADILLO MD Diagnosis: Last Documented On 4 11:16AM By Liz Zamora ; [facility], [facility] Medications Administered Includes: Administered Medications from [...] Time Diagnosis [Patient Encounter] TAWANA SEGUNDO PA-C 10/19/2023 4:22PM 11:59PM Insurance Includes: Active Insurance Policies Plan Name Member ID Group # Subscriber Relationship Effect yvette Dates 1 - [employer] [facility] [id number] Bre Gray Self 3 - Unknown Clinical Notes Includes: Clinical Notes from this encounter No Clinical Notes Recorded
--- OUTSIDE RECORDS SUMMARY | 2024-07-18 19:47 | XMS_ITS | Clinical Summary ---
Author Organization [facility] , [facility] Address [address] [place] [address] Phone Care Team Providers Care Chassis Inspector Name Role Phone Gonzalez HOWARD, Arturo Camargo Unavailable [phone] ELODIA BADILLO MD Primary Care Provider [phone] Reason for Visit and Chief Complaint EMG Problems Includes: Problems addressed during this encounter and other active Problems All Visits Onset Date Resolved Date Provider Condition S tatus Neck Pain 08/14/2023 TAWANA SEGUNDO PA-C Activ e Last Documented On 4 2:51PM ; [facility] Joint Pain, Localized in the Right Shoulder 07/17/2023 Devyn Bedolla MD Active Last Documented On 4 1:31PM ; [facility] Plan of Treatment No Plan of Treatment Recorded Assessments Includes: Assessments from this encounter No Assessments Recorded Medical Equipment - Implanted Devices Includes: Current Devices No Medical Equipment Recorded Medications Includes: Medications discussed during this encounter and other current Medications Current Medications (continue as prescribed) Midodrine HCl 2.5 MG Oral Tablet 07/18/2023 Provider : Diagnosis: Last Documented On 4 11:16AM By [facility], [facility] PriLOSEC 10 MG Oral Packet 07/18/2023 Provider: Diagnosis: Last Documented On 4 11:17AM By Liz Zamora ; [facility] Wellbutrin SR 150 MG Oral Tablet Extended Release 12 H our 07/18/2023 Provider: Diagnosis: Last Documented On 4 11:17AM By Liz Zamora ; [facility] Rbiuabod-Evgzmyrjv-BN 1% Otic Solution 07/10/2023 Pr ovider: ELODIA BADILLO MD Diagnosis: Last Documented On 4 11:16AM By Liz Zamora ; [facility] tiZANidine HCl 4 MG Oral Tablet 07/10/2023 Provider: ELODIA BADILLO MD Diagnosis: Last Documented On 4 11:16AM By Liz Zamora ; [facility] HM Aspirin EC Low Dose 81 MG Oral Tablet Delayed Release 06/07/2023 Provider: ELODIA BADILLO MD Diagnosis: Last Documented On 4 11:16AM By Liz Zamora ; [facility] Gentamicin Sulfate 40 MG/ML Injection Solution 024 Provider: Diagnosis: Last Documented On 4 11:16AM By Liz Zamora ; [facility] Fluconazole 150 MG Oral Tablet 05/12/2023 Provider: ELODIA BADILLO MD Diagnosis: Last Documented On 4 11:16AM By Liz Zamora ; [facility] Nitrofurantoin Monohyd Macro 100 MG Oral Capsule 05/12/2023 Provider: ELODIA BADILLO MD Diagnosis: Last Documented On 4 11:16AM By Liz Zamora ; [facility] Medications Administered Includes: Administered Medications from this encounter No Administered Medications Recorded Results Includes: Results discussed during this encounter No Results Recorded For Specified Dates History of Present Illness Includes: History of Present Illness from this encounter No History of Present Illness Recorded Social History No Social History Recorded - Smoking Status Unknown Procedures and Surgical History Includes: Procedures from this encounter Procedures Code Diagnosis Performing Provider Service Location Service Date Nerve Conduction Studies; 7-8 studies 62063 Radiculopathy, cervical region Rufina Velasquez MD [facility] 09/07/2023 Last Documented On 4 9:10AM ; [facility] Needle EMG, complete, five or more muscles 78744 Radiculopathy, cervical region Rufina Velasquez MD [facility] 09/07/2023 Last Documented On 4 9:08AM ; [facility], [facility] Medical History Includes: Medical History addressed during [...] Location Date Check-In Time Check-Out Time Diagnosis EMG [facility] 09/07/2023 11:06AM 11:59PM Insurance Includes: Active Insurance Policies Plan Name Member ID Group # Subscriber Relationship Effect yvette Dates 1 - [employer] [facility] [id number] Bre Gray Self 3 - Unknown Clinical Notes Includes: Clinical Notes from this encounter No Clinical Notes Recorded
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
--- OUTSIDE RECORDS SUMMARY | 2024-07-18 19:47 | XMS_ITS ---
Care Plan - [facility] Created on: July 18, 2024 Bre Gray : 1965 Sex: Female Author Organization [facility] Address [address] [place] [address] Phone Care Team Providers Care Solar Panel Technician Name Role Phone Gonzalez HOWARD, Arturo Camargo Unavailable [phone] ABY HOWARD, ELODIA Ramirez Primary Care Provider [phone]
== END 2024-07-13 23:59 | disposition home or self-care (01) ==
LOC: LAB.DROPOF 11:12
PROVIDERS: PCP Internal Medicine; Visit Provider Nurse Practitioner
DX: E21.0 Primary hyperparathyroidism (principal)
CPT/HCPCS: 82340; 82570

== ENCOUNTER 2024-08-05 13:00 | Outpatient (RCR) | payer OTHER, SELFPAY ==
--- NOTE | 2024-07-23 14:27 | HMH.PTOPEV ---
PT Outpatient Evaluation Rehab PT Outpatient Evaluation Start: 07/23/24 13:00 Freq: Status: Active Protocol: Document 07/23/24 13:03 PDESEROUX (Rec: 07/23/24 14:27 PDESEROUX [id number]) E-signed By Daryn Zhang, PT Outpatient Therapy Subjective History Subjective History Pt. is a 59 year old female who presents to [facility] in [place] for the outpatient initial evaluation this date( 07/23/24) w/ c/o acute and constant LUE wrist P!, edema, and instability of traumatic onset secondary to a fall on 06/19/24. Pt. reports she was descending her front porch steps to take out the trash when her last step crumbled rolling her ankle and described a fall on an outstretched hand injury. Pt. also described her LUE 5th digit dislocated laterally at the MCP jt. where she then re- located it herself after fall. Pt. reports having multiple rounds of radiographs over several days secondary to increased edema from injury. Radiographs negative for a fracture per pt. report. Pt. reports RTMD 08/01/24 where they may take additional imaging per pt. report. Pt. reports she was instructed to don wrist brace. Pt. reports having symptom relief w/ brace , states she is able to move her fingers better w/ the brace compared to w/o the brace. Pt. also reports having some symptom relief w/ ice. Pt. reports having P! w/ everything. Pt. reports she is unable to dry herself w/ a towel after taking a shower, pump the soap in the shower, putting dishes away, and putting on her t-shirt. Current medications include Bupropion, Ibuprofen, Baby Aspirin, Prilosec, Vit. D. PMH includes pacemaker, osteoporosis, GERD, headaches, and S/P BLE hip pinning. New diagnosis of cancer in past 12 No months? Chief Complaint Pain,Stiff,Clicks,Swelling, Catches/Locks,Gives out/ Unstable,Weakness,Decreased Jumpbasting Canvas Baster Strength Symptom Type Ache,Throb,Sharp,Dull,Stabbing ,Shooting Symptoms Relieved By Rest/Positioning,Ice,Brace/ Support,OTC Meds,Elevation Symptoms Aggravated By Physical Activity,Twisting, Lifting Prior Functional Limitations None Current Functional Limitations Reaching,Lifting,Housework, Dressing,Desk Work/Reading, Driving,Sleeping,Recreation Activity Symptom Description Constant but Variable,Activity Dependent Level of pain today (0-10) 4 Pain scale - at its best (0-10) 3 Pain scale - at its worst (0-10) 9 Wrist/Hand Eval Palpation Tenderness/Visual Exam Wrist pain left tenderness wrist exam standard left Wrist swelling left Wrist/Hand Palpation Findings Tenderness,Muscle Guarding erythema wrist exam standard left erythema hand/finger exam standard left thenar eminence atrophy hand/finger exam left standard Wrist/Hand Palpation Overall Comment grade 4 +TTP Flexibility Deficits Wrist Extensors Muscle Length (L) Severe Tightness Wrist Flexors Muscle Length (L) Severe Tightness Supinator Muscle Length (L) Severe Tightness Pronator Muscle Length (L) Severe Tightness Hand Intrinsics Muscle Length (L) Severe Tightness Thumb Extensors Muscle Length (L) Severe Tightness Thumb Abductors Muscle Length (L) Severe Tightness Wrist Range of Motion Left Wrist Limitations of Range of Motion Soft Tissue Tightness,Muscle Weakness,Muscle Tone,Pain Wrist Extension Active Range of Motion ( 27 degrees) Wrist Extension Passive Range of Motion 37 (degrees) Wrist Flexion Active Range of Motion ( 31 degrees) Wrist Flexion Passive Range of Motion ( 44 degrees) Wrist Radial Deviation Active Range of 8 Motion (degrees) Wrist Radial Deviation Passive Range of 12 Motion (degrees) Wrist Ulnar Deviation Active Range of 27 Motion (degrees) Wrist Ulnar Deviation Passive Range of 37 Motion (degrees) Forearm Supination Active Range of 43 Motion (degrees) Forearm Supination Passive Range of 55 Motion (degrees) Forearm Pronation Active Range of Motion 69 (degrees) Forearm Pronation Passive Range of 73 Motion (degrees) Wrist Manual Muscle Testing Left Wrist Extension Strength Grade 3 Fair Wrist Flexion Strength Grade 3 Fair Wrist Radial Deviation Strength Grade 3 Fair Wrist Ulnar Deviation Strength Grade 3 Fair Extensor Carpi Radialis Brevis Strength 3 Fair Grade Extensor Carpi Radialis Longus Strength 3 Fair Grade Extensor Carpi Ulnaris Strength Grade 3 Fair Flexor Carpi Radialis Strength Grade 3 Fair Flexor Carpi Ulnaris Strength Grade 3 Fair Forearm Supination Strength Grade 3 Fair Forearm Pronation Strength Grade 3 Fair Jumpbasting Canvas Baster/Pinch Strength Jumpbasting Canvas Baster Strength Measurement (lbs) 3 Special Tests Wrist Tinel Test Negative Left Wrist Finklestein Test Positive Left Wrist Accessory Movement left Wrist Accessory Movements that Elicit Carpal Row 1 Dorsal [place], Symptoms Carpal Row 1 Volar [place], Carpal Row 1 Ulnar [place], Carpal Row 1 Radial [place] Distal Radioulnar Dorsal [place] (elbow Severely Decreased JAM) Distal Radioulnar Ventral [place] (elbow Severely Decreased JAM) Radiocarpal/Ulnocarpal Radial [place] Severely Decreased Radiocarpal/Ulnocarpal Ulnar [place] Severely Decreased Radiocarpal/Ulnocarpal Dorsal [place] Severely Decreased Radiocarpal/Ulnocarpal Volar [place] Severely Decreased Hand/Finger Accessory Movements Left Little Finger Metacarpal Phalangeal Radial [place] Severely Decreased Movement (finger JAM) Metacarpal Phalangeal Ulnar [place] Severely Decreased Movement (finger JAM) Metacarpal Phalangeal Dorsal [place] ( Severely Decreased finger JAM) Metacarpal Phalangeal Volar [place] ( Severely Decreased finger JAM) Wrist/Hand Muscle Tone Finger Extensors Muscle Tone Description Severe Hypertonicity Finger Flexors Muscle Tone Description Severe Hypertonicity Wrist Extensors Muscle Tone Description Severe Hypertonicity Wrist Flexors Muscle Tone Description Severe Hypertonicity Outpatient Therapy Assessment Impairments Problems/Impairmments Palpation Tenderness,Impaired Range of Motion,Impaired Strength,Impaired Endurance, Impaired Driving,Impaired Lifting,Impaired Dressing, Impaired Shower/Bathing, Impaired Household Care, Impaired Recreational Activities,Impaired Work Activities,Impaired Desk/ Computer Activities,Increased Edema,Subjective C/O Pain, Impaired Self Care/Self Management Prognosis Rehab Potential Good Comment w/ HEP compliancy Clinical Impression Consistent with Diagnosis Yes Consistent with LUE wrist sprain Short Term Goals Number of Weeks 2 Decreased Palpation Tenderness Yes: grade 2 +TTP Decrease Subjective C/O Pain Yes: worse:/10 Patient to be Ind w/ HEP Yes Nursing Home Goals Number of Weeks 4 Decreased Palpation Tenderness Yes: grade 1 +TTP Increase Range of Motion Yes: LUE wrist and 5th digit MCP A/PROM WFL grossly Increase Strength Yes: 4+ to 5/5 MMT scores grossly LUE wrist Improve Transfers Yes: Pt. will be able to bear weight through the LUE to assist w/ transfers Increase Ability to Drive/Ride in Car Yes Restore Ability to Lift Objects Overhead Yes: Pt. will be able to store away clean dishes Improve Ability to Dress Self Yes: Pt. will be able to don shirt IND. w/o difficulty Improve Ability to Shower/Bathe Self Yes: Pt. will be able to dry self IND. w/ towel w/o difficulty Improve Ability For Household Care Yes: Pt. will be able to wash dishes IND. 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 w/o difficulty Improve Quick Dash Score Yes Decrease Subjective C/O Pain Yes: worse:-06/17 Patient to be Ind w/ Advanced HEP Yes Outpatient Therapy Plan of Care Treatment Plan May Include Therapeutic Exercise Including Home Yes Exercise Program Manual Therapy Techniques Yes Neuromuscular Re-education Yes Therapeutic Activities to Return to Yes Previous Functional/Work Level ADL/Self Care Education Yes Thermal Modalities Yes Electrical Stimulation Yes Ultrasound/Phonophoresis Yes Iontophoresis Yes Parrafin Yes Vasopneumatic Compression Pump Yes Massage Yes Eval/Re-Eval Yes Frequency Times per week 2 Duration Number of Weeks 4 Addendums This patient is a candidate for social No or vocational rehab? Patient/Guardian verbally acknowledges Yes understanding of treatment program and consents to further treatment? Patient/Guardian verbally acknowledges Yes understanding of diagnosis, prognosis and goals for treatment? Eval Complexity PT Charges 75135 - Moderate Complexity Shoulder/Elbow Eval Shoulder Objective Measurements Elbow Objective Measurements PHYSICIAN CERTIFICATION: I certify the specified therapy services for Bre Gray are required, authorized, and reviewed every 30 days.
== END 2024-08-05 23:59 | disposition home or self-care (01) ==
LOC: PT 13:00
PROVIDERS: PCP Internal Medicine; Visit Provider Physician Assistant
DX: S63.502A Unspecified sprain of left wrist, initial encounter (principal)
CPT/HCPCS: 97014; 97035; 97110; 97163; G0283

== ENCOUNTER 2024-08-21 13:15 | Outpatient (CLI) | payer OTHER, SELFPAY ==
[2024-08-21 12:36] LABS: Basophils # 0.1 K/mm3 (0-0.2); Eosinophils # 0.1 Kmm3 (0.0-0.4); Hematocrit 39.4 % (37.0-47.0); Hemoglobin 12.4 g/dL (12.2-16.2); Immature Granulocytes # 0.01 10^3uL; Immature Granulocytes % 0.2 %; Lymphocytes # 2.3 K/mm3 (0.7-4.5); Lymphocytes % 45.1 % (10-50); Mean Corpuscular HGB Conc 31.5 g/dL (31.8-35.4); Mean Corpuscular Hemoglobin 30.2 pg (27.0-31.2); Mean Corpuscular Volume 95.9 fl (81-99); Mean Platelet Volume 9.1 fl (7.4-10.4); Monocytes # 0.4 K/mm3 (0.1-1.0); Neutrophils # 2.2 K/mm3 (1.8-7.8); Neutrophils % 43.7 % (37.0-80.0); Nucleated Red Blood Cells # 0 10^3/uL; Nucleated Red Blood Cells % 0 %; Platelet Count 279 K/mm3 (142-424); Red Blood Count 4.11 M/mm3 (4.20-5.40); Red Cell Distribution Width 13.7 % (11.5-17.5); Red Cell Distribution Width-SD 48.9 fL
[2024-08-21 13:02] LABS: Albumin Level 4.5 g/dl (3.5-5.0); Chloride 112 mmol/L (98-107); Potassium 4.1 mmoL/L (3.5-5.1); Sodium 141 mmol/L (136-145)
[2024-08-21 13:04] LABS: Alanine Aminotransferase 13 U/L (12-78); Anion Gap 11.1 mEq/L (5-15); Aspartate Amino Transferase 20 U/L (14-36); Blood Urea Nitrogen 24 mg/dl (7-17); Carbon Dioxide 22 mmol/L (22.0-30.0); Estimated Glomerular Filt Rate 57 ml/min (>60); GFR (African American) 68 ML/MIN (>60)
[2024-08-21 13:05] LABS: Albumin/Globulin Ratio 2.1 (1.1-1.8); Alkaline Phosphatase 79 U/L (38-126); Bilirubin,Total 0.3 mg/dl (0.2-1.3); Calcium 10.2 mg/dl (8.4-10.2); Chol/HDL Ratio 2.2 (1-3.5); Cholesterol 182 mg/dl (140-200); Globulin 2.1 g/dL (1.3-3.2); Glucose 82 mg/dl (74-100); HDL Cholesterol 81 mg/dl (40-60); Total Protein,Serum 6.6 g/dl (6.3-8.2); Triglycerides 144 mg/dl (30-150); VLDL Cholesterol 29 mg/dL (0-40)
[2024-08-21 13:20] LABS: Intact Parathyroid Hormone 172.5 pg/mL (7.5-53.5)
== END 2024-08-21 23:59 | disposition home or self-care (01) ==
LOC: LAB.DROPOF 08-23 13:15
PROVIDERS: PCP Internal Medicine; Visit Provider Internal Medicine
DX: E53.8 Deficiency of other specified B group vitamins (principal); E78.5 Hyperlipidemia, unspecified; E21.3 Hyperparathyroidism, unspecified; M81.0 Age-related osteoporosis without current pathological fracture; E83.52 Hypercalcemia
CPT/HCPCS: 80053; 80061; 83970; 85025

== ENCOUNTER 2024-08-23 14:27 | Outpatient (CLI) | payer OTHER, SELFPAY | END 2024-08-23 23:59 | disposition home or self-care (01) | LOC: RAD 14:27 | PROVIDERS: PCP Internal Medicine; Visit Provider Physician Assistant | DX: R69 Illness, unspecified (principal) ==

== ENCOUNTER 2024-11-13 16:00 | Outpatient (CLI) | payer OTHER, SELFPAY ==
--- OUTSIDE RECORDS SUMMARY | 2024-09-17 08:30 | XMS_ITS | Encounter Summary ---
Author Organization Healthcare Address [address] [place] [address] Care Team Providers Care Abatement Worker Name Role Phone Honorio Mackey MD Primary Care Provider [phone] Reason for Visit * Reason Comments Genetic Counseling Results Hereditary Cancer Ge netic Test Results * Consultation (Routine) - Closed Specialty Diagnoses / Procedures Referred By Carmella solano Referred To Contact Genetics Diagnoses Primary hyperparathyroidism (CMS/HCC) Chester Hardin MD [address] [facility] [address] [place] [address] Phone: tel: fax: [facility] [address] [facility], [address]st [place] [address] Phone: tel: fax: Referral ID Status Reason Start Date Expiration Date V isits Requested Visits Authorized [id number] Closed Specialty Services Required 08/14/2024 02/13/2026 1 1 Encounter Details Date Type Department Care Team ([facility] st Contact Info) Description 09/17/2024 8:30 AM EDT Clinical Support Pav CC Head, Neck & Respiratory [address] [facility]nd [place] [address] Gaby Delacruz, MCKAYLA [address] [facility] [address] [place] [address] Encounter for nonprocreative genetic counseling (Primary Dx); Primary hyperparathyroidism (CMS/HCC) Social History Tobacco Use Types Packs/Day Years Used Date Smoking Tobacco: Never Smokeless Tobacco: Never Alcohol Use Standard Drinks/Week Comments Yes 1 (1 standard drink = 0.6 oz pur e alcohol) Humiliation, Afraid, Rape, and Kick questionnair e Answer Date Recorded Within the last year, have y ou been afraid of your partner or ex-partner? Patient declined 07/11/2024 Within the last year, have y ou been humiliated or emotionally abused in other ways by your partner or ex-partner? Patient declined 07/11/2024 Within the last year, have y ou been kicked, hit, slapped, or otherwise physically hurt by your partner or ex-partner? Patient declined 07/11/2024 Within the last year, have y ou been raped or forced to have any kind of sexual activity by your partner or ex-partner? Patient declined 07/11/2024 Social Connection and Isolation Panel Answer Date Recorded In a typical week, how many times do you talk on the phone with family, friends, or neighbors? Patient declined 07/11/2024 How often do you get togethe r with friends or relatives? Patient declined 07/11/2024 How often do you attend muslim or shinto serv ices? Patient declined 07/11/2024 Do you belong to any clubs o r organizations such as muslim groups, unions, fraternal or athletic groups, or school groups? Patient declined 07/11/2024 How often do you attend meet ings of the clubs or organizations you belong to? Patient declined 07/11/2024 Are you , , di vorced, , never , or living with a partner? Patient declined 07/11/2024 AUDIT-C Answer Date Recorded Q1: How often do you have a drink containing alc ohol? Patient declined 07/11/2024 Q2: How many drinks containi ng alcohol do you have on a typical day when you are drinking? Patient declined 07/11/2024 Q3: How often do you have si x or more drinks on one occasion? Patient declined 07/11/2024 Overall Financial Resource Strain (CARDIA) Answe r Date Recorded How hard is it for you to pa y for the very basics like food, housing, medical care, and heating? Patient declined 07/11/2024 PHQ-2 Answer Date Recorded Patient Health Questionnaire-2 Score 0 08/11/2022 [facility] [employer] of Occupat ional Health - Occupational Stress Questionnaire Answer Date Recorded Do you feel stress - tense, restless, nervous, or anxious, or unable to sleep at night because your mind is troubled all the time - these days? Patient declined 07/11/2024 Exercise Vital Sign Answer Date Recorde d On average, how many days pe r week do you engage in moderate to strenuous exercise (like a brisk walk)? Patient declined On average, how many minutes do you engage in exercise at this level? Patient declined 07/11/2024 Hunger Vital Sign Answer Date Recorded Within the past 12 months, y ou worried that your food would run out before you got the money to buy more. Patient declined Within the past 12 months, t he food you bought just didn't last and you didn't have money to get more. Patient declined 06/2024 PRAPARE - Transportation Answer Date Re corded In the past 12 months, has l ack of transportation kept you from medical appointments or from getting medications? Patient declined 07/11/2024 In the past 12 months, has l ack of transportation kept you from meetings, work, or from getting things needed for daily living? Patient declined 07/11/2024 Housing Stability Vital Sign Answer Felipe e Recorded In the last 12 months, was t here a time when you were not able to pay the mortgage or rent on time? Patient declined 07/12/19 25 Number of Times Moved in the Last Year Not on fi le 07/11/2024 At any time in the past 12 m [facility], were you homeless or living in a retirement (including now)? Patient declined 07/11/2024 Utilities Answer Date Recorded In the past 12 months has th e electric, gas, oil, or water company threatened to shut off services in your home? Patient declined 07/11/2024 PHQ-2A Answer Date Recorded Patient Health Questionnaire-2 Score 0 08/11/2022 Comments No Sex and Gender Information Value Date Recorded Sex Assigned at Female 11/15/2022 7:59 PM EDT Legal Sex Female 8:29 PM EDT Gender Identity Female 11/15/2022 7:59 PM EDT Sexual Orientation Straight 11/15/2022 7: 59 PM EDT documented as of this encounter Miscellaneous Notes * Progress Notes - Gaby Delacruz GC - 09/17/2024 8:30 AM EDT Images from the original note were not included. [facility][note 3] Clinical Cancer Genetics Consultation Patient Name: Bre Gray Date of : 1965 This patient's identity has been confirmed using name and date of and the patient has confirmed that they are physically located in [place] in order to proceed with this appointment via telehealth. Bre is a 59 y.o. year old female who was referred for genetic counseling due to a personal diagnosis of primary hyperparathyroidism. She was unaccompanied to her visit. Ms. Gray was previously diagnosed with primary hyperparathyroidism in 2021. Per Dr. Hardin, Ms. Gray had shown hypercalcemia since 2017. Ms. Gray provided the following personal history information: Menarche- 13 Total number of pregnancies- 2 Age at first live - 19 Hx - No Menopause status - unsure. Patient reported having uterus and one ovary removed at age 23. control use- Yes, used for 1 years Hormone replacement use- No Mammogram- Yes, mammo in 2024 Hx Breast Biopsy- Yes, 1 biopsy that was normal per patient. KAVIN/BSO- Uterus and one ovary removed in 1987 per patient Colonoscopy- Yes, in year 2014 with no polyps Upper endoscopy- No Ms. Gray was interested in discussing her risk for a hereditary cancer syndrome. FAMILY HISTORY (see pedigree below): Father diagnosed with cancer of the neck, squamous cell carcinoma per patient, at age 56; at age 57. Patient reported this individual had a history of smoking. Paternal aunt diagnosed with unknown cancer in her 60s; in her 60s. Patient reported this individual had a history of smoking. Patient denies any family history of primary hyperparathyroidism or hypercalcemia. We do not have the medical records regarding the diagnoses in the patient's family. She denies any Ashkenazi Buddhist ancestry or consanguinity. CANCER RISK ASSESSMENT AND GENETIC COUNSELING: We reviewed the patient's medical and family historyin detail. We also discussed the characteristics of sporadic cancer versus familial cancer versus hereditary cancer syndromes. Family histories typical of hereditary cancer syndromes usually include multiple close relatives diagnosed with the same type of cancer or cancer types that are part of a defined hereditary condition. Hereditary cancer is usually diagnosed at a younger than expected age (<50 years of age) and may involve more than one primary site in a single individual. Regarding the hereditary forms of cancer, autosomal dominant inheritance was reviewed. We briefly discussed potential changes in screening and management guidelines that could occur, based on genetic testing results. Primary hyperparathyroidism (PHPT) is part of an inherited disorder in ?10% of patients. Familial PHPT results in varying degrees of hypercalcemia. PHPT must be differentiated from familial hypocalciuric hypercalcemia (FHH) because the management strategies are different. Variants in several genes have been associated with familial PHPT, including CDC73, CDKN1B, GCM2, MEN1, RET and CASR. Familial Hypocalciuric Hypercalcemia (FHH) presents in adulthood with elevated levels of calcium inthe blood (hypercalcemia) with dqvpno-jc-[id number] level of calcium in the urine (hypocalciuria). Per NIHStat Pearls, FHH is typically caused by a modified calcium-sensing mechanism where a higher serum calcium is needed to suppress parathyroid hormone release as the parathyroid glands are less sensitive to calcium. This can contribute to increased calcium and magnesium reabsorption in the kidney. If left untreated, severe hypercalcemia can lead to kidney disease and bone disease, such as osteoporosis. There are people born with a predisposition to developing FHH due to mutations in the APS2S1, CASR, and GNA11 genes. GENETIC TESTING: It is reasonable to consider genetic testing for FHH vs PHPT genes including the genes listed above. After reviewing the patient???s medical history, family history, and risk assessment, we discussed genetic testing options. Specifically, we talked about currently available multi-gene panel testing options, including benefits and limitations. The patient did not report a significant family history of cancer or tumors so a cancer specific panel was not recommended. ? The patient elected to proceed with the following test: ? [facility] Hereditary Hyperparathyroidism Panel Genes included: AP2S1, CASR, CDC73, CDKN1B, GNA11, MEN1, RET, TRPV6, and GCM2 ? Lab: [facility] ? Turnaround Time:?Approximately 3 weeks ? We explained possible results of genetic testing including positive, negative or a variant of uncertain significance, and briefly discussed the implications of each. PLAN: A saliva sample kit will be mailed to the patient's home and they will send this sample to [facility] for testing via the above panel. [facility] will bill the patient's insurance company for the genetic testing. Patients can also reach out to [facility]'s billing department ([email or web address] or [phone]) if they have anyquestions or want to learn more about payment options. Patient's OOP cost estimate was $0 per [facility] lab portal. I will contact the patient by [employer] [place] message with the genetic test results when they are available, usually in about 3 weeks from the date that the lab receives the sample. If the results are positive/abnormal, I will contact the patient by phone to discuss the results. The Genetic Information Nondiscrimination Act (TOMMY) was reviewed. It was a pleasure to meet with this patient and I remain available to the patient, their physicians, and family for future questions or concerns. I can be reached at [phone]. Written informationregarding genetic testing was sent to the patient following their appointment. Telehealth Statement Patient Verification Patient identity has been confirmed using name and date of ? Yes Authorizations and Agreements/Telemedicine Consent sent and consent confirmed? Yes Patient Location: Home/Other Patient confirms they are physically located in [place]? Yes If the patient is not physically located in [place], the provider has confirmed with [facility] thatthe provider is authorized to provide services in patient's stated location? N/a Provider Location: home Audio and video or audio only? Audio and video Total time regarding patient care was approximately 70 minutes * Progress Notes - Gaby Delacruz GC - 09/17/2024 8:30 AM EDT Attached media from the original note were not included. [facility][note 3] Clinical Cancer Genetics Results Note Patient Name: Bre Gray Date of : 1965 The test performed for Ms. Gray was [facility] Hereditary Hyperparathyroidism Panel with Add-on Preliminary-evidence Gene for Hyperparathyroidism through [facility] that involved the analysis ofthe following genes: AP2S1, CASR, CDC73, CDKN1B, GCM2, GNA11*, MEN1*, RET, TRPV6. Results were disclosed to patient via [employer] message. The patient is encouraged to call us directly if they have any questions/concerns about their genetic testing results. The analysis of the genes listed above was reported as negative; no mutation detected (see attachedresults). Therefore, Ms. Gray???s genetic test results do not provide an explanation for her personal history of hyperparathyroidism or family history of cancer. However, since the patient does not have a mutation, she could not have passed on a mutation in the tested genes to her children. There are a number of possible explanations for the negative test result. One possibility is that Ms. Gray's hyperparathyroidism and the cancers in her family are not due to an inherited gene mutation. The results could also be negative because she has a mutation in one of the tested genes that cannot be detected by current technology, or because she has a mutation in a different gene other than those tested. There is the possibility there is a hereditary condition in the family and she did notinherit it. Additionally, there is always a very small chance that the laboratory could make an error in performing a genetic test. We only use laboratories that are federally certified and that makethe best effort to provide accurate test results. The patient???s genetic test results mean that her recommendations for cancer screening and prevention should be based on her personal history of hyperparathyroidism and family history of cancer. Thepatient should continue to follow all treatment and surveillance recommendations made to her by her physicians. The following recommendations have been developed to be inclusive of all gender and sexual identities to the greatest extent possible. Below, the terms male and female refer to sex assigned at . The patient???s family members should receive cancer screening based on their family history of cancer; suggested recommendations include: BREASTS: For females between the ages of 25 and 39 who do not have any signs of breast cancer (likea lump, nipple changes, or breast pain) and are at average risk, the NCCN recommends being aware ofhow their breasts normally look and feel. This can include checking their breasts themselves each month. They should also see a doctor for a breast exam every 1 to 3 years. Starting at age 40, females should get a breast exam from a doctor at least once a year. They should also get a screening mammogram (ideally using a special kind of 3D imaging called tomosynthesis) every year. If a first-degree relative (parent, sibling, or child) has been diagnosed with breast cancer, females should have yearly mammograms beginning 10 years earlier than that relative???s diagnosis or at age 40, whichever is younger. Females in the family can also be evaluated by a genetic counselor to see if they meet criteria for screening breast MRI in addition to mammography. The [place] [employer] guidelines state breast cancer screening with MRI should be considered in females with greater than a 20% lifetime chance of breast cancer as estimated by a model largely based on family history. This patient's lifetime risk was estimated to be 7.58% according to the Doris model and 2.54% according to the DOUG model. Therefore, she does not meet the guideline for annualscreening breast MRI. It has been shown that females with a 5-year risk estimate of more than 1.6% benefit from breast cancer risk reduction by taking tamoxifen or a similar drug for five years. Higher risk females who took tamoxifen reduced their chance to be diagnosed with breast cancer by about 50%. The patient's 5y risk of developing breast cancer calculated by the Doris model is 1.49%. Therefore, she does not meetcriteria to discuss chemoprevention. OVARIES: Since the patient does not report having a family history of ovarian cancer and she does not have a pathogenic mutation in one of the tested genes, the patient is likely at average risk for ovarian cancer. Ovarian cancer screening has not been proven to be beneficial and is not routinely recommended for individuals at average risk. UTERUS: Uterine cancer screening is not recommended for individuals at average to increased risk ofuterine cancer. Screening has only been proven beneficial for individuals at very high risk of uterine cancer (40-60%). All patients are encouraged to know the signs and symptoms of uterine cancer. The most common symptom is abnormal vaginal bleeding. In post menopausal individuals, all vaginal bleeding, regardless of amount, should be evaluated by a physician. COLON: For people ages 45 to 75 who have an average risk of getting colorectal cancer, the NCCN recommends regular screening. There are different ways to do this, like a colonoscopy, flexible sigmoidoscopy, stool test, or a special CT scan called a CT colonography. The best choice depends on talking with your doctor about the pros and cons of each test. People are considered average risk if they do not have: a personal or family history of colorectal cancer; a parent, sibling, or child with advanced colon polyps; a history of having colon polyps themselves; certain health problems like inflammatory bowel disease, cystic fibrosis, or childhood cancer. If someone does have any of these risk factors, they should follow screening advice from their GI doctor or another medical provider. For people over age 76, screening decisions should be made with their doctor, based on their overall health, life expectancy, and past screening history. Anyone, no matter how old, who has symptoms that could be from colorectal cancer--like bleeding from the rectum, new anemia, diarrhea, belly pain, or losing weight without trying--should tell their doctor about these symptoms right away. PROSTATE: For males who have an average chance of getting prostate cancer, the NCCN suggests talking with a doctor about the risks and benefits of prostate cancer screening (like the PSA blood test and a digital rectal exam) starting at age 45. After that, patients should follow their doctor's advice about when to get checked again. The NCCN does not recommend prostate cancer screening for males after 75 years old or for males who are not expected to live more than 10 more years, except in somespecial cases. LUNG: The NCCN says that people should talk with their doctor about the benefits and limitations oflung cancer screening if they are at least 50 years old, have smoked for 20 years or more and/or have smoked the equivalent of a adgv-vqg-vum for 20 years, and if they are healthy enough to get treatment if cancer is found. If someone chooses to get screened, doctors recommend a special kind of scan called a low-dose CT (LDCT) - a regular chest x-ray is not recommended to screen for lung cancer. Screening is not a replacement for quitting smoking. Anyone who smokes cigarettes or uses other tobacco should try to stop - help to quit smoking is available at www.smokefree.gov. For more information, call the [facility] Lung Cancer Screening immigration coordinator at [phone] (134-LSE-KEXR) or [phone], or email [email or web address]. You must have a primary care provider to take part in the lung cancer screening program. In addition to the preceding specific screening recommendations, we encourage Ms. Gray and her family members continue to receive routine cancer surveillance as recommended to members of the general population. These screening recommendations are based on the patient???s personal and family historyas provided and may change in the future should new information be obtained. The patient is encouraged to contact our office if there is any change in her health status or the health status of her family members, especially if there are additional cancer diagnoses. If the patient has any questions about her genetic test result, the cancer screening recommendations, or if she is having trouble coping with her test results she should feel free to contact me at [phone]. documented in this encounter Plan of Treatment Upcoming Encounters Date Type Department Care Team (Latest Contact Info) Description 11/19/2024 11:30 AM EDT Appointment Cardiac Imaging [address] [place] [address] 12/02/2024 12:30 PM EDT Appointment [facility] Radiology [address] [place] [address] 12/11/2024 9:30 AM EDT Pre-Admission Testing [facility] Anesthesia [address] [place] [address] 12/25/2024 8:00 AM EDT Hospital Encounter [facility] Operating Room [address] [place] [address] Chester Hardin MD [address] [address] 12/25/2024 8:00 AM EDT - 12/25/2024 10:30 AM EDT Surgery [facility] Operating Room [address] [place] [address] Chester Hardin MD [address] [address] PARATHYROIDECTOMY [[id number] (CPT )] 01/09/2025 3:30 PM EDT Office Visit Medical Office Building Surgical Specialties [address] [place] [address] Chester Hardin MD [address] [facility] [address] [place] [address] Scheduled Procedures Name Priority Associated Diagnoses Date/Ti me PARATHYROIDECTOMY Hyperparathyroidism ([facility]/HCC) 12/25/2024 8:00 AM EDT documented as of this encounter Visit Diagnoses Diagnosis Encounter for nonprocreative genetic counseling- Primary Primary hyperparathyroidism (CMS/HCC) Primary hyperparathyroidism Hyperparathyroidism (CMS/HCC) Hyperparathyroidism, unspecified documented in this encounter Additional Health Concerns Infection Onset Date Last Indicated Resolved Time C. difficile 07/10/2024 07/10/2024 Assessment Noted Time A fall risk assessment has been complete d for the patient 10/21/2021 9:09 AM EDT A Body Mass Index follow-up plan has been documented for the patient 07/11/2024 3:52 PM EDT documented as of this encounter Care Teams Abatement Worker Relationship Specialty Start Date End Date Honorio Mackey MD [address] [facility] [address] [place] [address] PCP - General 03/22/23 documented as of this encounter
--- OUTSIDE RECORDS SUMMARY | 2024-10-10 11:00 | XMS_ITS | Encounter Summary ---
Author Organization Healthcare Address [address] [place] [address] Care Team Providers Care Backside Grinder Name Role Phone Honorio Mackey MD Primary Care Provider [phone] Reason for Visit * Reason Comments Follow-up Encounter Details Date Type Department Care Team (Latest Contact Info) Description 10/10/2024 11:00 AM EDT Office Visit Medical Office Building Surgical [facility] [address] [facility], [address] [place] [address] Chester Hardin MD [address] [address] Hyperparathyroidism ([facility]) (Primary Dx) Social History Tobacco Use Types Packs/Day Years Used Date Smoking Tobacco: Never Smokeless Tobacco: Never Tobacco Cessation:Counseling Given: Not Answered Alcohol Use Standard Drinks/Week Comments Yes 1 (1 standard drink = 0.6 oz pur e alcohol) Social Connection and Isolation Panel Answer Date Recorded In a typical week, how many times do you talk on the phone with family, friends, or neighbors? Patient declined 07/11/2024 How often do you get togethe r with friends or relatives? Patient declined 07/11/2024 How often do you attend yarsani or anabaptist serv ices? Patient declined 07/11/2024 Do you belong to any clubs o r organizations such as yarsani groups, unions, fraternal or athletic groups, or [...] drinks on one occasion? Patient declined 07/11/2024 PHQ-2 Answer Date Recorded Patient Health Questionnaire-2 Score 0 10/10/2024 PHQ-9 Answer Date Recorded Patient Health Questionnaire-9 Score 0 10/10/2024 Housing Stability Vital Sign Answer Felipe e Recorded In the last 12 months, was t here a time when you were not able to pay the mortgage or rent on time? Patient declined 07/12/19 Number of Times Moved in the Last Year Not on [facility] 07/11/2024 At any time in the past 12 m [facility], were you homeless or living in a usp (including now)? Patient declined 07/11/2024 Humiliation, Afraid, Rape, and Kick questionnair e Answer Date Recorded Within the last year, have y ou been afraid of your partner or ex-partner? No 10/10/2024 Within the last year, have y ou been humiliated or emotionally abused in other ways by your partner or ex-partner? No Within the last year, have y ou been kicked, hit, slapped, or otherwise physically hurt by your partner or ex-partner? No 10/10/2024 Within the last year, have y ou been raped or forced to have any kind of sexual activity by your partner or ex-partner? No 10/10/2024 Social Connection and Isolation Panel Answer Date Recorded In a typical week, how many times do you talk on the phone with family, friends, or neighbors? More than three times a week 10/10/2024 How often do you get togethe r with friends or relatives? Twice a week 10/10/2024 How often do you attend [facility] or anabaptist services? Never 10/10/2024 Do you belong to any clubs o r organizations such as yarsani groups, unions, fraternal or athletic groups, or school groups? No 10/10/2024 How often do you attend meet ings of the clubs or organizations you belong to? Never 10/10/2024 Are you , , di vorced, , never , or living with a partner? 10/10/2024 AUDIT-C Answer Date Recorded Q1: How often do you have a drink containing alcohol? Never 10/10/2024 Q2: How many drinks containi ng alcohol do you have on a typical day when you are drinking? Patient does not drink Q3: How often do you have si x or more drinks on one occasion? Never 10/10/2024 Overall Financial Resource Strain (CARDIA) Answe r Date Recorded How hard is it for you to pa y for the very basics like food, housing, medical care, and heating? Not hard at all 10/10/2024 [facility] - Occupational Stress Questionnaire Answer Date Recorded Do you feel stress - tense, restless, nervous, or anxious, or unable to sleep at night because your mind is troubled all the time - these days? To some extent 10/10/2024 Exercise Vital Sign Answer Date Recorde d On average, how many days pe r week do you engage in moderate to strenuous exercise (like a brisk walk)? 0 days 10/10/2024 On average, how many minutes do you engage in exercise at this level? 0 min 10/10/2024 Hunger Vital Sign Answer Date Recorded Within the past 12 months, y ou worried that your food would run out before you got the money to buy more. Never true 10/11/19 25 Within the past 12 months, t he food you bought just didn't last and you didn't have money to get more. Never true 10/10/2024 PRAPARE - Transportation Answer Date Re corded In the past 12 months, has l ack of transportation kept you from medical appointments or from getting medications? No 06/2024 In the past 12 months, has l ack of transportation kept you from meetings, work, or from getting things needed for daily living? No 10/10/2024 Housing Stability Vital Sign Answer Felipe e Recorded In the last 12 months, was t here a time when you were not able to pay the mortgage or rent on time? No 10/10/2024 In the past 12 months, how m any times have you moved where you were living? 0 10/10/2024 At any time in the past 12 m [facility], were you homeless or living in a usp (including now)? No 10/10/2024 Utilities Answer Date Recorded In the past 12 months has th e [employer], gas, oil, or water [employer] threatened to shut off services in your home? No 10/10/2024 PHQ-2A Answer Date Recorded Patient Health Questionnaire-2 Score 0 08/11/2022 Comments No Sex and Gender Information Value Date Recorded Sex Assigned at Female 11/15/2022 7:59 PM EDT Legal Sex Female 8:29 PM EDT Gender Identity Female 11/15/2022 7:59 PM EDT Sexual Orientation Straight 11/15/2022 7: 59 PM EDT documented as of this encounter Last Filed Vital Signs Vital Sign Reading Time Taken Comments Blood Pressure 118/79 10/10/2024 11:02 AM EDT Pulse 79 10/10/2024 11:02 AM EDT Temperature - - Respiratory Rate 16 10/10/2024 11:02 AM EDT Oxygen Saturation 100% 10/10/2024 11:02 AM EDT Inhaled Oxygen Concentration - - Weight 51.4 kg (113 lb 5.1 oz) 10/10/2024 11:02 AM EDT Height 157.5 cm (5' 2 ) 10/10/2024 11:02 AM EDT Body Mass Index 20.73 10/10/2024 11:02 AM EDT documented in this encounter Functional Status * AUDIT-C Score Answer Date of Assessment Author 0 10/10/2024 11:04 AM EDT Margarito Stearns * Question Answer Date of Assessment Author Q1: How often do you have a drink containing alcohol? Never 10/10/2024 11:04 AM EDT Margarito Stearns Q2: How many drinks containing alcohol do you have on a typical day when you are drinking? Patient does not drink 10/10/2024 11:04 AM EDT Margarito Stearns Q3: How often do you have six or more drinks on one occasion? Never 10/10/2024 11:04 AM Margarito Villasenor * Over the past 2 weeks, how often have you been bothered by any of the following problems? Question Answer Date of Assessment Author Little interest or pleasure in doing things Not at all 10/10/2024 11:04 AM Margarito Villasenor Feeling down, depressed, or hopeless Not at all 10/10/2024 11:04 AM Margarito Villasenor Patient Health Questionnaire -2 Score 0 10/10/2024 11:04 AM Margarito Villasenor * Question Answer Date of Assessment Author Trouble falling or staying asleep, or sleeping too much Not at all 10/10/2024 11:04 AM Margarito Villasenor Feeling tired or having silvia le energy Not at all 10/10/2024 11:04 AM Margarito Villasenor Poor appetite or overeating Not at all 10/10/2024 11 :04 AM Margarito Villasenor Feeling bad about yourself - or that you are a failure or have let yourself or your family down Not at all 10/10/2024 11:04 AM Margarito Savage Trouble concentrating on thi ngs, such as reading the newspaper or watching television Not at all 10/10/2024 11:04 AM Margarito Villasenor Moving or speaking so slowly that other people could have noticed? Or the opposite - being so fidgety or restless that you have been moving around a lot more than usual. Not at all 10/10/2024 11:04 AM Margarito Villasenor Thoughts that you would be b zach off or hurting yourself in some way Not at all 10/10/2024 11:04 AM Margarito Villasenor Patient Health Questionnaire -9 Score 0 10/10/2024 11:04 AM Margarito Villasenor * If you checked off any problems on this questionnaire so far, Question Answer Date of Assessment Author How difficult have these problems made it for you to do your work, take care of things at home, or get along with other people? Not difficult at all 10/10/2024 11:04 AM Margarito Villasenor documented as of this encounter Miscellaneous Notes * Kyle Guerra Shaji Quevedo RN - 10/10/2024 11:45 AM EDT Images from the original note were not included. [id number] After Thyroid or Parathyroid Surgery - Dr. Hardin Incision care Your incision will be covered with steri-strips. Steri-strips are pieces of white tape on the incision. ?? When to remove coverings: Steri-strips will fall off on their own 1-2 week after surgery. ?? Leave the incision open to the air. ?? You may apply lotion 2 weeks after surgery or when the incision looks to be healed with no scabs. ?? Wait 2 weeks after surgery before swimming or letting the incision stay under water in a bathtub. ?? Use sunscreen on the incision for the first year to prevent darker scars. Showering and bathing ?? Wait 48 hours after surgery before showering. ?? It?s OK if the steri-strips get wet. ?? Shower normally with soap, water, and shampoo. ?? Let the water run over the incision. Pat dry with a towel after showering. ?? Do not let the incision go under water in the bathtub for 2 weeks. Pain control It may really hurt to cough, sneeze, and swallow (like strep throat) for 2-3 days after surgery. Itshould get better quickly after the first few days. Most patients use [id number]-[id number] Tylenol (acetaminophen) and/or Advil (ibuprofen) for pain after surgery. ?? Tylenol (acetaminophen): 500-1000 mg every 6 hours as needed. ?? Advil (ibuprofen): 400-600 mg 3 times a day with food as needed. Activities ?? Move your neck in all directions to prevent neck soreness, tightness and headaches. ?? No driving or heavy lifting for 5 days after surgery. ?? You may return to your other normal activities. Diet You may return to your normal diet. Liquids and soft foods may be easier the first few days after surgery. Numbness or tingling Numbness or tingling in the fingertips, face or mouth, or cramping of the hands, may be a sign of low calcium. ?? If you have any of these, take 2000 mg of Tums (calcium carbonate) and wait an hour. ?? If they return, you may take more Tums. ?? If the problem continues, call the clinic at (8 a.m.-4:30 p.m., Monday-Monday) orcall the surgeon lease administration analyst at . When to call and go to the ER Call the surgeon lease administration analyst and go directly to the Emergency Room if you have any of these signs that you could have a bleeding problem: ?? A lot of neck swelling or bruising ?? New or worse problems breathing or swallowing These problems may be due to a bleeding problem, especially if they happen within the first 24 hours after surgery. If you feel it is an emergency, call [phone]. Call the surgeon lease administration analyst at . Follow up ?? You will return to clinic to see the Endocrine Surgeon or the Endocrine Surgery Nurse Practitioner on the date scheduled during your office visit before surgery. ?? If you do not have an appointment, call the office at to schedule one. * Shaji Samuels RN - 10/10/2024 11:45 AM EDT Images from the original note were not included. [id number] * Shaji Samuels RN - 10/10/2024 11:45 AM EDT Images from the original note were not included. [id number] Having Parathyroid Surgery You have 1 or more enlarged parathyroid glands. This can cause primary hyperparathyroidism. The parathyroid glands control the calcium level in your blood. Primary hyperparathyroidism causes high levels of blood calcium (hypercalcemia). This can lead to problems all over your body. To treat the prob francisco j, the enlarged glands are often removed with surgery. You may need 1 or more parathyroid glands removed. The decision about how many glands to remove is often made during surgery. Ask your healthcare provider for more information. Risks and possible complications The risks and possible complications of this procedure include: ?? Bleeding ?? Infection ?? Reaction to anesthesia ?? Thyroid gland problems ?? Injury to laryngeal nerves that affect the vocal cords ?? Failure to find the enlarged gland or glands ?? Need for more surgery ?? Low calcium and parathyroid levels (hypoparathyroidism) Getting ready for surgery After your surgery is scheduled, you?ll be told how to get ready. Follow all instructions and ask questions as needed. Have all of your presurgery questions answered before you sign the informed consent form. Signing this form means that you agree to the procedure. Make sure to: ?? Tell your healthcare provider about any medicines you?re taking. This includes [id number]-[id number] and prescription medicines. It also includes vitamins, herbs, and other supplements. You may need tostop taking some medicines 1 to 2 weeks before surgery. These include aspirin and anti-inflammatorymedicines, such as ibuprofen and naproxen. ?? Follow all directions you're given for not eating or drinking before surgery. ?? Arrange for an adult family member or friend to give you a ride home after surgery. The day of surgery Arrive for surgery on time. Before going to surgery: ?? You?ll need to register. This may be done ahead of time during an earlier visit, online, or overthe phone. Have photo identification and insurance information ready. ?? An IV (intravenous) line will be placed in a vein in your arm or hand. This is used to give fluids and medicines. ?? A healthcare provider or nurse will talk with you about what type of pain medicine (anesthesia) you'll have during surgery. During the surgery ?? A cut (incision) is made in your neck. ?? One or more enlarged parathyroid glands are removed. In some cases, all 4 glands are enlarged. When this happens, 3 1/2 of the glands may be taken out. The remaining 1/2 gland often makes enough hormone to replace 4 normal glands. In rare cases, all of the glands are taken out. ?? If all 4 glands are taken out, part of 1 gland is then placed in another part in the body (parathyroid autotransplantation). It's often placed in the neck or arm. The moved gland keeps working from this new place in the body. ?? When surgery is done, the incision is closed with stitches, strips of surgical tape, or surgicalglue. After the surgery Recovery is often quick. You may go home on the day of surgery. Or you may need to stay overnight. Once you?re ready to go home, you?ll be given instructions for how to care for yourself. Follow these carefully. You may need to take vitamin D and calcium supplements after the surgery. You may need to have your parathyroid hormone and calcium blood level tested after surgery. That's because it sometimes drops right after surgery. When to call your healthcare provider Call your healthcare provider if you have any of these during your recovery: ?? Numbness or tingling in the fingertips or around the mouth ?? Muscle cramping or spasms ?? Neck swelling ?? Fever of 100.4??F ( 38.0??C) or higher, or as advised by your provider ?? More redness, swelling, or fluid leaking from the incision site ?? Upset stomach (nausea) or vomiting ?? Hoarse voice that gets worse ?? Trouble breathing ?? Trouble swallowing ?? Irregular heartbeat Last Reviewed Date: 2023 00:00:00 ?? [id number] [employer]. All rights reserved. This information is not intended as a substitute for professional medical care. Always follow your healthcare professional's instructions. * Assessment & Plan Note - Anel Gomez MD - 10/10/2024 11:00 AM EDT Associated Problem(s): Hyperparathyroidism ([facility]) Orders: Case Request Operating Room: PARATHYROIDECTOMY; Standing * Progress Notes - Anel Gomez MD - 10/10/2024 11:00 AM EDT Subjective We had the pleasure of seeing your 59 y.o. patient Bre Gray in follow up for primary hyperparathyroidism. She was last seen in our clinic 3 month(s) ago on 07/11/2024. She has a hx of KAVIN c/b urinary retention s/p cystectomy with neobladder now requiring catheterizations and intermittent hx of bladder stones. Has a pacemaker for bradycardia. Diagnosis of primary hyperparathyroidism supported by Ca 10.6, PTH 135 on 07/11/24. Has osteoporosis with T -2.7. Bladder stones have improved since previous workup. Was originally seen in 2021 for primary hyperparathyroidism and labs at that time were Ca 10.9, [id number], Cr 0.9, VitD 48 per referral note. OSH US on 10/20/21 showed small thyroid nodules that not localize any parathyroid gland enlargement. She was lost to f/u at that time and returned in July of this year to re-establish care. Since the prior visit, the patient has undergone imaging (nuclear SPECT/CT (08/13/2024 at which showed an enlarged hypercellular parathyroid gland in the right neck along the tracheoesophageal groove at the level of the mid right thyroid lobe.)). The patient has noticed no change in symptoms. Her family history includes COPD in her mother; Hypertension in her brother; Other cancer in her father; Squamous cell carcinoma in her father.. Past Medical History[1] Surgical History[2] Social History[3] Allergies[4] Medications Ordered Prior to Encounter[5] Review of Systems Constitutional: negative Eyes: negative Ear, Nose, Mouth & Throat: negative Cardiovascular: negative Respiratory: negative Gastrointestinal: negative Urinary: negative Musculoskeletal: negative Skin: negative Neurological: negative Psychiatric: negative Endocrine: negative Hematologic & Lymphatic: negative Allergic/Immunologic: negative Objective Physical Exam Constitutional: No acute distress. Well appearing. Well nourished. Voice sounds normal during routine speech. Eyes: Pupils equal and round. Extraocular movements intact. No icterus. No exophthalmos. Ear, Nose, Mouth & Throat: Hearing normal. Moist mucous membranes. Neck: Neck was supple, symmetric, trachea midline. Pulmonary: Normal respiratory effort. Chest symmetrical. Cardiovascular: Regular rate. Abdomen: Abdomen non-tender. Musculoskeletal: Gait and station were normal. Stability was normal. Skin: No rashes or ulcers. Normal turgor. Psychiatric: Alert and orientated to person, place and time. Mood and affect were normal. Procedures: None performed today. Assessment/Plan Assessment & Plan Hyperparathyroidism ([facility]) Orders: Case Request Operating Room: PARATHYROIDECTOMY; Standing 59 y.o. female presenting in follow up for symptomatic primary hyperparathyroidism in the setting of osteoporosis. We have reviewed labs and imaging. Laboratory evaluation confirms primary hyperparathyroidism. Imaging has localized (hypercellular right parathyroid gland in the tracheoesophageal groo ve at the right mid thyroid lobe). We have personally viewed the parathyroid nuclear images which reveal enlarged right, likely superior parathyroid gland. Additional imaging is not needed for localization. We again discussed the diagnosis and evaluation of parathyroid disease, including the indications for surgery. At this time, the patient meets criteria for and will benefit from parathyroidectomy. We discussed the risks and benefits of parathyroidectomy in detail including the risk of injury to the nerves to the vocal cords resulting in temporary or permanent voice changes, inability to find the abnormal parathyroid(s) resulting in persistent elevated calcium, possible permanent low calcium requiring lifelong calcium/vitamin D replacement, and the very small risk of infection and postoperative bleeding that could require a second surgery. We will use intraoperative nerve monitoring, intraoperative parathyroid hormone monitoring and may use intraoperative gamma probe localization. The patient voiced understanding and signed informed consent. Surgical risk will be increased due to the patient's medical problems (pacemaker). The patient willneed to undergo additional preoperative risk stratification by cardiology. Comorbid conditions thatimpact our treatment planning include:none. She takes ASA81 daily which will need to be stopped one week prior. She lives 1 [place] away, so we will plan for overnight stay following surgery given her cardiac history. We look forward to seeing the patient back in 2 week(s) after surgery with no labs. It was a pleasure seeing Ms. Gray back in clinic. Please feel free to call with questions or concerns. Anel Gomez MD [1] Past Medical History: Diagnosis Date Anemia Asthma [2] Past Surgical History: Procedure Laterality Date BLADDER SURGERY N/A Bladder Surgery from [facility] CARDIAC PACEMAKER PLACEMENT N/A Pacemaker Placement from [facility] HIP SURGERY N/A Hip Repair from [facility] HYSTERECTOMY N/A Hysterectomy from [facility] OTHER SURGICAL HISTORY N/A Pacemaker removal from [facility] SHOULDER SURGERY Right [3] Social History Tobacco Use Smoking status: Never Smokeless tobacco: Never Vaping Use Vaping status: Never Used Substance Use Topics Alcohol use: Yes Alcohol/week: 1.0 - 2.0 standard drink of alcohol Types: 1 - 2 Standard drinks or equivalent per week Drug use: No Comment: Drug use: No illicit drug use [4] Allergies Allergen Reactions Butorphanol Itching Ciprofloxacin Itching and Unknown - Patient states they do not know rxn details Hydrocodone Itching Hydrocodone-Acetaminophen Itching Ketorolac Tromethamine Itching Methadone Itching Morphine Itching Other Itching Oxycodone Itching Oxycodone-Acetaminophen Itching Tramadol Itching Trimethoprim Hives Acetaminophen Unknown - Patient states they do not know rxn details Amitriptyline Other - please document in the comment field syncope Ampicillin Other - please document in the comment field mouth sores Sulfa Drugs Unknown - Patient states they do not know rxn details Sulfamethoxazole-Trimethoprim Other - please document in the comment field mouth sores Sumatriptan Other - please document in the comment field syncope [5] Current Outpatient Medications on File Prior to Visit: alendronate, aspirin, Chew 1 (one) time each day. azelastine, Administer into each nostril 1 (one) time each day. buPROPion SR, Take 1 tablet (100 mg) by mouth 2 (two) times a day. cetirizine, Take 1 tablet (10 mg) by mouth 1 (one) time each day. cholecalciferol, Take 1 tablet by mouth 1 (one) time each day. cyanocobalamin, Inject 1 mL into the muscle every 30 (thirty) days. loperamide, as needed. meloxicam, Take 1 tablet by mouth. midodrine, Take 3 tablets (15 mg) by mouth 1 (one) time each day. omeprazole, Take 1 capsule by mouth daily. ondansetron ODT, as needed. ProAir HFA, 2 PUFF(S) INHALED EVERY 6 HOURS NEEDED FOR COUGH OR SHORTNESS OF BREATH gentamicin, Irrigate with 30 mL daily as directed. (Patient not taking: Reported on 07/11/2024) omeprazole, Take by mouth 1 (one) time each day. (Patient not taking: Reported on 07/11/2024) Trospium Chloride ER, Take 1 capsule (60 mg) by mouth 1 (one) time each day. (Patient not taking: Reported on 07/11/2024) Cosigned by Chester Hardin MD at 10/14/2024 10:17 AM EDT Associated attestation - Chester Hardin MD - 10/14/2024 10:17 AM EDT I saw and evaluated the patient with the resident/fellow. I discussed the case with the resident/fellow and agree with the findings and plan as documented. 59F with history of KAVIN c/b urinary retention s/p cystectomy with neobladder now requiring catheterizations and bladder stones. Pacemaker paced for history of bradycardia. Concern for PHPT. Ca 10.9, PTH 103, Cr 0.9, VitD 48 per referral note. Osteoporosis, T -2.7. Outside [place] 10/20/21 reviewed by me with small thyroid nodules, largest 7mm; limited study inadequately imaging the thyroid/parathyroid.Outside [place] 10/20/21 non-localizing, reviewed by with me possible very subtle left superior focus. UStoday with low confidence right superior target. She was lost to follow up but presents today to discuss parathyroid disease. Labs 03/11/24: PTH 183.3 but normal calcium 9.8. Cr 0.90. Labs 07/11/24: Cr 0.89, Ca 10.6, AlkPhos 114, PTH 135, iCal 5.8, vitD 61.3. Labs confirm primary hyperparathyroidism. 24hr urine calcium 07/13/24 low at 57. Genetic testing for CaSR mutation negative. NM SPECT/CT reports right hypercellular parathyroid gland. Images reviewed by me with right superior partially descended parathyroid candidate. We discussed parathyroid disease and parathyroidectomy, including risks and expected course. Parathyroidectomy PAT Overnight observation Thank you, Chester Hardin MD, FACS archaeology professor General, Endocrine & Metabolic Surgery documented in this encounter Plan of Treatment Upcoming Encounters Date Type Department Care Team (Latest Contact Info) Description 11/19/2024 11:30 AM EDT Appointment Cardiac Imaging [address] [place] [address] 12/02/2024 12:30 PM EDT Appointment [facility] Radiology [address] [place] [address] 12/11/2024 9:30 AM EDT Pre-Admission Testing [facility] Anesthesia [address] [place] [address] 12/25/2024 8:00 AM EDT Hospital Encounter [facility] Operating Room [address] [place] [address] Chester Hardin MD [address] [place] [address] 12/25/2024 8:00 AM EDT - 12/25/2024 10:30 AM EDT Surgery [facility] Operating Room [address] [place] [address] Chester Hardin MD [address] [address] PARATHYROIDECTOMY [[id number] (CPT )] 01/09/2025 3:30 PM EDT Office Visit Medical Office Building Surgical Specialties [address] [facility], [address] [place] [address] Chester Hardin MD [address] [address] Scheduled Procedures Name Priority Associated Diagnoses Date/Ti me PARATHYROIDECTOMY Hyperparathyroidism ([facility]/HCC) 12/25/2024 8:00 AM EDT documented as of this encounter Goals Goal Patient Goal Type Associated Problems Recent Progress Patient-Stated? Author Autogenerat ed Goal Care Plan Autogenerated Problem No Anel Gomez MD documented as of this encounter Visit Diagnoses Diagnosis Hyperparathyroidism (CMS/HCC)- Primary Hyperparathyroidism, unspecified Hyperparathyroidism (CMS/HCC)- Primary Hyperparathyroidism, unspecified Hyperparathyroidism (CMS/HCC) Hyperparathyroidism, unspecified documented in this encounter Additional Health Concerns Active Problems Noted Date Diagnosed Date Autogenerated Problem 10/31/2024 Infection Onset Date Last Indicated Resolved Time C. difficile 07/10/2024 07/10/2024 Assessment Noted Time PHQ-9 Depression Total Score: 0 10/11/19 25 11:04 AM EDT A fall risk assessment has been complete d for the patient 10/21/2021 9:09 AM EDT A Body Mass Index follow-up plan has been documented for the patient 10/10/2024 11:58 AM EDT documented as of this encounter Care Teams Backside Grinder Relationship Specialty Start Date End Date Honorio Mackey MD [address] [place] [address] [address] [place] [address] PCP - General 03/22/23 documented as of this encounter
--- OUTSIDE RECORDS SUMMARY | 2024-11-14 11:11 | XMS_ITS | Encounter Summary ---
Author Organization [facility] Address [address] [place] [address] Care Team Providers Care Surgical Assist Name Role Phone Logan Marie MD Primary Care Provider [phone] Honorio Mackey MD Primary Care Provider [phone] Reason for Referral * Consultation (Routine) - Closed Specialty Diagnoses / Procedures Referred By Carmella solano Referred To Contact Nephrology Diagnoses Serum calcium elevated Elevated parathyroid hormone Charity Velasco, BEET FLUMER [address] [address] Phone: tel: fax: Referral ID Status Reason Start Date Expiration Date V isits Requested Visits Authorized [id number] Closed Specialty Services Required 08/11/2021 02/10/2023 1 1 Encounter Details Date Type Department Care Team (Late st Contact Info) Description 08/11/2021 Community [facility] [address] [place] [address] Charity Velasco, BEET FLUMER [address] [id number] Serum calcium elevated (Primary Dx); Elevated parathyroid hormone Social History Tobacco Use Types Packs/Day Years Used Date Smoking Tobacco: Never Smokeless Tobacco: Never Alcohol Use Standard Drinks/Week Comments Yes 1 (1 standard drink = 0.6 oz pur e alcohol) PHQ-2 Answer Date Recorded Patient Health Questionnaire-2 Score 0 08/11/2021 Comments Unknown Sex and Gender Information Value Date Recorded Sex Assigned at Female 11/15/2022 7:59 PM EDT Legal Sex Female 8:29 PM EDT Gender Identity Female 11/15/2022 7:59 PM EDT Sexual Orientation Straight 11/15/2022 7: 59 PM EDT COVID-19 Exposure Response Date Recorded In the last 10 days, have yo u been in contact with someone who was confirmed or suspected to have Coronavirus/COVID-19? No / Unsure 08/11/2021 12:02 PM EDT documented as of this encounter Functional Status * Over the past 2 weeks, how often have you been bothered by any of the following problems? Question Answer Date of Assessment Author Little interest or pleasure in doing things Not at all 08/11/2021 12:49 PM EDT Clotilde Ibarra RN Feeling down, depressed, or hopeless Not at all 08/11/2021 12:49 PM EDT Clotilde Ibarra RN Patient Health Questionnaire-2 Score 0 08/11/2021 12:49 PM EDT Cathi Ibarra RN * Calculated C-SSRS Risk Score (Lifetime/Recent) Answer Date of Assessment Author No Risk Indicated 08/11/2021 12:48 PM EDT Clotilde Calvillo RN * Question Answer Date of Assessment Author 1. Wish to be (Past 1 Month) No 08/11/2021 12:48 PM EDT Clotilde Ibarra RN 2. Non-Specific Active Suici chacha Thoughts (Past 1 Month) No 08/11/2021 12:48 PM EDT Jossy Ibarra RN 6. Suicidal Behavior (Lifetime) No 12:48 PM EDT Clotilde Ibarra RN documented as of this encounter Plan of Treatment Upcoming Encounters Date Type Department Care Team (Latest Contact Info) Description 11/19/2024 11:30 AM EDT Appointment Cardiac Imaging [address] [place] [address] 12/02/2024 12:30 PM EDT Appointment [facility] Radiology [address] [place] [address] 12/11/2024 9:30 AM EDT Pre-Admission Testing [facility] Anesthesia [address] [place] [address] 12/25/2024 8:00 AM EDT Hospital Encounter [facility] Operating Room [address] [place] [address] Chester Hardin MD [address] [address] 12/25/2024 8:00 AM EDT - 12/25/2024 10:30 AM EDT Surgery [facility] Operating Room [address] [place] [address] Chester Hardin MD [address] [address] PARATHYROIDECTOMY [[id number] (CPT )] 01/09/2025 3:30 PM EDT Office Visit Medical Office Building Surgical Specialties [address] [facility], [address] [place] [address] Chester Hardin MD [address] [address] Scheduled Procedures Name Priority Associated Diagnoses Date/Ti me PARATHYROIDECTOMY Hyperparathyroidism ([facility]/HCC) 12/25/2024 8:00 AM EDT Scheduled Referrals Name Type Priority Associated Diagnoses Orde r Schedule Ambulatory referral to Nephrology Outpatient Referral Routine Serum calcium elevated Elevated parathyroid hormone Expected: 08/11/2021 (Approximate), Expires: 02/11/2023 documented as of this encounter Visit Diagnoses Diagnosis Serum calcium elevated- Primary Hypercalcemia Elevated parathyroid hormone Hyperparathyroidism (CMS/HCC) Hyperparathyroidism, unspecified documented in this encounter Additional Health Concerns Infection Onset Date Last Indicated Resolved Time C. difficile 07/10/2024 07/10/2024 Assessment Noted Time A fall risk assessment has been complete d for the patient 08/11/2021 12:49 PM EDT documented as of this encounter Care Teams Surgical Assist Relationship Specialty Start Date End Date Logan Marie MD [address] [place] [address] PCP - General 08/11/21 03/21/23 Honorio Mackey MD [address] [place] [address] [address] [place] [id number] PCP - General 03/22/23 documented as of this encounter
--- OUTSIDE RECORDS SUMMARY | 2024-11-14 11:11 | XMS_ITS | Encounter Summary ---
Author Organization Healthcare Address [address] [place] [address] Care Team Providers Care Highway Truck Driver Name Role Phone Nidia Lugo APRN Primary Care Provider [phone] Logan Marie MD Primary Care Provider [phone] Honorio Mackey MD Primary Care Provider [phone] Reason for Visit * Reason Onset Date Comments HCN - Patient Message 08/02/2021 Regarding her appointment on 08/04 Encounter Details Date Type Department Care Team (Late st Contact Info) Description 08/02/2021 Telephone MD Clinic Urology [address] [place] [address] Jenni Bedolla, ZAY, DNP [address] [place] [address] HCN - Patient Message (Regarding her appointment on 08/04) Social History Tobacco Use Types Packs/Day Years Used Date Smoking Tobacco: Never Alcohol Use Standard Drinks/Week Comments No 0 (1 standard drink = 0.6 oz pur e alcohol) Comments Unknown Sex and Gender Information Value Date Recorded Sex Assigned at Female 11/15/2022 7:59 PM EDT Legal Sex Female 8:29 PM EDT Gender Identity Female 11/15/2022 7:59 PM EDT Sexual Orientation Straight 11/15/2022 7: 59 PM EDT COVID-19 Exposure Response Date Recorded In the last 10 days, have ryne allen been in contact with someone who was confirmed or suspected to have Coronavirus/COVID-19? No / Unsure 08/04/2021 8:41 AM EDT documented as of this encounter Miscellaneous Notes * Telephone Encounter - Rhonda Esparza - 08/02/2021 10:07 AM EDT Patient Phone Message Reason for Call: Patient is scheduled for a TH on 08/04 and she would like to be seen in person. Best contact number and optimal time of day to reach caller: [phone] Note: Please do not reply to this message. Follow-up communication and further actions as a result of this message need to be communicated with the patient directly, if the patient is not active onMyChart. If the patient is active on MyChart, they will receive notification of the communication/outcome via MyChart. documented in this encounter Plan of Treatment Upcoming Encounters Date Type Department Care Team (Latest Contact Info) Description 11/19/2024 11:30 AM EDT Appointment Cardiac Imaging [address] [place] [address] 12/02/2024 12:30 PM EDT Appointment [facility] Radiology [address] [place] [address] 12/11/2024 9:30 AM EDT Pre-Admission Testing [facility] Anesthesia [address] [place] [address] 12/25/2024 8:00 AM EDT Hospital Encounter [facility] Operating Room [address] [place] [address] Chester Hardin MD [address] [address] 12/25/2024 8:00 AM EDT - 12/25/2024 10:30 AM EDT Surgery [facility] Operating Room [address] [place] [address] Chester Hardin MD [address] [address] PARATHYROIDECTOMY [[id number] (CPT )] 01/09/2025 3:30 PM EDT Office Visit Medical Office Building Surgical Specialties [address] [facility], [address] [place] [address] Chester Hardin MD [address] [address] Scheduled Procedures Name Priority Associated Diagnoses Date/Ti me PARATHYROIDECTOMY Hyperparathyroidism ([facility]) 12/25/2024 8:00 AM EDT documented as of this encounter Visit Diagnoses Not on filedocumented in this encounter Additional Health Concerns Infection Onset Date Last Indicated Resolved Time C. difficile 07/10/2024 07/10/2024 documented as of this encounter Care Teams Highway Truck Driver Relationship Specialty Start Date End Date Nidia Lugo, COMPUTER SCIENCE INSTRUCTOR [address] [place] [address] PCP - General 08/21/20 08/10/21 Logan Marie MD [address] [place] [address] PCP - General 08/11/21 03/21/23 Honorio Mackey MD [address] [place] [address] [address] [place] [address] PCP - General 03/22/23 documented as of this encounter
--- OUTSIDE RECORDS SUMMARY | 2024-11-14 11:11 | XMS_ITS | Clinical Summary ---
Author Organization [facility] Address [address] [place] [address] Care Team Providers Care Land Development Manager Name Role Phone Logan Marie MD Primary Care Provider Allergies Active Allergy Reactions Criticality Noted Date Comments Ampicillin Rash Low 12/23/2020 Rash on her tongue Ciprofloxacin Itching 12/23/2020 Codeine Itching 12/23/2020 Sulfamethoxazole-Trimeth oprim Rash Low 12/23/2020 Rash on tongue Amitriptyline Other (See Comments) 12/23/2020 syncope Sumatriptan Itching 12/23/2020 Methadone Itching 12/23/2020 Morphine Itching 12/23/2020 Oxycodone Itching 12/23/2020 Oxycodone-Acetaminophen Itching 12/23/2020 Butorphanol Itching 12/23/2020 Ketorolac Tromethamine Itching 12/23/2020 Tramadol Itching 12/23/2020 Medications azelastine (ASTELIN) 0.1 % nasal spray 10/16/2020 Active buPROPion (WELLBUTRIN) 100 MG tablet Take 100 mg by mouth 2 (Two) Times a Day. 10/16/2020 Active aspirin 81 MG EC tablet Take 81 mg by mouth Daily. Active omeprazole (priLOSEC) 20 MG capsule Take 20 mg by mouth 2 (two) times a day. Active midodrine (PROAMATINE) 5 MG tablet Take 5 mg by mouth 3 (Three) Times a Day Before Meals. Active loratadine (CLARITIN) 10 MG tablet Take by mouth Every 6 (Six) Hours. 08/04/2020 Active gabapentin (Neurontin) 100 MG capsuleIndicati ons:Arthritis,D DD (degenerative disc disease), lumbar,Sciatica of right side,Chronic SI joint pain Take 1 capsule by mouth 3 (Three) Times a Day. Take 1 at bedtime, after 5 days can take 2 at at bedtime 30 capsule 01/04/2021 Active gabapentin (NEURONTIN) 300 MG capsuleIndicati ons:Arthritis,D DD (degenerative disc disease), lumbar,Sciatica of right side,Chronic SI joint pain Take 1 capsule every morning and 2 capsules at bedtime. 90 capsule 1 02/09/2021 Active pregabalin (LYRICA) 75 MG capsuleIndicati ons:Sciatica of right side Take 1 capsule by mouth 2 (Two) Times a Day. 60 capsule 03/19/2021 Active Active Problems Problem Noted Date Diagnosed Date Exam for clinical research 12/23/2020 Overview (12/23/2020): Added automatically from request for surgery [id number] DDD (degenerative disc disease), lumbar 12/24/19 Overview (12/23/2020): Added automatically from request for surgery [id number] Sciatica of right side 12/23/2020 Overview (12/23/2020): Added automatically from request for surgery [id number] Chronic SI joint pain 12/23/2020 Overview (12/23/2020): Added automatically from request for surgery [id number] Arthritis Family History Medical History Relation Name Comments Cancer Father Cancer Mother Relation Name Status Comments Father Mother Social History Tobacco Use Types Packs/Day Years Used Date Smoking Tobacco: Never Smokeless Tobacco: Never Alcohol Use Standard Drinks/Week Comments Yes 0 (1 standard drink = 0.6 oz pur e alcohol) 1 beer per day for urination Abuse Screen Answer Date Recorded Unsafe at Home or Work/School Not on file Feels Threatened by Someone? Not on file Does Anyone Keep You from Co ntacting Others or Doint Things Outside the Home? Not on file 01/20/2023 Physical Sign of Abuse Present Not on file 1 Housing Stability Answer Date Recorded Current Living Arrangements Not on file 01/08 Potentially Unsafe Housing Conditions Not on loretta e 01/20/2023 Family and Community Support Answer Felipe e Recorded Help with Day-to-Day Activities Not on file 01/20/2023 Lonely or Isolated Not on file 01/20/2023 Employment Answer Date Recorded Do you want help finding or keeping work or a liam b? Not on file 01/20/2023 Disabilities Answer Date Recorded Concentrating, Remembering, or Making Decisions Difficulty Not on file 01/20/2023 Doing Errands Independently Difficulty Not on fi le 01/20/2023 Education Answer Date Recorded Help with school or training? Not on file Preferred Language Not on file 01/20/2023 Comments No Sex and Gender Information Value Date Recorded Sex Assigned at Not on file Legal Sex Female 1:47 PM EDT Gender Identity Not on file Sexual Orientation Not on file Last Filed Vital Signs Vital Sign Reading Time Taken Comments Blood Pressure 134/74 12/31/2020 11:55 AM EDT post ambulation Pulse 66 12/31/2020 11:50 AM EDT Temperature 36.4 C (97.6 F) 12/31/2020 9:22 AM EDT Respiratory Rate 18 12/31/2020 11:5 0 AM EDT Oxygen Saturation 100% 12/31/2020 11: 55 AM EDT Inhaled Oxygen Concentration - - Weight 54 kg (119 lb) 12/31/2020 3:19 PM EDT Height 157.5 cm (5' 2 ) 12/31/2020 3:19 PM EDT Body Mass Index 21.77 12/31/2020 3:19 PM EDT Plan of Treatment Health Maintenance Due Date Last Done Comments Annual Gynecologic Pelvic and Breast Exam 1965 TDAP/TD VACCINES (1 - Tdap) 02/24/1983 MAMMOGRAM 2004 COLOGUARD 02/24/2009 COLON CANCER SCREENING 5 YEA R SIGMOIDOSCOPY 02/24/2009 COLONOSCOPY 02/24/2009 COLORECTAL CANCER SCREENING 02/24/2009 CT COLONOGRAPHY 02/24/2009 FECAL OCCULT BLOOD TEST 02/24/2009 FIT Testing (1 year) 02/24/2009 Pneumococcal Vaccine 50+ (1 of 1 - PCV) 02/24/2014 ZOSTER VACCINE (1 of 2) 02/24/2014 ANNUAL PHYSICAL 12/04/2020 HEPATITIS C SCREENING 12/04/2020 COVID-19 Vaccine ( season) 2023, 07/30/2020 INFLUENZA VACCINE 01/08/2025 [place] [address] [facility] Care Teams Land Development Manager Relationship Specialty Start Date End Date Logan Marie MD [address] [place] [address] [place] [address] PCP - General Internal Medicine 12/04/20
--- OUTSIDE RECORDS SUMMARY | 2024-11-14 11:11 | XMS_ITS | Encounter Summary ---
Author Organization [facility] Address [address] [place] [address] Care Team Providers Care Cement Mason Apprentice Name Role Phone Honorio Mackey MD Primary Care Provider [phone] Encounter Details Date Type Department Care Team (Latest Contact Info) Description 10/09/2024 Travel Social History Tobacco Use Types Packs/Day Years [...] declined 07/11/2024 How often do you attend worship or evangelical serv ices? Patient declined 07/11/2024 Do you belong to any clubs o r organizations such as worship groups, unions, fraternal or athletic groups, or [...] any time in the past 12 m [facility], were you homeless or living in a detention (including now)? Patient declined 07/11/2024 Humiliation, Afraid, [...] week 10/10/2024 How often do you attend chur ch or evangelical services? Never 10/10/2024 Do you belong to any clubs o r organizations such as worship groups, unions, fraternal or athletic groups, or [...] and heating? Not hard at all 10/10/2024 [facility] - Occupational Stress [...] any time in the past 12 m [facility], were you homeless or living in a detention (including now)? No 10/10/2024 Utilities Answer Date [...] PM EDT documented as of this encounter Plan of Treatment Upcoming Encounters Date Type Department Care Team (Latest Contact Info) Description 11/19/2024 11:30 AM EDT Appointment Cardiac Imaging [address] [place] [address] 12/02/2024 12:30 PM EDT Appointment [facility] Radiology [address] [place] [address] 12/11/2024 9:30 AM EDT Pre-Admission Testing [facility] Anesthesia [address] [place] [address] 12/25/2024 8:00 AM EDT Hospital Encounter P[facility] S Operating Room [address] [place] [address] Chester Hardin MD [address] [place] [phone] 12/25/2024 8:00 AM EDT - 12/25/2024 10:30 AM EDT Surgery [facility] S Operating Room [address] [place] [address] Chester Hardin MD [address] [address] PARATHYROIDECTOMY [[id number] (CPT )] 01/09/2025 3:30 PM EDT Office Visit Medical Office Building Surgical Specialties [address] [facility], [address] [place] [address] Chester Hardin MD [address] [place] [phone] Scheduled Procedures Name Priority Associated Diagnoses Date/Ti me PARATHYROIDECTOMY Hyperparathyroidism ([facility]) 12/25/2024 8:00 AM EDT documented as of [...] documented as of this encounter Care Teams Cement Mason Apprentice Relationship Specialty Start Date End Date Honorio Mackey MD [address] [place] [address] [address] [place] [address] PCP - General 03/22/23 documented as of this encounter
--- OUTSIDE RECORDS SUMMARY | 2024-11-14 11:11 | XMS_ITS | Clinical Summary ---
Author Organization Healthcare Address [address] [place] [address] Care Team Providers Care Aircraft Engineer Name Role Phone Honorio Mackey MD Primary Care Provider [phone] Allergies Active Allergy Reactions Criticality Noted Date Comments Acetaminophen Unknown - Patient states they do not know rxn details Low 06/01/2016 Amitriptyline Other - please document in the comment field Low 05/05/2016 syncope Ampicillin Other - please document in the comment field Low 05/05/2016 mouth sores Butorphanol Itching Medium 05/05/2016 Ciprofloxacin Itching,Unknown - Patient states they do not know rxn details Medium 06/16/2016 Hydrocodone Itching Medium 10/09/2020 Hydrocodone-Acetaminophen Itching Medium 02/01/2023 Ketorolac Tromethamine Itching Medium 05/05/2016 Methadone Itching Medium 05/05/2016 Morphine Itching Medium 05/05/2016 Other Itching Medium 05/05/2016 Oxycodone Itching Medium 05/05/2016 Oxycodone-Acetaminophen Itching Medium 12/23/2020 Sulfa Drugs Unknown - Patient states they do not know rxn details Low 06/01/2016 Sulfamethoxazole-Trimetho prim Other - please document in the comment field Low 05/05/2016 mouth sores Sumatriptan Other - please document in the comment field Low 05/05/2016 syncope Tramadol Itching Medium 05/05/2016 Trimethoprim Hives Medium 10/09/2020 Medications ProAir HFA 108 (90 Base) MCG/ACT inhaler 2 PUFF(S) INHALED EVERY 6 HOURS NEEDED FOR COUGH OR SHORTNESS OF BREATH 05/28/19 Active aspirin 81 MG chewable tablet Chew 1 (one) time each day. 06/01/19 17 Active azelastine (Astelin) 0.1 % nasal spray Administer into each nostril 1 (one) time each day. 10/17/19 21 Active buPROPion SR (Wellbutrin SR) 100 MG 12 hr tablet Take 1 tablet (100 mg) by mouth 2 (two) times a day. 05/28/19 22 Active cetirizine (ZyrTEC) 10 MG tablet Take 1 tablet (10 mg) by mouth 1 (one) time each day. 05/28/19 22 Active midodrine (Proamatine) 5 MG tablet Take 3 tablets (15 mg) by mouth 1 (one) time each day. 04/23/19 22 Active omeprazole (PriLOSEC) [address] capsule Take by mouth 1 (one) time each day. 05/28/19 Active gentamicin bladder irrigation 0.48 mg/mL CMPD Irrigate with 30 mL daily as directed. 900 mL 11 08/12/19 23 Active Additional Information Patient not taking.Reported on 07/11/2024 Trospium Chloride ER 60 MG capsule sustained-release 24 hr Take 1 capsule (60 mg) by mouth 1 (one) time each day. 30 capsule 10/13/19 23 Active Additional Information Patient not taking.Reported on 07/11/2024 alendronate (Fosamax) 70 MG tablet 07/02/19 25 Active cholecalciferol (Vitamin D-3) 50 MCG (2000 UT) tablet Take 1 tablet by mouth 1 (one) time each day. Active cyanocobalamin (Vitamin B-12) 1000 MCG/ML injection Inject 1 mL into the muscle every 30 (thirty) days. Active loperamide (Imodium) 2 MG capsule as needed. 10/11/19 24 Active meloxicam (Mobic) 7.5 MG tablet Take 1 tablet by mouth. 01/09/20 24 Active ondansetron ODT (Zofran-ODT) 4 MG disintegrating tablet as needed. 05/22/19 25 Active omeprazole (PriLOSEC) [address] capsule Take 1 capsule by mouth daily. 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 Presbyopia 06/17/2024 Regular astigmatism, left eye 06/17/2024 Diffuse cystic mastopathy of left breast 025 Allergic rhinitis, unspecified 04/22/2024 Unspecified inflammatory spondylopathy, cervical region 03/26/2024 Acute pharyngitis, unspecified 03/14/2024 Radiculopathy, cervical region 02/20/2024 Age-related osteoporosis wit hout current pathological fracture 02/14/2024 Bradycardia, unspecified 02/14/2024 Hypotension, unspecified 02/12/2024 Other postherpetic nervous system involvement Herpesviral infection, unspecified 01/01/2024 Deficiency of other specified B group vitamins 0 12/06/2023 Enterocolitis due to Clostri dium difficile, not specified as recurrent 12/06/2023 Hypercalcemia 11/08/2023 Urinary tract infection, site not specified 10/10 Retention of urine, unspecified 11/01/2023 Dehydration 10/11/2023 Dysuria 10/11/2023 Noninfective gastroenteritis and colitis, unspec ified 10/11/2023 Presence of coronary angioplasty implant and gra ft 10/11/2023 Syncope and collapse 09/18/2023 SSS (sick sinus syndrome) 09/13/2023 Hyperlipidemia, unspecified 08/21/2023 Hyperparathyroidism, unspecified 08/21/2023 Carotid sinus syncope 08/11/2023 Other cervical disc degenera tion, mid-cervical region, unspecified level 07/17/2023 Primary osteoarthritis, right shoulder 4 Tubulo-interstitial nephriti s, not specified as acute or chronic 07/10/2023 Pain in right shoulder 05/09/2023 Candidiasis of skin and nail 04/26/2023 Cervicalgia 04/20/2023 Cough variant asthma 04/05/2023 Viral infection, unspecified 04/05/2023 Cardiac pacemaker in situ 02/01/2023 COPD (chronic obstructive pulmonary disease) GERD (gastroesophageal reflux disease) IBS (irritable bowel syndrome) 02/01/2023 Peripheral nerve disease 02/01/2023 Encounters Date Type Department Care Team Description 10/10/2024 11:00 AM EDT Office Visit Medical Office Building Surgical Specialties [address] [facility], [address] [place] [address] Chester Hardin MD Hyperparathyroidism (CMS/HCC) (Primary Dx) 10/10/2024 Travel 10/09/2024 Travel 10/09/2024 Abstract Medical Office Building Surgical Specialties [address] [facility], [address] [place] [address] Bruno Macias 09/17/2024 8:30 AM EDT Clinical Support Pav [facility] [address] [facility], 2nd [place] [address] Gaby Delacruz, GC Encounter for nonprocreative genetic counseling (Primary Dx); Primary hyperparathyroidism (CMS/HCC) 09/16/2024 Travel 09/06/2024 Telephone [facility] Genetic Counseling [address] [facility], [address] [place] [address] Gaby Delacruz, GC 09/06/2024 Telephone [facility] [address] [facility], 1st [place] [address] Gaby Delacruz, GC 08/28/2024 Telephone [facility] [address] [facility], 1st [place] [address] Rekha Kuo Genetic Counseling Intake 08/14/2024 Orders Only Medical Office Building Surgical Specialties [address] [facility], [address] [place] [address] Chester Hardin MD Primary hyperparathyroidism (CMS/HCC) (Primary Dx) from Last 3 Months Family History Medical History Relation Name Comments Hypertension Brother Other cancer Father Squamous cell carcinoma Father COPD Mother Relation Name Status Comments Brother Father Mother Social History Tobacco Use Types [...] declined 07/11/2024 How often do you attend synagogue or pentecostal serv ices? Patient declined 07/11/2024 Do you belong to any clubs o r organizations such as synagogue groups, unions, fraternal or athletic groups, or [...] any time in the past 12 m [facility], were you homeless or living in a penitentiary (including now)? Patient declined 07/11/2024 Humiliation, Afraid, [...] week 10/10/2024 How often do you attend [facility] or pentecostal services? Never 10/10/2024 Do you belong to any clubs o r organizations such as synagogue groups, unions, fraternal or athletic groups, or [...] and heating? Not hard at all 10/10/2024 [facility] of Occupat ional Health - Occupational Stress [...] any time in the past 12 m [facility], were you homeless or living in a penitentiary (including now)? No 10/10/2024 Utilities Answer Date Recorded In the past 12 months has th e [employer], gas, oil, or water company threatened to shut off services in your home? No 10/10/2024 PHQ-2A Answer Date Recorded Patient Health Questionnaire-2 Score 0 08/11/2022 Comments No Sex and Gender Information Value Date Recorded Sex Assigned at Female 11/15/2022 7:59 PM EDT Legal Sex Female 8:29 PM EDT Gender Identity Female 11/15/2022 7:59 PM EDT Sexual Orientation Straight 11/15/2022 7: 59 PM EDT Last Filed Vital Signs Vital Sign Reading Time Taken Comments Blood Pressure 118/79 10/10/2024 11:02 AM EDT Pulse 79 10/10/2024 11:02 AM EDT Temperature 36.9 C (98.4 F) 07/11/2024 3:20 PM EDT Respiratory Rate 16 10/10/2024 11:02 AM EDT Oxygen Saturation 100% 10/10/2024 11:02 AM EDT Inhaled Oxygen Concentration - - Weight 51.4 kg (113 lb 5.1 oz) 10/10/2024 11:02 AM EDT Height 157.5 cm (5' 2 ) 10/10/2024 11:02 AM EDT Body Mass Index 20.73 10/10/2024 11:02 AM EDT Plan of Treatment Upcoming Encounters Date Type Department Care Team (Latest Contact Info) Description 11/19/2024 11:30 AM EDT Appointment Cardiac Imaging [address] [place] [address] 12/02/2024 12:30 PM EDT Appointment [facility] A Radiology [address] [place] [address] 12/11/2024 9:30 AM EDT Pre-Admission Testing [facility] Anesthesia [address] [phone] 12/25/2024 8:00 AM EDT Hospital Encounter P[facility] S Operating Room [address] [place] [address] Chester Hardin MD [address] [phone] 12/25/2024 8:00 AM EDT - 12/25/2024 10:30 AM EDT Surgery [facility] S Operating Room [address] [place] [address] Chester Hardin MD [address] [address] PARATHYROIDECTOMY [[id number] (CPT )] 01/09/2025 3:30 PM EDT Office Visit Medical Office Building Surgical Specialties [address] [facility], [address] [place] [address] Chester Hardin MD [address] [address] Scheduled Procedures Name Priority Associated Diagnoses Date/Ti me PARATHYROIDECTOMY Hyperparathyroidism (CMS/HCC) 12/25/2024 8:00 AM EDT Health Maintenance Due Date Last Done Comments [facility]-Bone Density Scan 1965 [facility]-HIV Screening 1965 [facility]-Hepatitis C Screening 1965 [facility]-/Child/Adol SDOH Screenings 1965 [facility]-DTaP,Tdap,and Td Vaccine s (1 - Tdap) 02/24/1983 [facility]-Pneumococcal Vaccine: 50 + Years (1 of 2 - PCV) 02/24/1983 CT Colonography 02/24/2009 Colonoscopy 02/24/2009 FIT-DNA 02/24/2009 FIT 02/24/2009 FOBT 02/24/2009 Sigmoidoscopy 02/24/2009 [facility]-Colorectal Cancer Screening 02/24/2009 [facility]-Breast Cancer Screening 02/24/2014 [facility]-Zoster Vaccines (1 of 2) 02/24/2014 [id number] Vaccine (3 - Moderna risk series) 09/24/2020 08/27/2020, 07/30/2020 [facility]-RSV Vaccine: 60+ Years o r (1 - Risk 60-74 years 1-dose series) 2024 [facility]-Influenza Vaccine (#1) 2024 [facility]- SDOH Screenings 04/12/2025 [facility]-Adult SDOH Screenings 04/12/2025 10/10/2024 [facility]-Depression Screening 10/10/2025 025, 10/10/2024 HPV Vaccines Aged Out No longer eligi ble based on patient's age to complete this topic [facility]-HIB Vaccines Aged Out No longer e ligible based on patient's age to complete this topic [facility]-Hepatitis A Vaccines Aged Out No longer eligible based on patient's age to complete this topic [facility]-IPV Vaccines Aged Out No longer e ligible based on patient's age to complete this topic [facility]-Rotavirus Vaccines Aged Out No lo nger eligible based on patient's age to complete this topic Goals Goal Patient Goal Type Associated Problems Recent Progress Patient-Stated? Author Autogenerat ed Goal Care Plan Autogenerated Problem No Anel Gomez MD Additional Health Concerns Active Problems Noted Date Diagnosed Date Autogenerated Problem 10/31/2024 Infection Onset Date Last Indicated C. difficile 07/10/2024 07/10/2024 Insurance [place] [id number] [employer] Care Teams Aircraft Engineer Relationship Specialty Start Date End Date Honorio Mackey MD [address] [facility] [address] [place] [address] PCP - General 03/22/23
--- OUTSIDE RECORDS SUMMARY | 2024-11-14 11:11 | XMS_ITS | Encounter Summary ---
Author Organization [facility] Address [address] [place] [address] Care Team Providers Care Garment Sewer Hand Name Role Phone Honorio Mackey MD Primary Care Provider Encounter Details Date Type Department Care Team (Latest Contact Info) Description 09/16/2024 Travel Social History Tobacco Use Types Packs/Day [...] declined 07/11/2024 How often do you attend nondenominational or adventism serv ices? Patient declined 07/11/2024 Do you belong to any clubs o r organizations such as nondenominational groups, unions, fraternal or athletic groups, or [...] Recorded Patient Health Questionnaire-2 Score 0 08/11/2022 [facility] Occupat ional [facility] - Occupational Stress Questionnaire Answer Date [...] any time in the past 12 m [facility], were you homeless or living in a senior living (including now)? Patient declined 07/11/2024 Utilities Answer Date Recorded In the past 12 months has th e [employer], gas, oil, or water [employer] threatened to shut off services in your [...] AM EDT Appointment Cardiac Imaging [address] [place] [address] 12/02/2024 12:30 PM EDT Appointment [facility] A Radiology [address] [place] [address] 12/11/2024 9:30 AM EDT Pre-Admission Testing [facility] Anesthesia [address] [place] [address] 12/25/2024 8:00 AM EDT Hospital Encounter [facility] S Operating Room [address] [place] [address] Chester Hardin MD [address] [address] 12/25/2024 8:00 AM EDT - 12/25/2024 10:30 AM EDT Surgery [facility] S Operating Room [address] [place] [address] Chester Hardin MD [address] [address] PARATHYROIDECTOMY [[id number] (CPT )] 01/09/2025 3:30 PM EDT Office Visit Medical Office Building Surgical Specialties [address] [facility] [address] [place] [address] Chester Hardin MD [address] [address] Scheduled Procedures Name Priority Associated Diagnoses Date/Ti me PARATHYROIDECTOMY Hyperparathyroidism ([facility]/HCC) 12/25/2024 8:00 AM EDT documented as of [...] documented as of this encounter Care Teams Garment Sewer Hand Relationship Specialty Start Date End Date Honorio Mackey MD [address] [facility] [address] [place] [address] PCP - General 03/22/23 documented as of this encounter
--- OUTSIDE RECORDS SUMMARY | 2024-11-14 11:11 | XMS_ITS | Encounter Summary ---
Author Organization Healthcare Address [address] [place] [address] Care Team Providers Care Soaker Soda Worker Name Role Phone Honorio Mackey MD Primary Care Provider Encounter Details Date Type Department Care Team ([facility] st Contact Info) Description 10/09/2024 Abstract Medical Office Building Surgical Specialties [address] [facility], [address] [place] [address] Bruno Macias Social History Tobacco Use Types Packs/Day Years [...] declined 07/11/2024 How often do you attend yarsanism or baptism serv ices? Patient declined 07/11/2024 Do you belong to any clubs o r organizations such as yarsanism groups, unions, fraternal or athletic groups, or [...] any time in the past 12 m [facility], were you homeless or living in a long term (including now)? Patient declined 07/11/2024 Humiliation, Afraid, [...] often do you attend chur ch or baptism services? Never 10/10/2024 Do you belong to any clubs o r organizations such as yarsanism groups, unions, fraternal or athletic groups, or [...] and heating? Not hard at all 10/10/2024 [facility] of Occupat ional Health - Occupational Stress [...] any time in the past 12 m [facility], were you homeless or living in a long term (including now)? No 10/10/2024 Utilities Answer Date [...] AM EDT Appointment Cardiac Imaging [address] [place] [address] 12/02/2024 12:30 PM EDT Appointment [facility] Radiology [address] [place] [address] 12/11/2024 9:30 AM EDT Pre-Admission Testing [facility] S Anesthesia [address] [place] [address] 12/25/2024 8:00 AM EDT Hospital Encounter P[facility] S Operating Room [address] [place] [address] Chester Hardin MD [address] [place] [address] 12/25/2024 8:00 AM EDT - 12/25/2024 10:30 AM EDT Surgery P[facility] S Operating Room [address] [place] [address] Chester Hardin MD [address] [address] PARATHYROIDECTOMY [[id number] (CPT )] 01/09/2025 3:30 PM EDT Office Visit Medical Office Building Surgical Specialties [address] [facility], [address] [place] [address] Chester Hardin MD [address] [facility] [address] [place] [address] Scheduled Procedures Name Priority Associated Diagnoses Date/Ti me PARATHYROIDECTOMY Hyperparathyroidism (CMS/HCC) 12/25/2024 8:00 AM EDT documented as of [...] documented as of this encounter Care Teams Soaker Soda Worker Relationship Specialty Start Date End Date Honorio Mackey MD [address] [place] [address] [facility] [address] [place] [address] PCP - General 03/22/23 documented as of this encounter
--- OUTSIDE RECORDS SUMMARY | 2024-11-14 11:11 | XMS_ITS | Encounter Summary ---
Author Organization [facility] Address [address] [place] [address] Care Team Providers Care Watch Assembly Inspector Name Role Phone Honorio Mackey MD Primary Care Provider [phone] Encounter Details Date Type Department Care Team (Latest Contact Info) Description 10/10/2024 Travel Social History Tobacco Use Types Packs/Day [...] declined 07/11/2024 How often do you attend episcopal or baptist serv ices? Patient declined 07/11/2024 Do you belong to any clubs o r organizations such as episcopal groups, unions, fraternal or athletic groups, or [...] were you homeless or living in a jail (including now)? Patient declined 07/11/2024 Humiliation, Afraid, [...] often do you attend chur ch or baptist services? Never 10/10/2024 Do you belong to any clubs o r organizations such as episcopal groups, unions, fraternal or athletic groups, or [...] and heating? Not hard at all 10/10/2024 [facility] of Occupat ional Health - Occupational Stress [...] were you homeless or living in a jail (including now)? No 10/10/2024 Utilities Answer Date [...] as of this encounter Functional Status * AUDIT-C Score Answer Date of Assessment Author 0 10/10/2024 11:04 AM ETELVINAT Margarito Stearns * Question Answer Date of Assessment Author Q1: How often do you have a drink containing alcohol? Never 10/10/2024 11:04 AM Margarito Villasenor Q2: How many drinks containing alcohol do you have on a typical day when you are drinking? Patient does not drink 10/10/2024 11:04 AM ETELVINAT Margarito Stearns Q3: How often do you [...] much Not at all 10/10/2024 11:04 AM Margairto Villasenor Feeling tired or having silvia le energy Not at all 10/10/2024 11:04 AM Margarito Villasenor Poor appetite or overeating Not at all 10/10/2024 11 :04 AM Margarito Villasenor Feeling bad about yourself - or that you are a failure or have let yourself or your family down Not at all 10/10/2024 11:04 AM EDT Margarito Crum Trouble concentrating on thi ngs, such as reading the newspaper or watching television Not at all 10/10/2024 11:04 AM EDT Margarito Stearns Moving or speaking so slowly that other people could have noticed? Or the opposite - being so fidgety or restless that you have been moving around a lot more than usual. Not at all 10/10/2024 11:04 AM EDT Margarito Stearns Thoughts that you would be b zach off or hurting yourself in some way Not at all 10/10/2024 11:04 AM EDT Margarito Stearns Patient Health Questionnaire -9 Score 0 10/10/2024 11:04 AM EDT Margarito Stearns * If you checked off any problems on this questionnaire so far, Question Answer Date of Assessment Author How difficult have these problems made it for you to do your work, take care of things at home, or get along with other people? Not difficult at all 10/10/2024 11:04 AM EDT Margarito Stearns documented as of this encounter Plan of Treatment Upcoming Encounters Date Type Department Care Team (Latest Contact Info) Description 11/19/2024 11:30 AM EDT Appointment Cardiac Imaging [address] [place] [address] 12/02/2024 12:30 PM EDT Appointment [facility] Radiology [address] [place] [address] 12/11/2024 9:30 AM EDT Pre-Admission Testing [facility] S Anesthesia [address] [place] [address] 12/25/2024 8:00 AM EDT Hospital Encounter P[facility] S Operating Room [address] [place] [address] Chester Hardin MD [address] [address] 12/25/2024 8:00 AM EDT - 12/25/2024 10:30 AM EDT Surgery P[facility] S Operating Room [address] [place] [address] Chester Hardin MD [address] [address] PARATHYROIDECTOMY [[id number] (CPT )] 01/09/2025 3:30 PM EDT Office Visit Medical Office Building Surgical Specialties [address] [facility], [address] [place] [address] Chester Hardin MD [address] [facility] [address] [place] [address] Scheduled Procedures Name Priority Associated Diagnoses Date/Ti me PARATHYROIDECTOMY Hyperparathyroidism ([facility]) 12/25/2024 8:00 AM EDT documented as of this encounter Goals Goal Patient Goal Type Associated Problems Recent Progress Patient-Stated? Author Autogenerat ed Goal Care Plan Autogenerated Problem No Anel Gomez MD documented as of this encounter Visit Diagnoses Not on filedocumented in this encounter Additional Health Concerns Active [...] documented as of this encounter Care Teams Watch Assembly Inspector Relationship Specialty Start Date End Date Honorio Mackey MD [address] [place] [address] PCP - General 03/22/23 documented as of this encounter
== END 2024-11-13 23:59 | disposition home or self-care (01) ==
LOC: LAB.DROPOF 11-14 11:09
PROVIDERS: PCP Internal Medicine; Visit Provider Internal Medicine
DX: N39.0 Urinary tract infection, site not specified (principal)
CPT/HCPCS: 87086; 87088; 87186

== ENCOUNTER 2025-02-24 09:15 | Outpatient (CLI) | payer OTHER, SELFPAY ==
[2025-02-24 16:41] LABS: Hematocrit 38.5 % (37.0-47.0); Hemoglobin 11.9 g/dL (12.2-16.2); Immature Granulocytes % 0.2 %; Mean Corpuscular HGB Conc 30.9 g/dL (31.8-35.4); Mean Corpuscular Hemoglobin 29.1 pg (27.0-31.2); Mean Corpuscular Volume 94.1 fl (81-99); Nucleated Red Blood Cells % 0 %; Platelet Count 299 K/mm3 (142-424); Red Blood Count 4.09 M/mm3 (4.20-5.40); Red Cell Distribution Width-SD 49.5 fL; White Blood Count 6.4 K/mm3 (4.8-10.8)
[2025-02-24 17:30] LABS: Albumin Level 4.5 g/dl (3.5-5.0); Chloride 106 mmol/L (98-107)
[2025-02-24 17:31] LABS: Potassium 5.1 mmoL/L (3.5-5.1); Sodium 140 mmol/L (136-145)
[2025-02-24 17:33] LABS: Alanine Aminotransferase 13 U/L (12-78); Albumin/Globulin Ratio 1.9 (1.1-1.8); Alkaline Phosphatase 81 U/L (38-126); Anion Gap 15.1 mEq/L (5-15); Aspartate Amino Transferase 24 U/L (14-36); Bilirubin,Total 0.4 mg/dl (0.2-1.3); Blood Urea Nitrogen 27 mg/dl (7-17); Carbon Dioxide 24 mmol/L (22.0-30.0); Creatinine,Serum 1.20 mg/dl (0.52-1.04); Estimated Glomerular Filt Rate 46 ml/min (>60); GFR (African American) 55 ML/MIN (>60); Globulin 2.4 g/dL (1.3-3.2); Total Protein,Serum 6.9 g/dl (6.3-8.2)
[2025-02-24 17:34] LABS: Cholesterol 163 mg/dl (140-200); Triglycerides 106 mg/dl (30-150)
[2025-02-24 17:56] LABS: Calcium 9.8 mg/dl (8.4-10.2); Glucose 62 mg/dl (74-100); HDL Cholesterol 87 mg/dl (40-60)
== END 2025-02-24 23:59 ==
LOC: LAB.DROPOF 02-25 09:16
PROVIDERS: PCP Internal Medicine; Visit Provider Internal Medicine
DX: E53.8 Deficiency of other specified B group vitamins (principal); E78.5 Hyperlipidemia, unspecified; E21.3 Hyperparathyroidism, unspecified; M81.0 Age-related osteoporosis without current pathological fracture; G90.01 Carotid sinus syncope
CPT/HCPCS: 80053; 80061; 83970; 85025